=== PATIENT | male | born 1940 | race American Indian/Alaskan Native ===

== ENCOUNTER 2018-12-13 14:29 | Inpatient (IN) | payer MEDICARE ==
[2018-12-13] MEDS ORDERED: ONDANSETRON 4 MG/2 ML INJ ONE (15:24)
[2018-12-13 15:26] LABS: Hematocrit 27.7 % (35.5-45.6); Hemoglobin 8.6 gm/dl (11.8-15.2); Mean Corpuscular HGB Conc 31 % (32-34); Mean Corpuscular Volume 85 fl (84-94); Platelet Count 106 K/mm3 (140-440); Red Blood Count 3.26 M/mm3 (3.65-5.03)
[2018-12-13] MEDS ORDERED: ONDANSETRON 4 MG/2 ML INJ IV ONE (15:28)
[2018-12-13 15:41] LABS: Red Cell Distribution Width 22.9 % (13.2-15.2)
[2018-12-13 16:11] LABS: Alanine Aminotransferase TNR units/L (7-56); BUN/Creatinine Ratio TNR; Blood Urea Nitrogen TNR mg/dL (9-20); Calcium TNR mg/dL (8.4-10.2)
[2018-12-13 16:12] LABS: Albumin TNR g/dL (3.9-5); Hemolysis Index TNR
[2018-12-13 16:43] LABS: Basophils % (Manual) 0 % (0.0-1.8); Eosinophils % (Manual) 0 % (0.0-4.3); Total Cells Counted 100
[2018-12-13 16:45] LABS: Anisocytosis 1+
[2018-12-13] MEDS ORDERED: MORPHINE 4 MG/1 ML INJ IV ONE (17:07)
[2018-12-13] MEDS ORDERED: SODIUM CHLORIDE 0.9% 250ML 250 ML IV ONE (17:07)
[2018-12-13 17:11] LABS: Alanine Aminotransferase 111 units/L (7-56); Albumin 3.7 g/dL (3.9-5); BUN/Creatinine Ratio 19; Blood Urea Nitrogen 17 mg/dL (9-20); Calcium 8.7 mg/dL (8.4-10.2); Hemolysis Index 6
--- NOTE | 2018-12-13 17:12 | Emergency Department Report ---
ED General Adult HPI - General Chief complaint: Laceration/Recheck/Suture Stated complaint: LOW HEMOGLOBIN Time Seen by Provider: 12/13/18 16:33 Source: patient, family, EMS ( EMS documentation not available at time of chart dictation ), RN notes reviewed, old records reviewed Mode of arrival: Stretcher Limitations: Physical Limitation - History of Present Illness Initial comments: during the entire history and physical, I am ct tech and escorted by nurse Jordi Agudelo This is a 77-year-old gentleman. This patient is not known to this provider pre viously. 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 The hospitalization was interrupted with the patient leaving AGAINST MEDICAL ADVICE October 14 through October 19, also recently hospitalized at [facility] 11/15/2018 2 11/24/2018 for recurrent left wrist pain, treated with colchicine and allopurinol. Patient has reportedly followed up with an outpatient physician, Dr. Whitmore for potential cancer treatment, however, therapy has been withheld secondary to concerns regarding side effects profile. A bone marrow biopsy from August 2018 showed worsening platelet counts, anemia, conversion to amL. The patient is sent to us by a local personal half-way/retirement for evaluation of low blood counts and possible sodium imbalance. In the emergency room, the patient is awake to name, location. He complains of nontraumatic right wrist pain and right elbow pain. He states this pain is new over the past couple days. He denies additional complaints. He denies headache, neck pain, chest pain, abdominal pain, shortness of breath, hematemesis, bright red blood per rectum. Apparently, had outpatient laboratory studies performed, which sh owed a white blood cell count of 29.4, hemoglobin of 7.7, hematocrit of 25, and a sodium of 131. The patient is adamant that the wrist pain on the right side is new. As per review of his medical records, it appears that he is on Cedinir 300 mg every 12 hours for 3 days for acute leukemia. His enclose paperwork does not appear to indicate other outpatient antibiotics. -: Gradual, days(s) Location: right, upper extremity Consistency: constant Improves with: medication, rest Worsens with: movement - Related Data Home Medications Medication Instructions Recorded Confirmed Last Taken Advair Diskus 250-50 mcg 50 mcg INHALATION BID 12/13/18 12/13/18 Unknown Amlodipine Besylate 10 mg PO DAILY 12/13/18 12/13/[address] 81 mg PO DAILY 12/13/18 12/13/18 Unknown Cefdinir 300 mg PO BID 12/13/18 12/13/18 Unknown Allergies Allergy/AdvReac Type Severity Reaction Status Date / Time No Known Allergies Allergy Verified 12/13/18 15:00 ED Review of Systems ROS: Stated complaint: LOW HEMOGLOBIN Other details as noted in HPI Constitutional: malaise Eyes: denies: eye discharge ENT: denies: congestion Respiratory: denies: wheezing Cardiovascular: denies: syncope Gastrointestinal: denies: abdominal pain Genitourinary: denies: dysuria Musculoskeletal: joint swelling, arthralgia, myalgia Skin: denies: lesions Neurological: weakness Hematological/Lymphatic: denies: easy bleeding ED Past Medical Hx - Past Medical History Previous Medical History?: Yes Hx Hypertension: Yes Hx Asthma: Yes - Surgical History Past Surgical History?: No - Social History Smoking Status: Never Smoker Substance Use Type: None - Medications Home Medications: Home Medications Medication Instructions Recorded Confirmed Last Taken Type Advair Diskus 250-50 mcg 50 mcg INHALATION BID 12/13/18 12/13/18 Unknown History Amlodipine Besylate 10 mg PO DAILY 12/13/18 12/13/18 Unknown History Aspirin EC DR 81 mg PO DAILY 12/13/18 12/13/18 Unknown History Cefdinir 300 mg PO BID 12/13/18 12/13/18 Unknown History ED Physical Exam - General Limitations: No Limitations, Other (chaperoned by ARNAUD Agudelo) General appearance: alert, in no apparent distress - Head Head exam: Present: atraumatic, normocephalic - Eye Eye exam: Present: normal appearance - ENT ENT exam: Present: normal exam, normal orophraynx, mucous membranes moist, normal external ear exam - Neck Neck exam: Present: normal inspection, full ROM. Absent: tenderness, meningismus - Respiratory Respiratory exam: Present: normal lung sounds bilaterally. Absent: respiratory distress - Cardiovascular Cardiovascular Exam: Present: regular rate, normal rhythm, normal heart sounds. Absent: bradycardia, tachycardia, irregular rhythm, systolic murmur, diastolic murmur, rubs, gallop - GI/Abdominal GI/Abdominal exam: Present: soft. Absent: distended, tenderness, guarding, rebound, rigid, pulsatile mass - Rectal Rectal exam: Present: normal inspection, heme (-) stool, other (chaperoned by Wilman Agudelo). Absent: black stool, bloody stool - exam: Present: normal inspection - Extremities Exam Extremities exam: Present: normal inspection, tenderness (patient has pain with passive and active range of motion right elbow, right wrist. Patient cannot completely range these joints secondary to pain.), other (there is right elbow tenderness, and right wrist tenderness. There is right elbow warmth, and right wrist warmth. There is no shoulder tenderness, and no lower extremity tenderness. Left upper extremity is nontender. 2+ pulses noted in the bilateral upper, lower extremities. Muscular compartments are soft.) - Back Exam Back exam: Present: normal inspection. Absent: tenderness, CVA tenderness (R), CVA tenderness (L), paraspinal tenderness, vertebral tenderness - Neurological Exam Neurological exam: Present: alert, other (is no facial droop. The tongue is midline. The extraocular movements are intact bilaterally. 5 out of 5 strength bilateral upper, lower extremities. Sensation is intact to light touch bilateral upper, lower extremities.) - Psychiatric Psychiatric exam: Present: normal affect, normal mood - Skin Skin exam: Present: warm, dry, intact, normal color. Absent: rash ED Course Vital Signs 12/13/18 12/13/18 15:01 17:43 Temperature 98.6 F 100.2 F H Pulse Rate 96 H 81 Respiratory 16 16 Rate Blood Pressure 121/63 Blood Pressure 151/77 [Left] O2 Sat by Pulse 100 95 Oximetry ED Medical Decision Making - Lab Data Result diagrams: 12/13/18 15:05 12/13/18 16:36 Vital Signs 12/13/18 12/13/18 15:01 17:43 Temperature 98.6 F 100.2 F H Pulse Rate 96 H 81 Respiratory 16 16 Rate Blood Pressure 121/63 Blood Pressure 151/77 [Left] O2 Sat by Pulse 100 95 Oximetry Labs 12/13/18 12/13/18 12/13/18 15:00 15:05 15:05 WBC 24.6 H RBC 3.26 L Hgb 8.6 L Hct 27.7 L MCV 85 MCH 26 L MCHC 31 L RDW 22.9 H Plt Count 106 L [place] % (Auto) Software Engineer Sales Add Manual Diff Complete Total Counted 100 Seg Neutrophils % Software Engineer Sales Seg Neuts % (Manual) 34.0 L Band Neutrophils % 0 Lymphocytes % (Manual) 15.0 Reactive Lymphs % (Man) 0 Monocytes % (Manual) 49.0 H Eosinophils % (Manual) 0 Basophils % (Manual) 0 Metamyelocytes % 0 Myelocytes % 0 Promyelocytes % 0 Blast Cells % 2.0 Nucleated RBC % Not Reportable Seg Neutrophils # Man 8.4 H Band Neutrophils # 0.0 Lymphocytes # (Manual) 3.7 Abs React Lymphs (Man) 0.0 Monocytes # (Manual) 12.1 H Eosinophils # (Manual) 0.0 Basophils # (Manual) 0.0 Metamyelocytes # 0.0 Myelocytes # 0.0 Promyelocytes # 0.0 Blast Cells # 0.2 Hypersegmented Neuts Not Reportable Hyposegmented Neuts Not Reportable Hypogranular Neuts Not Reportable Smudge Cells Not Reportable Toxic Granulation Not Reportable Toxic Vacuolation Not Reportable Dohle Bodies Not Reportable Pelger-Huet Anomaly Not Reportable Willow Rods Not Reportable Platelet Estimate Not Reportable Clumped Platelets Not Reportable Plt Clumps, EDTA Not Reportable Large Platelets Not Reportable Giant Platelets Not Reportable Platelet Satelliting Not Reportable Plt Morphology Comment Not Reportable RBC Morphology Not Reportable Dimorphic RBCs Not Reportable Polychromasia Not Reportable Hypochromasia Not Reportable Poikilocytosis Not Reportable Anisocytosis 1+ Microcytosis Not Reportable Macrocytosis Not Reportable Spherocytes Not Reportable Pappenheimer Bodies Not Reportable Sickle Cells Not Reportable Target Cells Not Reportable Tear Drop Cells Not Reportable Ovalocytes Not Reportable Helmet Cells Not Reportable [place] Bodies Not Reportable [place] Rings Not Reportable [place] Cells Not Reportable Bite Cells Not Reportable Crenated Cell Not Reportable Elliptocytes Not Reportable Acanthocytes (Spur) Not Reportable Rouleaux Not Reportable Hemoglobin C Crystals Not Reportable Schistocytes Not Reportable Malaria parasites Not Reportable Terry Bodies Not Reportable Hem Pathologist Commnt Sent to pathology Sodium Potassium Chloride Carbon Dioxide Anion Gap BUN Creatinine Estimated GFR BUN/Creatinine Ratio Glucose POC Glucose 141 H Calcium Total Bilirubin AST ALT Alkaline Phosphatase Total Protein Albumin Albumin/Globulin Ratio Urine Color Urine Turbidity Urine pH Ur Specific [place] Urine Protein Urine Glucose (UA) Urine Ketones Urine Blood Urine Nitrite Urine Bilirubin Urine Urobilinogen Ur Leukocyte Esterase Urine WBC (Auto) Urine RBC (Auto) U Epithel Cells (Auto) Urine Bacteria (Auto) Urine Mucus Urine Yeast (Budding) Blood Type B POSITIVE Antibody Screen Negative 12/13/18 12/13/18 12/13/18 15:05 16:36 Unknown WBC RBC Hgb Hct MCV MCH MCHC RDW Plt Count [place] % (Auto) Add Manual Diff Total Counted Seg Neutrophils % Seg Neuts % (Manual) Band Neutrophils % Lymphocytes % (Manual) Reactive Lymphs % (Man) Monocytes % (Manual) Eosinophils % (Manual) Basophils % (Manual) Metamyelocytes % Myelocytes % Promyelocytes % Blast Cells % Nucleated RBC % Seg Neutrophils # Man Band Neutrophils # Lymphocytes # (Manual) Abs React Lymphs (Man) Monocytes # (Manual) Eosinophils # (Manual) Basophils # (Manual) Metamyelocytes # Myelocytes # Promyelocytes # Blast Cells # Hypersegmented Neuts Hyposegmented Neuts Hypogranular Neuts Smudge Cells Toxic Granulation Toxic Vacuolation Dohle Bodies Pelger-Huet Anomaly [place] Rods Platelet Estimate Clumped Platelets Plt Clumps, EDTA Large Platelets Giant Platelets Platelet Satelliting Plt Morphology Comment RBC Morphology Dimorphic RBCs Polychromasia Hypochromasia Poikilocytosis Anisocytosis Microcytosis Macrocytosis Spherocytes Pappenheimer Bodies Sickle Cells Target Cells Tear Drop Cells Ovalocytes Helmet Cells [place] Bodies [place] Rings [place] Cells Bite Cells Crenated Cell Elliptocytes Acanthocytes (Spur) Rouleaux Hemoglobin C Crystals Schistocytes Malaria parasites Terry Bodies Hem Pathologist Commnt Sodium TNR 131 L Potassium TNR 4.7 Chloride TNR 95.1 L Carbon Dioxide TNR 19 L Anion Gap TNR 22 BUN TNR 17 Creatinine TNR 0.9 Estimated GFR TNR > 60 BUN/Creatinine Ratio TNR 19 Glucose TNR 130 H POC Glucose Calcium TNR 8.7 Total Bilirubin TNR 0.60 AST TNR 99 H ALT TNR 111 H Alkaline Phosphatase TNR 156 H Total Protein TNR 8.2 Albumin TNR 3.7 L Albumin/Globulin Ratio TNR 0.8 Urine Color Yellow Urine Turbidity Slightly-cloudy Urine pH 5.0 Ur Specific [place] 1.014 Urine Protein <15 mg/dl Urine Glucose (UA) Neg Urine Ketones Tr Urine Blood Mod Urine Nitrite Neg Urine Bilirubin Neg Urine Urobilinogen < 2.0 Ur Leukocyte Esterase Lg Urine WBC (Auto) 52.0 H Urine RBC (Auto) 20.0 U Epithel Cells (Auto) < 1.0 Urine Bacteria (Auto) 2+ Urine Mucus Few Urine Yeast (Budding) 1+ Blood Type Antibody Screen - EKG Data -: EKG Interpreted by [facility] EKG shows normal: sinus rhythm Rate: normal - EKG Data 12/13/18 18:30 EKG today shows a sinus rhythm, 91 bpm, borderline leftward axis deviation, left ventricular hypertrophy, QTC within normal limits, there is no endorsement of chest pain, the EKG is abnormal, the EKG is not consistent with ST elevation myocardial infarction. - Radiology Data Radiology results: report reviewed, image reviewed Print Report Referring Physician: ANGELA PARKS Patient Name: DIAMANTE CHAN Date of : 1940 Sex: Male Report Date: 2018-12-13 Report Status: Finalized Findings [facility] [address] [place] [address] XRay Report Signed Patient: DIAMANTE CHAN MR#: [id number] 0 : 1940 Acct:[id number] Age/Sex: 77 / M ADM Date: 12/13/18 Loc: ED Attending Dr: Ordering Physician: ANGELA PARKS MD Date of Service: 12/13/18 Procedure(s): XR wrist 3+V RT Accession Number(s): [id number] cc: ANGELA PARKS MD Fluoro Time In Minutes: RIGHT WRIST 4 VIEWS INDICATION / CLINICAL INFORMATION: rigth wrist pain. COMPARISON: None available. FINDINGS: A small metallic shrapnel fragment is seen along the volar and radial aspect of index finger metacarpal. No fracture, dislocation or soft tissue swelling is seen within the right wrist. 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 Mild to moderate degenerative arthrosis is seen within the DIP PIP joints right hand with moderate degenerative arthrosis of thumb CMC and MCP joints as well as the index and long finger MCP joints. Signer Name: Tito Luong MD Signed: 12/13/2018 5:54 PM Workstation Name: [id number] Transcribed By: Dictated By: Tito Luong MD Electronically Authenticated By: Tito Luong MD Signed Date/Time: 12/13/181753 Print Report Referring Physician: ANGELA PARKS Patient Name: DIAMANTE CHAN Date of : 1940 Sex: Male Report Date: 2018-12-13 Report Status: Finalized Findings [facility] [address] [place] [address] XRay Report Signed Patient: DIAMANTE CHAN MR#: [id number] 0 : 1940 Acct:[id number] Age/Sex: 77 / M ADM Date: 12/13/18 Loc: ED Attending Dr: Ordering Physician: ANGELA PARKS MD Date of Service: 12/13/18 Procedure(s): XR elbow 3+V RT Accession Number(s): [id number] cc: ANGELA PARKS MD Fluoro Time In Minutes: RIGHT ELBOW, 3 VIEWS 12/13/2018 INDICATION / CLINICAL INFORMATI ON: right elbow pain. COMPARISON: None available. FINDINGS: No acute fracture or dislocation. Hypertrophic degenerative changes are seen in the posterior olecranon. Soft tissue calcification is seen at the level the ulnar collateral ligament. Soft tissue ossification is noted in the posterior distal forearm. Signer Name: Juan Ríos MD Signed: 12/13/2018 5:58 PM Workstation Name: [id number] Transcribed By: [place] Dictated By: Juan Ríos MD Electronically Authenticated By: Juan Ríos MD Signed Date/Time: 12/13/181757 - Medical Decision Making Differential diagnosis, including not limited to: Laboratory error, hemoconcentration, hemodilution, septic joint, gout, pseudogout Assessment and plan: 77-year-old gentleman sent to the ER for evaluation of abnormal laboratory studies, patient awake and alert, follows commands, now complaining of right elbow pain and right wrist pain. Heart rate greater than 90 bpm, found to have low-grade temperature 100.2 degrees, also has leukocytosis of 26,000. Suspect multiple things going on, including anemia, pain, however, were uncertain if the joint pain is secondary to gout, pseudogout, or septic arthritis. Given his complex past history, abnormal vital signs, physical exam, we will admit the patient for pain control, empiric antibiotics, orthopedic consultation, and medical team optimization. Contacted orthopedic surgeon on-call, Dr. Kellogg, who agreed to follow in consultation. Contacted Hospital physician, Dr. White, who will admit the patient to the medical service. Of note, patient does not require packed red blood cell transfusion at this time. We have requested his old medical records from [place], they have not arrived as of yet. Critical care attestation.: If time is entered above; I have spent that time in minutes in the direct care of this critically ill patient, excluding procedure time. ED Disposition Clinical Impression: Polyarthritis, SIRS (systemic inflammatory response syndrome) Disposition: OP ADMIT IP TO THIS HOSP Is pt being admited?: Yes Condition: Fair
[2018-12-13 17:17] LABS: Bacteria,Urine 2+ /HPF (Negative); Bilirubin,Urine NEG (Negative); Blood,Urine MOD (Negative); Color,Urine Yellow (Yellow); Mucus,Urine FEW /HPF; Protein,Urine <15 mg/dL mg/dL (Negative); Urobilinogen,Urine < 2.0 mg/dL (<2.0)
--- NOTE | 2018-12-13 17:59 | XRay Report ---
RIGHT WRIST 4 VIEWS INDICATION / CLINICAL INFORMATION: rigth wrist pain. COMPARISON: None available. FINDINGS: A small metallic shrapnel fragment is seen along the volar and radial aspect of index finger metacarp al. No fracture, dislocation or soft tissue swelling is seen within the right wrist. Advanced degener ative arthrosis is seen within the thumb IP joint. Mild to moderate degenerative arthrosis is seen wi thin the DIP PIP joints right hand with moderate degenerative arthrosis of thumb CMC and MCP joints a s well as the index and long finger MCP joints. Signer Name: Tito Luong MD Signed: 12/13/2018 5:54 PM Workstation Name: [id number]
--- NOTE | 2018-12-13 18:02 | XRay Report ---
RIGHT ELBOW, 3 VIEWS 12/13/2018 INDICATION / CLINICAL INFORMATION: right elbow pain. COMPARISON: None available. FINDINGS: No acute fracture or dislocation. Hypertrophic degenerative changes are seen in the posterior olecranon. Soft tissue calcification is seen at the level the ulnar collateral ligament. Soft tissue ossification is noted in the posterior distal forearm. Signer Name: Juan Ríos MD Signed: 12/13/2018 5:58 PM Workstation Name: [id number]
[2018-12-13] MEDS ORDERED: ONDANSETRON 4 MG/2 ML INJ IV PRN (18:19)
[2018-12-13] MEDS ORDERED: ALBUTEROL 2.5 MG/3 ML NEBU IH PRN (18:19)
[2018-12-13] MEDS ORDERED: SODIUM CHLORIDE 0.9% 1000 ML IV SOLN IV ONE (18:19)
[2018-12-13] MEDS ORDERED: VANCOMYCIN 1,250 MG in SODIUM CHLORIDE 0.9% 500 ML 500 ML IV ONE (18:19)
--- NOTE | 2018-12-13 18:22 | History and Physical Report ---
History of Present Illness Chief complaint: My arm hurts, and im just weak History of present illness: 77 [facility]O Male Assisted Living Facility Resident with Debility, CML, COPD, Cardiomyopathy, CAD S/P Stent Placement present to ED for evaluation. Pt states that he has experienced generalized weakness over the past 1 week with worsening symptoms over the same time frame. Pt also reports Left wrist and elbow pain with worsening symptoms over the past 2 days. Pt states that pain is 8/10, and limits his ability to use his left arm. Pain is constant, worsened with movement, relieved with rest. Pt transported to [facility] via private vehicle. Pt seen and evaluated in ED and found to have SIRS, Left Elbow pain, UTI, Acidosis, and Hyponatremia. Pt admitted to TINY unit. Ortho surgery consulted in ED. Pt denies fever, chills, CP, Palpitations, NVD, Skin rash, productive cough, or recent ill contacts. Pt treated for Septic Arthritis at [facility]. Pt treated with 5 week course of IV antibiotic therapy. No prior admission for review. All listed mediation reconciled at time of admission. Past History Past Medical History: other (see hpi) Past Surgical History: No surgical history, Other (reviewed) Social history: single. denies: smoking, alcohol abuse, prescription drug abuse Family history: no significant family history (reviewed) Medications and Allergies Allergies Allergy/AdvReac Type Severity Reaction Status Date / Time No Known Allergies Allergy Verified 12/13/18 15:00 Home Medications Medication Instructions Recorded Confirmed Last Taken Type Advair Diskus 250-50 mcg 50 mcg INHALATION BID 12/13/18 12/13/18 Unknown History Amlodipine Besylate 10 mg PO DAILY 12/13/18 12/13/18 Unknown History Aspirin EC DR 81 mg PO DAILY 12/13/18 12/13/18 Unknown History Cefdinir 300 mg PO BID 12/13/18 12/13/18 Unknown History Active Meds: Active Medications Acetaminophen (Tylenol) 650 mg PO Q4H PRN PRN Reason: Pain MILD(1-3)/Fever >100.5/[place] Albuterol (Proventil) 2.5 mg IH Q4HRT PRN PRN Reason: Shortness Of Breath Vancomycin HCl 1,250 mg/ (Sodium Chloride) 525 mls @ 333 mls/hr IV ONCE ONE; Protocol Stop: 12/13/18 19:53 Ceftriaxone Sodium (Rocephin/Ns 2 Gm/100 Ml) 2 gm in 100 mls @ 200 mls/hr IV NOW STEVE; Protocol Miscellaneous Medication (Advair Diskus 250-50 Mcg) 50 mcg INHALATION BID STEVE Miscellaneous Medication (Amlodipine Besylate) 10 mg PO DAILY STEVE Miscellaneous Medication (Aspirin Ec Dr) 81 mg PO DAILY STEVE Ondansetron HCl (Zofran) 4 mg IV Q8H PRN PRN Reason: Nausea And Vomiting Sodium Chloride (Sodium Chloride Flush Syringe 10 Ml) 10 ml IV BID STEVE Sodium Chloride (Sodium Chloride Flush Syringe 10 Ml) 10 ml IV PRN PRN PRN Reason: LINE FLUSH Review of Systems Constitutional: no weight loss, no weight gain, no fever, no chills Ears, nose, mouth and throat: no ear pain, no ear discharge, no nose pain, no nasal congestion, no nasal discharge Cardiovascular: no chest pain, no orthopnea, no rapid/irregular heart beat, no edema, no lightheadedness Respiratory: no cough, no cough with sputum, no excessive sputum, no hemoptysis, no shortness of breath Gastrointestinal: no abdominal pain, no vomiting, no diarrhea, no constipation, no change in bowel habits Genitourinary Male: no discharge, no urinary frequency, no urinary hesitancy Rectal: no pain, no incontinence, no bleeding Musculoskeletal: other (left arm pain), no neck stiffness, no neck pain, no arm numbness/tingling, no shooting leg pain, no leg numbness/tingling Integumentary: no rash, no pruritis, no sores Neurological: no head injury, no parathesias, no seizures, no ataxia, no lack of coordination Psychiatric: no anxiety, no change in sleep habits, no sleep disturbances, no insomnia, no change in appetite, no change in libido Endocrine: no cold intolerance, no heat intolerance, no polyphagia, no polydipsia, no nocturia, no excessive sweating Hematologic/Lymphatic: no easy bruising, no easy bleeding, no lymphadenopathy Allergic/Immunologic: no urticaria, no allergic rhinitis, no persistent infections Exam - Constitutional Vitals: Temp Pulse Resp BP Pulse Ox 100.2 F H 81 16 151/77 95 12/13/18 17:43 12/13/18 17:43 12/13/18 17:43 12/13/18 17:43 12/13/18 17:43 General appearance: Present: mild distress - EENT Eyes: Present: PERRL ENT: hearing intact, clear oral mucosa - Neck Neck: Present: supple, normal ROM - Respiratory Respiratory effort: normal Respiratory: bilateral: CTA - Cardiovascular Heart Sounds: Present: S1 & S2. Absent: rub, click - Extremities Extremities: pulses symmetrical, No edema Peripheral Pulses: within normal limits - Abdominal General gastrointestinal: Present: soft, non-tender, non-distended, normal bowel sounds Male genitourinary: Present: normal - Integumentary Integumentary: Present: clear, warm, dry - Musculoskeletal Musculoskeletal: gait normal, strength equal bilaterally - Psychiatric Psychiatric: appropriate mood/affect, intact judgment & insight - Neurologic Neurologic: CNII-XII intact, moves all extremities Results - Labs CBC & Chem 7: 12/13/18 15:05 12/13/18 16:36 Labs: Abnormal lab results 12/13/18 12/13/18 12/13/18 Range/Units 15:00 15:05 16:36 WBC 24.6 H (4.5-11.0) K/mm3 RBC 3.26 L (3.65-5.03) M/mm3 Hgb 8.6 L (11.8-15.2) gm/dl Hct 27.7 L (35.5-45.6) % MCH 26 L (28-32) pg MCHC 31 L (32-34) % RDW 22.9 H (13.2-15.2) % Plt Count 106 L (140-440) K/mm3 Seg Neuts % (Manual) 34.0 L (40.0-70.0) % Monocytes % (Manual) 49.0 H (0.0-7.3) % Seg Neutrophils # Man 8.4 H (1.8-7.7) K/mm3 Monocytes # (Manual) 12.1 H (0.0-0.8) K/mm3 Sodium 131 L (137-145) mmol/L Chloride 95.1 L (98-107) mmol/L Carbon Dioxide 19 L (22-30) mmol/L Glucose 130 H (75-100) mg/dL POC Glucose 141 H (70-105) AST 99 H (5-40) units/L ALT 111 H (7-56) units/L Alkaline Phosphatase 156 H (35-129) units/L Albumin 3.7 L (3.9-5) g/dL Urine WBC (Auto) (0.0-6.0) /HPF 12/13/18 Range/Units Unknown WBC (4.5-11.0) K/mm3 RBC (3.65-5.03) M/mm3 Hgb (11.8-15.2) gm/dl Hct (35.5-45.6) % MCH (28-32) pg MCHC (32-34) % RDW (13.2-15.2) % Plt Count (140-440) K/mm3 Seg Neuts % (Manual) (40.0-70.0) % Monocytes % (Manual) (0.0-7.3) % Seg Neutrophils # Man (1.8-7.7) K/mm3 Monocytes # (Manual) (0.0-0.8) K/mm3 Sodium (137-145) mmol/L Chloride (98-107) mmol/L Carbon Dioxide (22-30) mmol/L Glucose (75-100) mg/dL POC Glucose (70-105) AST (5-40) units/L ALT (7-56) units/L Alkaline Phosphatase (35-129) units/L Albumin (3.9-5) g/dL Urine WBC (Auto) 52.0 H (0.0-6.0) /HPF Assessment and Plan - Patient Problems (1) SIRS (systemic inflammatory response syndrome) Current Visit: Yes Status: Acute Plan to address problem: IV antibiotic therapy, CBC, CMP, Urinalysis, chest x ray, LUE x ray. (2) Acidosis Current Visit: Yes Status: Acute Plan to address problem: IVF resuscitation therapy, monitor uop q shift, supportive care (3) UTI (urinary tract infection) Current Visit: Yes Status: Acute Qualifiers: Encounter type: initial encounter Plan to address problem: IV antibiotic therapy, CBC, CMP, urinalysis, (4) Hyponatremia syndrome Current Visit: Yes Status: Acute Plan to address problem: IVF resuscitation therapy,repeat bmp (5) Polyarthritis Current Visit: Yes Status: Acute Plan to address problem: Ortho consulted in ED, (6) CML (chronic myelocytic leukemia) Current Visit: Yes Status: Acute Plan to address problem: Outpatient Hematology f/u care. (7) Debility Current Visit: Yes Status: Acute Plan to address problem: PT consulted, supportive care. (8) DVT prophylaxis Current Visit: Yes Status: Acute Plan to address problem: SCD to BLE while in bed,
[2018-12-13] MEDS ORDERED: KETOROLAC 30 MG/1 ML INJ IV ONE (18:31)
[2018-12-13] MEDS ORDERED: COLCHICINE 0.6 MG CAP PO ONE ×2 (18:31→22:00)
[2018-12-13 18:35] LABS: Albumin 3.6 g/dL (3.9-5); Bilirubin,Direct 0.3 mg/dL (0-0.2)
[2018-12-13] MEDS ORDERED: KETOROLAC 30 MG/1 ML INJ ONE (18:42)
[2018-12-13] MEDS ORDERED: cefTRIAXone/NS 2 GM/100 ML 2 GM/100 ML BAG IV ONE (18:45)
[2018-12-13 18:59] LABS: C-Reactive Protein 25.3 mg/dL (0.00-1.30)
[2018-12-13] MEDS ORDERED: VANCOMYCIN PHARMACY TO DOSE IV SCH (19:00)
[2018-12-13] MEDS ORDERED: cefTRIAXone/NS 2 GM/100 ML 2 GM/100 ML BAG IV SCH (19:00)
[2018-12-13] MEDS: BUDESONIDE 0.5 MG/2 ML NEBU IH SCH (20:09)
[2018-12-13] MEDS: ARFORMOTEROL 15 MCG/2 ML NEBU IH SCH (20:09)
[2018-12-13] MEDS: oxyCODONE /ACETAMINOPHEN 5-325MG TAB PO PRN (20:42)
[2018-12-13] MEDS ORDERED: ADVAIR INHALATION SCH (22:00)
[2018-12-14 05:00] LABS: Hematocrit 26.4 % (35.5-45.6); Hemoglobin 8.2 gm/dl (11.8-15.2); Mean Corpuscular HGB Conc 31 % (32-34); Mean Corpuscular Volume 85 fl (84-94); Red Blood Count 3.12 M/mm3 (3.65-5.03)
[2018-12-14 05:08] LABS: Platelet Count 85 K/mm3 (140-440); Red Cell Distribution Width 22.2 % (13.2-15.2)
[2018-12-14 05:27] LABS: Alanine Aminotransferase 102 units/L (7-56); Albumin 3.3 g/dL (3.9-5); BUN/Creatinine Ratio 17; Blood Urea Nitrogen 12 mg/dL (9-20); Hemolysis Index 2
[2018-12-14 06:21] LABS: Basophils % (Manual) 0 % (0.0-1.8); Eosinophils % (Manual) 0 % (0.0-4.3); Total Cells Counted 100
[2018-12-14 06:23] LABS: Platelet Estimate Consistent w Auto; Schistocytes Few; Target Cells 1+
[2018-12-14] MEDS ORDERED: VANCOMYCIN/NS 1 GM/250 ML 1 GM/250 ML BAG IV SCH (07:00)
--- NOTE | 2018-12-14 07:58 | Progress Note ---
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 Pt states that he has experienced generalized weakness over the past 1 week with worsening symptoms over the same time frame. Pt also reports Left wrist and elbow pain with worsening symptoms over the past 2 days. Pt states that pain is 8/10, and limits his ability to use his left arm. Pain is constant, worsened with movement, relieved with rest. Pt transported to [facility] via private vehicle. Pt seen and evaluated in ED and found to have SIRS, Left Elbow pain, UTI, Acidosis, and Hyponatremia. Pt admitted to [facility]IN[facility] unit. Ortho surgery consulted in ED. Pt denies fever, chills, CP, Palpitations, NVD, Skin rash, productive cough, or recent ill contacts. * Pt treated for Septic Arthritis at [facility]. Pt treated with 5 week course of IV antibiotic therapy October 02 through October 30 for septic arthritis of left wrist, status post I and D; reportedly status post 5 weeks of ceftriaxone and vancomycin completed on October 30. No prior ad mission for review. All listed mediation reconciled at time of admission. * also recently hospitalized at [facility] 11/15/2018 2 11/24/2018 for recurrent left wrist pain, treated with colchicine and allopurinol. * Patient has reportedly followed up with an outpatient physician, Dr. Whitmore for potential cancer treatment, however, therapy has been withheld secondary to concerns regarding side effects profile. * A bone marrow biopsy from August 2018 showed worsening platelet counts, anemia, conversion to amL. 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 His enclose paperwork does not appear to indicate other outpatient antibiotics. - Patient Problems (1) SEPSIS -POA Current Visit: Yes Status: Acute Plan to address problem: IV antibiotic therapy, CBC, CMP, Urinalysis, chest x ray, LUE x ray. (2) Acidosis Current Visit: Yes Status: Acute Plan to address problem: IVF resuscitation therapy, monitor uop q shift, supportive care (3) UTI (urinary tract infection) Current Visit: Yes Status: Acute Qualifiers: Encounter type: initial encounter Plan to address problem: IV antibiotic therapy, CBC, CMP, urinalysis, (4) Hyponatremia syndrome Current Visit: Yes Status: Acute Plan to address problem: IVF resuscitation therapy,repeat bmp (5) Polyarthritis Current Visit: Yes Status: Acute Plan to address problem: Ortho consulted in ED, ID consult ?recurrent septic arthritis Recently treated for gout with colchicine and allopurinol (6) 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 (7) Debility Current Visit: Yes Status: Acute Plan to address problem: PT consulted, supportive care. (8) Elevated LFTS Will monitor. No abdominal pain (9) Leukocytosis Likely secondary to sepsis vs AMS (10)Thrombocytopenia SCD for dvt prophy Monitor closely (11) DVT prophylaxis Current Visit: Yes Status: Acute Plan to address problem: SCD to BLE while in bed, History Interval history: Patient seen and examined reports some symptom improvement although hx not quit reliable. He denies any nausea, vomiting or diarrhea. Unable to move right arm but this is chronic Hospitalist Physical - Physical exam Narrative exam: VITAL SIGNS: Reviewed. GENERAL: The patient appears normally developed, chronically ill appearing, Vital signs as documented. HEAD: No signs of head trauma. EYES: Pupils are equal. Extraocular motions intact. EARS: Hearing grossly intact. MOUTH: Oropharynx is normal. NECK: No adenopathy, no JVD. CHEST: Chest with clear breath sounds bilaterally. No wheezes, rales, or rhonchi. CARDIAC: Regular rate and rhythm. S1 and S2, without murmurs, gallops, or rubs. VASCULAR: No Edema. Peripheral pulses normal and equal in all extremities. ABDOMEN: Soft, non tender and non distended. No rebound or guarding, and no masses palpated. Bowel Sounds normal. MUSCULOSKELETAL: Left lower ext with Decreased ROM, warm to touch, red, otherwise other joints with Good range of motion of all major joints. Extremities without clubbing, cyanosis or edema. NEUROLOGIC EXAM: Alert and oriented x 3 No focal sensory or strength deficits. Speech normal. Follows commands. PSYCHIATRIC: Mood normal. SKIN: denial exam as documented in skin assessment - Constitutional Vitals: Temp Pulse Resp BP Pulse Ox 98.0 F 71 20 123/69 99 12/14/18 07:07 12/14/18 01:50 12/14/18 07:07 12/14/18 07:07 12/14/18 01:50 General appearance: Present: mild distress Results - Labs CBC & Chem 7: 12/14/18 04:05 12/14/18 04:05 Labs: Laboratory Last Values WBC 17.6 K/mm3 (4.5-11.0) H 12/14/18 04:05 RBC 3.12 M/mm3 (3.65-5.03) L 12/14/18 04:05 Hgb 8.2 gm/dl (11.8-15.2) L 12/14/18 04:05 Hct 26.4 % (35.5-45.6) L 12/14/18 04:05 MCV 85 fl (84-94) 12/14/18 04:05 MCH 26 pg (28-32) L 12/14/18 04:05 MCHC 31 % (32-34) L 12/14/18 04:05 RDW 22.2 % (13.2-15.2) H 12/14/18 04:05 Plt Count 85 K/mm3 (140-440) L 12/14/18 04:05 [place] % (Auto) Lead Programmer 12/14/18 04:05 Add Manual Diff Complete 12/14/18 04:05 Total Counted 100 12/14/18 04:05 Seg Neutrophils % Lead Programmer 12/13/18 15:05 Seg Neuts % (Manual) 47.0 % (40.0-70.0) 12/14/18 04:05 Band Neutrophils % 0 % 12/14/18 04:05 Lymphocytes % (Manual) 9.0 % (13.4-35.0) L 12/14/18 04:05 Reactive Lymphs % (Man) 0 % 12/14/18 04:05 Monocytes % (Manual) 44.0 % (0.0-7.3) H 12/14/18 04:05 Eosinophils % (Manual) 0 % (0.0-4.3) 12/14/18 04:05 Basophils % (Manual) 0 % (0.0-1.8) 12/14/18 04:05 Metamyelocytes % 0 % 12/14/18 04:05 Myelocytes % 0 % 12/14/18 04:05 Promyelocytes % 0 % 12/14/18 04:05 Blast Cells % 0 % 12/14/18 04:05 Nucleated RBC % Not Reportable 12/14/18 04:05 Seg Neutrophils # Man 8.3 K/mm3 (1.8-7.7) H 12/14/18 04:05 Band Neutrophils # 0.0 K/mm3 12/14/18 04:05 Lymphocytes # (Manual) 1.6 K/mm3 (1.2-5.4) 12/14/18 04:05 Abs React Lymphs (Man) 0.0 K/mm3 12/14/18 04:05 Monocytes # (Manual) 7.7 K/mm3 (0.0-0.8) H 12/14/18 04:05 Eosinophils # (Manual) 0.0 K/mm3 (0.0-0.4) 12/14/18 04:05 Basophils # (Manual) 0.0 K/mm3 (0.0-0.1) 12/14/18 04:05 Metamyelocytes # 0.0 K/mm3 12/14/18 04:05 Myelocytes # 0.0 K/mm3 12/14/18 04:05 Promyelocytes # 0.0 K/mm3 12/14/18 04:05 Blast Cells # 0.0 K/mm3 12/14/18 04:05 WBC Morphology Not Reportable 12/14/18 04:05 Hypersegmented Neuts Not Reportable 12/14/18 04:05 Hyposegmented Neuts Not Reportable 12/14/18 04:05 Hypogranular Neuts Not Reportable 12/14/18 04:05 Smudge Cells Not Reportable 12/14/18 04:05 Toxic Granulation Not Reportable 12/14/18 04:05 Toxic Vacuolation Not Reportable 12/14/18 04:05 Dohle Bodies Not Reportable 12/14/18 04:05 Pelger-Huet Anomaly Not Reportable 12/14/18 04:05 Willow Rods Not Reportable 12/14/18 04:05 Platelet Estimate Consistent w auto 12/14/18 04:05 Clumped Platelets Not Reportable 12/14/18 04:05 Plt Clumps, EDTA Not Reportable 12/14/18 04:05 Large Platelets Not Reportable 12/14/18 04:05 Giant Platelets Not Reportable 12/14/18 04:05 Platelet Satelliting Not Reportable 12/14/18 04:05 Plt Morphology Comment Not Reportable 12/14/18 04:05 RBC Morphology Not Reportable 12/14/18 04:05 Dimorphic RBCs Not Reportable 12/14/18 04:05 Polychromasia Not Reportable 12/14/18 04:05 Hypochromasia Not Reportable 12/14/18 04:05 Poikilocytosis Not Reportable 12/14/18 04:05 Anisocytosis Not Reportable 12/14/18 04:05 Microcytosis Not Reportable 12/14/18 04:05 Macrocytosis Not Reportable 12/14/18 04:05 Spherocytes Not Reportable 12/14/18 04:05 Pappenheimer Bodies Not Reportable 12/14/18 04:05 Sickle Cells Not Reportable 12/14/18 04:05 Target Cells 1+ 12/14/18 04:05 Tear Drop Cells Not Reportable 12/14/18 04:05 Ovalocytes Not Reportable 12/14/18 04:05 Helmet Cells Not Reportable 12/14/18 04:05 [place] Bodies Not Reportable 12/14/18 04:05 [place] Rings Not Reportable 12/14/18 04:05 Rene Cells Not Reportable 12/14/18 04:05 Bite Cells Not Reportable 12/14/18 04:05 Crenated Cell Not Reportable 12/14/18 04:05 Elliptocytes Not Reportable 12/14/18 04:05 Acanthocytes (Spur) Not Reportable 12/14/18 04:05 Rouleaux Not Reportable 12/14/18 04:05 Hemoglobin C Crystals Not Reportable 12/14/18 04:05 Schistocytes Few 12/14/18 04:05 Malaria parasites Not Reportable 12/14/18 04:05 ESR > 140.0 mm/Hr (0-20) 12/13/18 17:46 Terry Bodies Not Reportable 12/14/18 04:05 Hem Pathologist Commnt Sent to pathology 12/14/18 04:05 Sodium 133 mmol/L (137-145) L 12/14/18 04:05 Potassium 4.5 mmol/L (3.6-5.0) 12/14/18 04:05 Chloride 98.4 mmol/L (98-107) 12/14/18 04:05 Carbon Dioxide 21 mmol/L (22-30) L 12/14/18 04:05 Anion Gap 18 mmol/L 12/14/18 04:05 BUN 12 mg/dL (9-20) 12/14/18 04:05 Creatinine 0.7 mg/dL (0.8-1.5) L 12/14/18 04:05 Estimated GFR > 60 ml/min 12/14/18 04:05 BUN/Creatinine Ratio 17 % 12/14/18 04:05 Glucose 98 mg/dL (75-100) 12/14/18 04:05 POC Glucose 141 (70-105) H 12/13/18 15:00 Lactic Acid 0.60 mmol/L (0.7-2.0) L 12/13/18 21:28 Calcium 9.0 mg/dL (8.4-10.2) 12/14/18 04:05 Magnesium 2.10 mg/dL (1.7-2.3) 12/13/18 17:46 Total Bilirubin 0.50 mg/dL (0.1-1.2) 12/14/18 04:05 Direct Bilirubin 0.3 mg/dL (0-0.2) H 12/13/18 16:36 Indirect Bilirubin 0.3 mg/dL 12/13/18 16:36 AST 68 units/L (5-40) H 12/14/18 04:05 ALT 102 units/L (7-56) H 12/14/18 04:05 Alkaline Phosphatase 131 units/L (35-129) H 12/14/18 04:05 Total Creatine Kinase 142 units/L (55-170) 12/13/18 17:46 C-Reactive Protein 25.30 mg/dL (0.00-1.30) H 12/13/18 17:46 Total Protein 8.2 g/dL (6.3-8.2) 12/14/18 04:05 Albumin 3.3 g/dL (3.9-5) L 12/14/18 04:05 Albumin/Globulin Ratio 0.7 % 12/14/18 04:05 Urine Color Yellow (Yellow) 12/13/18 Unknown Urine Turbidity Slightly-cloudy (Clear) 12/13/18 Unknown Urine pH 5.0 (5.0-7.0) 12/13/18 Unknown Ur Specific [place] 1.014 (1.003-1.030) 12/13/18 Unknown Urine Protein <15 mg/dl mg/dL (Negative) 12/13/18 Unknown Urine Glucose (UA) Neg mg/dL (Negative) 12/13/18 Unknown Urine Ketones Tr mg/dL (Negative) 12/13/18 Unknown Urine Blood Mod (Negative) 12/13/18 Unknown Urine Nitrite Neg (Negative) 12/13/18 Unknown Urine Bilirubin Neg (Negative) 12/13/18 Unknown Urine Urobilinogen < 2.0 mg/dL (<2.0) 12/13/18 Unknown Ur Leukocyte Esterase Lg (Negative) 12/13/18 Unknown Urine WBC (Auto) 52.0 /HPF (0.0-6.0) H 12/13/18 Unknown Urine RBC (Auto) 20.0 /HPF (0.0-6.0) 12/13/18 Unknown U Epithel Cells (Auto) < 1.0 /HPF (0-13.0) 12/13/18 Unknown Urine Bacteria (Auto) 2+ /HPF (Negative) 12/13/18 Unknown Urine Mucus Few /HPF 12/13/18 Unknown Urine Yeast (Budding) 1+ /HPF 12/13/18 Unknown Blood Type B POSITIVE 12/13/18 15:05 Antibody Screen Negative 12/13/18 15:05 Active Medications - Current Medications Current Medications: Generic Name Dose Route Start Last Admin Trade Name Freq PRN Reason Stop Dose Admin Acetaminophen 650 mg 12/13/18 18:19 Tylenol PO Q4H PRN Pain MILD(1-3)/Fever >100.5/[place] Albuterol 2.5 mg 12/13/18 18:19 Proventil IH Q4HRT PRN Shortness Of Breath Amlodipine Besylate 10 mg 12/14/18 10:00 Amlodipine PO DAILY STEVE Arformoterol Tartrate 15 mcg 12/13/18 20:00 12/13/18 20:09 Brovana Nebu IH 15 mcg Q12HRT STEVE Administration Aspirin 81 mg 12/14/18 10:00 Halfprin Ec PO QDAY STEVE Budesonide 0.5 mg 12/13/18 20:00 12/13/18 20:09 Pulmicort IH 0.5 mg Q12HRT STEVE Administration Vancomycin HCl 1 gm in 250 mls @ 166.667 mls/hr 12/14/18 07:00 Vancomycin/Ns 1 Gm/250 Ml IV Q12H [facility] Ceftriaxone Sodium 2 gm in 100 mls @ 200 mls/hr 12/14/18 10:00 Rocephin/Ns 2 Gm/100 Ml IV DAILY [facility] Protocol Morphine Sulfate 2 mg 12/13/18 19:27 Morphine IV Q4H PRN Pain, Moderate (4-6) Ondansetron HCl 4 mg 12/13/18 18:19 Zofran IV Q8H PRN Nausea And Vomiting Oxycodone/Acetaminophen 1 tab 12/13/18 19:27 12/13/18 20:42 Percocet 5/325 PO 1 tab Q6H PRN Administration Pain, Moderate (4-6) Sodium Chloride 10 ml 12/13/18 22:00 12/14/18 05:01 Sodium Chloride Flush Syringe 10 Ml IV 10 ml BID STEVE Administration Sodium Chloride 10 ml 12/13/18 18:19 Sodium Chloride Flush Syringe 10 Ml IV PRN PRN LINE FLUSH
[2018-12-14] MEDS: BUDESONIDE 0.5 MG/2 ML NEBU IH SCH ×2 (08:23→19:34)
[2018-12-14] MEDS: ARFORMOTEROL 15 MCG/2 ML NEBU IH SCH ×2 (08:24→19:34)
[2018-12-14] MEDS: COLCHICINE 0.6 MG CAP PO SCH (09:47)
[2018-12-14] MEDS: ACETAMINOPHEN 325 MG TAB PO PRN ×2 (09:47→14:29)
[2018-12-14] MEDS: ASPIRIN EC 81 MG TAB PO SCH (09:47)
[2018-12-14] MEDS: VANCOMYCIN/NS 1 GM/250 ML 1 GM/250 ML BAG IV SCH ×2 (09:50→21:45)
[2018-12-14] MEDS: amLODIPine 10 MG TAB PO SCH (09:51)
[2018-12-14] MEDS ORDERED: ASPIRIN 81 MG PO SCH (10:00)
[2018-12-14] MEDS ORDERED: NON-FORMULARY EACH (Amlodipine Besylate 10 MG) PO SCH (10:00)
[2018-12-14] MEDS: allopurinoL 100 MG TAB PO SCH (10:07)
--- NOTE | 2018-12-14 12:00 | Consultation ---
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 he also complains of L wrist and elbow pain which began 2 days [employer]. The pain limits his ROM and he notes it is quite severe. he otherwise denies fevers, sweats, chills. He was recently treated at [facility] for septic arthritis of the same elbow with 5 weeks of IV antibiotics, with vancomycin and ceftriaxone. He was also recently treated for Gout while at [facility]. he reports the elbow pain is new onset and not persistent from his previous admission. Afebrile since admission with a white count now of 17. Currently receiving vancomycin and ceftriaxone. Blood and urine cultures are no growth to date. Imaging personally reviewed: Wrist XR: retained metallic shrapnel piece elbow XR: no acute infective focus Review of Systems: Bold if positive, otherwise negative General: fevers, chills, rigors HEENT: visual disturbance, diplopia, eye pain Respiratory: cough, sputum, hemoptysis, shortness of breath Cardiovascular: chest pain, syncope Gastrointestinal: nausea, vomiting, diarrhea, abdominal pain Genitourinary: dysuria, hematuria, flank pain Musculoskeletal: neck pain, back pain, joint pain, edema Neurologic: headaches, seizures Hematologic: easy bruising or bleeding Endocrine: night sweats, acute weight loss Skin: rash, jaundice, redness Psychiatric: suicidal, homicidal ideation Past History Past Medical History: other (see hpi) Past Surgical History: No surgical history, Other (reviewed) Social history: single. denies: smoking, alcohol abuse, prescription drug abuse Family history: no significant family history (reviewed) Medications and Allergies Allergies Allergy/AdvReac Type Severity Reaction Status Date / Time No Known Allergies Allergy Verified 12/13/18 15:00 Home Medications Medication Instructions Recorded Confirmed Last Taken Type Advair Diskus 250-50 mcg 50 mcg INHALATION BID 12/13/18 12/13/18 Unknown History Amlodipine Besylate 10 mg PO DAILY 12/13/18 12/13/18 Unknown History Aspirin EC DR 81 mg PO DAILY 12/13/18 12/13/18 Unknown History Cefdinir 300 mg PO BID 12/13/18 12/13/18 Unknown History Active Meds: Active Medications Acetaminophen (Tylenol) 650 mg PO Q4H PRN PRN Reason: Pain MILD(1-3)/Fever >100.5/[place] Last Admin: 12/14/18 09:47 Dose: 650 mg Documented by: Albuterol (Proventil) 2.5 mg IH Q4HRT PRN PRN Reason: Shortness Of Breath Allopurinol (Zyloprim) 100 mg PO QDAY [facility] Last Admin: 12/14/18 10:07 Dose: 100 mg Documented by: Amlodipine Besylate (Amlodipine) 10 mg PO DAILY [facility] Last Admin: 12/14/18 09:51 Dose: 10 mg Documented by: Arformoterol Tartrate (Brovana Nebu) 15 mcg IH Q12HRT [facility] Last Admin: 12/14/18 08:24 Dose: 15 mcg Documented by: Aspirin (Halfprin Ec) 81 mg PO QDAY [facility] Last Admin: 12/14/18 09:47 Dose: 81 mg Documented by: Budesonide (Pulmicort) 0.5 mg IH Q12HRT [facility] Last Admin: 12/14/18 08:23 Dose: 0.5 mg Documented by: Colchicine (Colchicine) 0.6 mg PO QDAY [facility] Last Admin: 12/14/18 09:47 Dose: 0.6 mg Documented by: Ceftriaxone Sodium (Rocephin/Ns 2 Gm/100 Ml) 2 gm in 100 mls @ 200 mls/hr IV DAILY [facility]; Protocol Vancomycin HCl (Vancomycin/Ns 1 Gm/250 Ml) 1 gm in 250 mls @ 166.667 mls/hr IV Q12HR [facility] Last Admin: 12/14/18 09:50 Dose: 166.667 mls/hr Documented by: Morphine Sulfate (Morphine) 2 mg IV Q4H PRN PRN Reason: Pain, Moderate (4-6) Ondansetron HCl (Zofran) 4 mg IV Q8H PRN PRN Reason: Nausea And Vomiting Oxycodone/Acetaminophen (Percocet 5/325) 1 tab PO Q6H PRN PRN Reason: Pain, Moderate (4-6) Last Admin: 12/13/18 20:42 Dose: 1 tab Documented by: Sodium Chloride (Sodium Chloride Flush Syringe 10 Ml) 10 ml IV BID [facility] Last Admin: 12/14/18 09:52 Dose: 10 ml Documented by: Sodium Chloride (Sodium Chloride Flush Syringe 10 Ml) 10 ml IV PRN PRN PRN Reason: LINE FLUSH Physical Examination - Physical Exam Narrative exam: Constitutional: Alert, cooperative. No acute distress Head, Ears, Nose: Normocephalic, atraumatic. External ears, nose normal Eyes: Conjunctivae/corneas clear. No icterus. No ptosis. Neck: Supple, no meningeal signs Oral: dentition fair, no thrush Cardiovascular: S1, S2 normal. Respiratory: Good air entry, clear to auscultation bilaterally GI: Soft, non-tender; bowel sounds normal. No peritoneal signs. Musculoskeletal: No pedal edema, no cyanosis. R wrist and elbow tender, decreased ROM, red Skin: No rash or abscess Hem/Lymphatic: No palpable cervical or supraclavicular nodes. No lymphangitis Psych: Mood ok. Affect normal Neurological: Awake, alert, oriented. No gross abnormality - Constitutional Vitals: Vital Signs Temp Pulse Resp BP Pulse Ox 98.0 F 84 18 143/71 100 12/14/18 07:07 12/14/18 09:51 12/14/18 08:24 12/14/18 09:51 12/14/18 08:23 Temperature -Last 24 Hours Temperature 98.0 F Temperature 97.3 F Temperature 100.2 F Temperature 98.6 F Results - Labs CBC & Chem 7: 12/14/18 04:05 12/14/18 04:05 Labs: Abnormal lab results 12/13/18 12/13/18 12/13/18 Range/Units 15:00 15:05 16:36 WBC 24.6 H (4.5-11.0) K/mm3 RBC 3.26 L (3.65-5.03) M/mm3 Hgb 8.6 L (11.8-15.2) gm/dl Hct 27.7 L (35.5-45.6) % MCH 26 L (28-32) pg MCHC 31 L (32-34) % RDW 22.9 H (13.2-15.2) % Plt Count 106 L (140-440) K/mm3 Seg Neuts % (Manual) 34.0 L (40.0-70.0) % Lymphocytes % (Manual) (13.4-35.0) % Monocytes % (Manual) 49.0 H (0.0-7.3) % Seg Neutrophils # Man 8.4 H (1.8-7.7) K/mm3 Monocytes # (Manual) 12.1 H (0.0-0.8) K/mm3 Sodium (137-145) mmol/L Chloride (98-107) mmol/L Carbon Dioxide (22-30) mmol/L Creatinine (0.8-1.5) mg/dL Glucose (75-100) mg/dL POC Glucose 141 H (70-105) Lactic Acid (0.7-2.0) mmol/L Direct Bilirubin 0.3 H (0-0.2) mg/dL AST 99 H (5-40) units/L ALT 112 H (7-56) units/L Alkaline Phosphatase 158 H (35-129) units/L C-Reactive Protein (0.00-1.30) mg/dL Albumin 3.6 L (3.9-5) g/dL Urine WBC (Auto) (0.0-6.0) /HPF 12/13/18 12/13/18 12/13/18 Range/Units 16:36 17:46 21:28 WBC (4.5-11.0) K/mm3 RBC (3.65-5.03) M/mm3 Hgb (11.8-15.2) gm/dl Hct (35.5-45.6) % MCH (28-32) pg MCHC (32-34) % RDW (13.2-15.2) % Plt Count (140-440) K/mm3 Seg Neuts % (Manual) (40.0-70.0) % Lymphocytes % (Manual) (13.4-35.0) % Monocytes % (Manual) (0.0-7.3) % Seg Neutrophils # Man (1.8-7.7) K/mm3 Monocytes # (Manual) (0.0-0.8) K/mm3 Sodium 131 L (137-145) mmol/L Chloride 95.1 L (98-107) mmol/L Carbon Dioxide 19 L (22-30) mmol/L Creatinine (0.8-1.5) mg/dL Glucose 130 H (75-100) mg/dL POC Glucose (70-105) Lactic Acid 0.60 L (0.7-2.0) mmol/L Direct Bilirubin (0-0.2) mg/dL AST 99 H (5-40) units/L ALT 111 H (7-56) units/L Alkaline Phosphatase 156 H (35-129) units/L C-Reactive Protein 25.30 H (0.00-1.30) mg/dL Albumin 3.7 L (3.9-5) g/dL Urine WBC (Auto) (0.0-6.0) /HPF 12/13/18 12/14/18 12/14/18 Range/Units Unknown 04:05 04:05 WBC 17.6 H (4.5-11.0) K/mm3 RBC 3.12 L (3.65-5.03) M/mm3 Hgb 8.2 L (11.8-15.2) gm/dl Hct 26.4 L (35.5-45.6) % MCH 26 L (28-32) pg MCHC 31 L (32-34) % RDW 22.2 H (13.2-15.2) % Plt Count 85 L (140-440) K/mm3 Seg Neuts % (Manual) (40.0-70.0) % Lymphocytes % (Manual) 9.0 L (13.4-35.0) % Monocytes % (Manual) 44.0 H (0.0-7.3) % Seg Neutrophils # Man 8.3 H (1.8-7.7) K/mm3 Monocytes # (Manual) 7.7 H (0.0-0.8) K/mm3 Sodium 133 L (137-145) mmol/L Chloride (98-107) mmol/L Carbon Dioxide 21 L (22-30) mmol/L Creatinine 0.7 L (0.8-1.5) mg/dL Glucose (75-100) mg/dL POC Glucose (70-105) Lactic Acid (0.7-2.0) mmol/L Direct Bilirubin (0-0.2) mg/dL AST 68 H (5-40) units/L ALT 102 H (7-56) units/L Alkaline Phosphatase 131 H (35-129) units/L C-Reactive Protein (0.00-1.30) mg/dL Albumin 3.3 L (3.9-5) g/dL Urine WBC (Auto) 52.0 H (0.0-6.0) /HPF Assessment and Plan Cultures: 12/13 blood culture - NGTD 12/13 urine culture - NGTD A/P: 77 yo M PMHx debility, 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 1. Sepsis - present on admission with leukocytosis and tachycardia. Had low gra de temps but no fevers documented. Likely secondary to septic arthritis. 2. Septic arthritis - pending ortho eval and possible joint tap. MRI not possible due to metallic shrapnel fragment. Would continue vancomycin and ceftriaxone for now. If tap performed please send for culture. Leukocytosis may not be reliable indicator given cancer. Possibly due to gout, arthrocentesis would be beneficial. 3. 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 COPD Recs: - continue vancomycin dosed per pharmacy, goal trough 15-20 - continue ceftriaxone 2g q24h - follow up ortho consult. If arthrocentesis performed please send for analysis, culture. Thank you for the consult, we will continue to follow. MD [facility] ([facility] M: [phone] O: [phone] F: [phone]
[2018-12-14] MEDS: cefTRIAXone/NS 2 GM/100 ML 2 GM/100 ML BAG IV SCH (12:34)
[2018-12-14] MEDS: MORPHINE 2 MG/1 ML INJ IV PRN (19:43)
[2018-12-15] MEDS: oxyCODONE /ACETAMINOPHEN 5-325MG TAB PO PRN ×2 (01:03→11:02)
[2018-12-15 05:24] LABS: Hemoglobin 7.5 gm/dl (11.8-15.2); Mean Corpuscular HGB Conc 32 % (32-34); Mean Corpuscular Volume 84 fl (84-94); Red Blood Count 2.87 M/mm3 (3.65-5.03)
[2018-12-15 05:27] LABS: Platelet Count 80 K/mm3 (140-440); Red Cell Distribution Width 22.1 % (13.2-15.2)
[2018-12-15 05:44] LABS: Alanine Aminotransferase 100 units/L (7-56); Albumin 2.9 g/dL (3.9-5); BUN/Creatinine Ratio 15; Blood Urea Nitrogen 9 mg/dL (9-20); Calcium 8.8 mg/dL (8.4-10.2); Hemolysis Index 15
[2018-12-15] MEDS: ARFORMOTEROL 15 MCG/2 ML NEBU IH SCH ×2 (07:29→20:41)
[2018-12-15] MEDS: BUDESONIDE 0.5 MG/2 ML NEBU IH SCH ×2 (07:29→20:41)
[2018-12-15] MEDS: amLODIPine 10 MG TAB PO SCH (09:00)
[2018-12-15] MEDS: cefTRIAXone/NS 2 GM/100 ML 2 GM/100 ML BAG IV SCH (11:00)
[2018-12-15] MEDS: COLCHICINE 0.6 MG CAP PO SCH (11:00)
[2018-12-15] MEDS: ASPIRIN EC 81 MG TAB PO SCH (11:00)
[2018-12-15] MEDS: allopurinoL 100 MG TAB PO SCH (11:00)
--- NOTE | 2018-12-15 11:44 | Progress Note ---
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 Pt states that he has experienced generalized weakness over the past 1 week with worsening symptoms over the same time frame. Pt also reports Left wrist and elbow pain with worsening symptoms over the past 2 days. Pt states that pain is 8/10, and limits his ability to use his left arm. Pain is constant, worsened with movement, relieved with rest. Pt transported to [facility] via private vehicle. Pt seen and evaluated in ED and found to have SIRS, Left Elbow pain, UTI, Acidosis, and Hyponatremia. Pt admitted to TINY unit. Ortho surgery consulted in ED. Pt denies fever, chills, CP, Palpitations, NVD, Skin rash, productive cough, or recent ill contacts. * Pt treated for Septic Arthritis at [facility]. Pt treated with 5 week course of IV antibiotic therapy October 02 through October 30 for septic arthritis of left wrist, status post I and D; reportedly status post 5 weeks of ceftriaxone and vancomycin completed on October 30. No prior ad mission for review. All listed mediation reconciled at time of admission. * also recently hospitalized at [facility] 11/15/2018 2 11/24/2018 for recurrent left wrist pain, treated with colchicine and allopurinol. * Patient has reportedly followed up with an outpatient physician, Dr. Whitmore for potential cancer treatment, however, therapy has been withheld secondary to concerns regarding side effects profile. * A bone marrow biopsy from August 2018 showed worsening platelet counts, anemia, conversion to amL. 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 His enclose paperwork does not appear to indicate other outpatient antibiotics. - Patient Problems (1) SEPSIS -POA Current Visit: Yes Status: Acute Plan to address problem: IV antibiotic therapy, CBC, CMP, Urinalysis, chest x ray, Wbc improving Id consulted (2) Acidosis Current Visit: Yes Status: Acute Plan to address problem: IVF resuscitation therapy, monitor uop q shift, supportive care (3) UTI (urinary tract infection) Current Visit: Yes Status: Acute Qualifiers: Encounter type: initial encounter Plan to address problem: IV antibiotic therapy, CBC, CMP, Culture pending (4) Hyponatremia syndrome Current Visit: Yes Status: Acute Plan to address problem: IVF resuscitation therapy,repeat bmp (5) Polyarthritis Current Visit: Yes Status: Acute Plan to address problem: Ortho consulted in ED, ID consult ?recurrent septic arthritis Recently treated for gout with colchicine and allopurinol (6) 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 (7) Debility Current Visit: Yes Status: Acute Plan to address problem: PT consulted, supportive care. (8) Elevated LFTS Will monitor. No abdominal pain (9) Leukocytosis Likely secondary to sepsis vs AMS (10)Thrombocytopenia SCD for dvt prophy Monitor closely (11) DVT prophylaxis Current Visit: Yes Status: Acute Plan to address problem: SCD to BLE while in bed, History Interval history: Patient seen and examined, still complains of right upper ext pain 7/10 in intensity. Requiring assistance with Nutrition. Hospitalist Physical - Physical exam Narrative exam: VITAL SIGNS: Reviewed. GENERAL: The patient appears normally developed, chronically ill appearing, Vital signs as documented. HEAD: No signs of head trauma. EYES: Pupils are equal. Extraocular motions intact. EARS: Hearing grossly intact. MOUTH: Oropharynx is normal. NECK: No adenopathy, no JVD. CHEST: Chest with clear breath sounds bilaterally. No wheezes, rales, or rhonchi. CARDIAC: Regular rate and rhythm. S1 and S2, without murmurs, gallops, or rubs. VASCULAR: No Edema. Peripheral pulses normal and equal in all extremities. ABDOMEN: Soft, non tender and non distended. No rebound or guarding, and no masses palpated. Bowel Sounds normal. MUSCULOSKELETAL: Left lower ext with Decreased ROM, warm to touch, red, otherwise other joints with Good range of motion of all major joints. Extremities without clubbing, cyanosis or edema. NEUROLOGIC EXAM: Alert and oriented x 3 No focal sensory or strength deficits. Speech normal. Follows commands. PSYCHIATRIC: Mood normal. SKIN: denial exam as documented in skin assessment - Constitutional Vitals: Temp Pulse Resp BP Pulse Ox 97.9 F 94 H 20 113/65 98 12/15/18 08:19 12/15/18 08:19 12/15/18 08:19 12/15/18 08:19 12/15/18 08:19 General appearance: Present: mild distress Results - Labs CBC & Chem 7: 12/15/18 05:01 12/15/18 05:01 Labs: Laboratory Last Values WBC 15.5 K/mm3 (4.5-11.0) H 12/15/18 05:01 RBC 2.87 M/mm3 (3.65-5.03) L 12/15/18 05:01 Hgb 7.5 gm/dl (11.8-15.2) L 12/15/18 05:01 Hct 24.0 % (35.5-45.6) L 12/15/18 05:01 MCV 84 fl (84-94) 12/15/18 05:01 MCH 26 pg (28-32) L 12/15/18 05:01 MCHC 32 % (32-34) 12/15/18 05:01 RDW 22.1 % (13.2-15.2) H 12/15/18 05:01 Plt Count 80 K/mm3 (140-440) L 12/15/18 05:01 [place] % (Auto) Certified Endoscopy Technician 12/14/18 04:05 Add Manual Diff Complete 12/14/18 04:05 Total Counted 100 12/14/18 04:05 Seg Neutrophils % Certified Endoscopy Technician 12/13/18 15:05 Seg Neuts % (Manual) 47.0 % (40.0-70.0) 12/14/18 04:05 Band Neutrophils % 0 % 12/14/18 04:05 Lymphocytes % (Manual) 9.0 % (13.4-35.0) L 12/14/18 04:05 Reactive Lymphs % (Man) 0 % 12/14/18 04:05 Monocytes % (Manual) 44.0 % (0.0-7.3) H 12/14/18 04:05 Eosinophils % (Manual) 0 % (0.0-4.3) 12/14/18 04:05 Basophils % (Manual) 0 % (0.0-1.8) 12/14/18 04:05 Metamyelocytes % 0 % 12/14/18 04:05 Myelocytes % 0 % 12/14/18 04:05 Promyelocytes % 0 % 12/14/18 04:05 Blast Cells % 0 % 12/14/18 04:05 Nucleated RBC % Not Reportable 12/14/18 04:05 Seg Neutrophils # Man 8.3 K/mm3 (1.8-7.7) H 12/14/18 04:05 Band Neutrophils # 0.0 K/mm3 12/14/18 04:05 Lymphocytes # (Manual) 1.6 K/mm3 (1.2-5.4) 12/14/18 04:05 Abs React Lymphs (Man) 0.0 K/mm3 12/14/18 04:05 Monocytes # (Manual) 7.7 K/mm3 (0.0-0.8) H 12/14/18 04:05 Eosinophils # (Manual) 0.0 K/mm3 (0.0-0.4) 12/14/18 04:05 Basophils # (Manual) 0.0 K/mm3 (0.0-0.1) 12/14/18 04:05 Metamyelocytes # 0.0 K/mm3 12/14/18 04:05 Myelocytes # 0.0 K/mm3 12/14/18 04:05 Promyelocytes # 0.0 K/mm3 12/14/18 04:05 Blast Cells # 0.0 K/mm3 12/14/18 04:05 Pathologist Review 12/13/18 15:05 WBC Morphology Not Reportable 12/14/18 04:05 Hypersegmented Neuts Not Reportable 12/14/18 04:05 Hyposegmented Neuts Not Reportable 12/14/18 04:05 Hypogranular Neuts Not Reportable 12/14/18 04:05 Smudge Cells Not Reportable 12/14/18 04:05 Toxic Granulation Not Reportable 12/14/18 04:05 Toxic Vacuolation Not Reportable 12/14/18 04:05 Dohle Bodies Not Reportable 12/14/18 04:05 Pelger-Huet Anomaly Not Reportable 12/14/18 04:05 Willow Rods Not Reportable 12/14/18 04:05 Platelet Estimate Consistent w auto 12/14/18 04:05 Clumped Platelets Not Reportable 12/14/18 04:05 Plt Clumps, EDTA Not Reportable 12/14/18 04:05 Large Platelets Not Reportable 12/14/18 04:05 Giant Platelets Not Reportable 12/14/18 04:05 Platelet Satelliting Not Reportable 12/14/18 04:05 Plt Morphology Comment Not Reportable 12/14/18 04:05 RBC Morphology Not Reportable 12/14/18 04:05 Dimorphic RBCs Not Reportable 12/14/18 04:05 Polychromasia Not Reportable 12/14/18 04:05 Hypochromasia Not Reportable 12/14/18 04:05 Poikilocytosis Not Reportable 12/14/18 04:05 Anisocytosis Not Reportable 12/14/18 04:05 Microcytosis Not Reportable 12/14/18 04:05 Macrocytosis Not Reportable 12/14/18 04:05 Spherocytes Not Reportable 12/14/18 04:05 Pappenheimer Bodies Not Reportable 12/14/18 04:05 Sickle Cells Not Reportable 12/14/18 04:05 Target Cells 1+ 12/14/18 04:05 Tear Drop Cells Not Reportable 12/14/18 04:05 Ovalocytes Not Reportable 12/14/18 04:05 Helmet Cells Not Reportable 12/14/18 04:05 [place] Bodies Not Reportable 12/14/18 04:05 [place] Rings Not Reportable 12/14/18 04:05 Rene Cells Not Reportable 12/14/18 04:05 Bite Cells Not Reportable 12/14/18 04:05 Crenated Cell Not Reportable 12/14/18 04:05 Elliptocytes Not Reportable 12/14/18 04:05 Acanthocytes (Spur) Not Reportable 12/14/18 04:05 Rouleaux Not Reportable 12/14/18 04:05 Hemoglobin C Crystals Not Reportable 12/14/18 04:05 Schistocytes Few 12/14/18 04:05 Malaria parasites Not Reportable 12/14/18 04:05 ESR > 140.0 mm/Hr (0-20) 12/13/18 17:46 Terry Bodies Not Reportable 12/14/18 04:05 Hem Pathologist Commnt Sent to pathology 12/14/18 04:05 Sodium 132 mmol/L (137-145) L 12/15/18 05:01 Potassium 4.4 mmol/L (3.6-5.0) 12/15/18 05:01 Chloride 99.6 mmol/L (98-107) 12/15/18 05:01 Carbon Dioxide 19 mmol/L (22-30) L 12/15/18 05:01 Anion Gap 18 mmol/L 12/15/18 05:01 BUN 9 mg/dL (9-20) 12/15/18 05:01 Creatinine 0.6 mg/dL (0.8-1.5) L 12/15/18 05:01 Estimated GFR > 60 ml/min 12/15/18 05:01 BUN/Creatinine Ratio 15 % 12/15/18 05:01 Glucose 96 mg/dL (75-100) 12/15/18 05:01 POC Glucose 118 (70-105) H 12/14/18 23:15 Lactic Acid 0.60 mmol/L (0.7-2.0) L 12/13/18 21:28 Uric Acid 5.1 mg/dL (3.5-7.6) 12/14/18 08:22 Calcium 8.8 mg/dL (8.4-10.2) 12/15/18 05:01 Magnesium 2.10 mg/dL (1.7-2.3) 12/13/18 17:46 Total Bilirubin 0.50 mg/dL (0.1-1.2) 12/15/18 05:01 Direct Bilirubin 0.3 mg/dL (0-0.2) H 12/13/18 16:36 Indirect Bilirubin 0.3 mg/dL 12/13/18 16:36 AST 64 units/L (5-40) H 12/15/18 05:01 ALT 100 units/L (7-56) H 12/15/18 05:01 Alkaline Phosphatase 133 units/L (35-129) H 12/15/18 05:01 Total Creatine Kinase 142 units/L (55-170) 12/13/18 17:46 C-Reactive Protein 25.30 mg/dL (0.00-1.30) H 12/13/18 17:46 Total Protein 8.1 g/dL (6.3-8.2) 12/15/18 05:01 Albumin 2.9 g/dL (3.9-5) L 12/15/18 05:01 Albumin/Globulin Ratio 0.6 % 12/15/18 05:01 Urine Color Yellow (Yellow) 12/13/18 Unknown Urine Turbidity Slightly-cloudy (Clear) 12/13/18 Unknown Urine pH 5.0 (5.0-7.0) 12/13/18 Unknown Ur Specific [place] 1.014 (1.003-1.030) 12/13/18 Unknown Urine Protein <15 mg/dl mg/dL (Negative) 12/13/18 Unknown Urine Glucose (UA) Neg mg/dL (Negative) 12/13/18 Unknown Urine Ketones Tr mg/dL (Negative) 12/13/18 Unknown Urine Blood Mod (Negative) 12/13/18 Unknown Urine Nitrite Neg (Negative) 12/13/18 Unknown Urine Bilirubin Neg (Negative) 12/13/18 Unknown Urine Urobilinogen < 2.0 mg/dL (<2.0) 12/13/18 Unknown Ur Leukocyte Esterase Lg (Negative) 12/13/18 Unknown Urine WBC (Auto) 52.0 /HPF (0.0-6.0) H 12/13/18 Unknown Urine RBC (Auto) 20.0 /HPF (0.0-6.0) 12/13/18 Unknown U Epithel Cells (Auto) < 1.0 /HPF (0-13.0) 12/13/18 Unknown Urine Bacteria (Auto) 2+ /HPF (Negative) 12/13/18 Unknown Urine Mucus Few /HPF 12/13/18 Unknown Urine Yeast (Budding) 1+ /HPF 12/13/18 Unknown Vancomycin Trough 12.4 ug/mL (5.0-20.0) 12/15/18 09:16 Blood Type B POSITIVE 12/13/18 15:05 Antibody Screen Negative 12/13/18 15:05 Active Medications - Current Medications Current Medications: Generic Name Dose Route Start Last Admin Trade Name Freq PRN Reason Stop Dose Admin Acetaminophen 650 mg 12/13/18 18:19 12/14/18 14:29 Tylenol PO 650 mg Q4H PRN Administration Pain MILD(1-3)/Fever >100.5/[place] Albuterol 2.5 mg 12/13/18 18:19 Proventil IH Q4HRT PRN Shortness Of Breath Allopurinol 100 mg 12/14/18 10:00 12/15/18 11:00 Zyloprim PO 100 mg QDAY STEVE Administration Amlodipine Besylate 10 mg 12/14/18 10:00 12/14/18 09:51 Amlodipine PO 10 mg DAILY STEVE Administration Arformoterol Tartrate 15 mcg 12/13/18 20:00 12/15/18 07:29 Brovana Nebu IH 15 mcg Q12HRT STEVE Administration Aspirin 81 mg 12/14/18 10:00 12/15/18 11:00 Halfprin Ec PO 81 mg QDAY STEVE Administration Budesonide 0.5 mg 12/13/18 20:00 12/15/18 07:29 Pulmicort IH 0.5 mg Q12HRT STEVE Administration Colchicine 0.6 mg 12/14/18 10:00 12/15/18 11:00 Colchicine PO 0.6 mg QDAY STEVE Administration Ceftriaxone Sodium 2 gm in 100 mls @ 200 mls/hr 12/14/18 10:00 12/15/18 11:00 Rocephin/Ns 2 Gm/100 Ml IV 200 mls/hr DAILY STEVE Administration Protocol Vancomycin HCl 1,250 mg/ 275 mls @ 166.667 mls/hr 12/15/18 11:30 Sodium Chloride IV Q12H STEVE Morphine Sulfate 2 mg 12/13/18 19:27 12/14/18 19:43 Morphine IV 2 mg Q4H PRN Administration Pain, Moderate (4-6) Ondansetron HCl 4 mg 12/13/18 18:19 Zofran IV Q8H PRN Nausea And Vomiting Oxycodone/Acetaminophen 1 tab 12/13/18 19:27 12/15/18 11:02 Percocet 5/325 PO 1 tab Q6H PRN Administration Pain, Moderate (4-6) Sodium Chloride 10 ml 12/13/18 22:00 12/15/18 11:08 Sodium Chloride Flush Syringe 10 Ml IV 10 ml BID STEVE Administration Sodium Chloride 10 ml 12/13/18 18:19 12/14/18 19:46 Sodium Chloride Flush Syringe 10 Ml IV 10 ml PRN PRN Administration LINE FLUSH
[2018-12-15] MEDS: VANCOMYCIN 1,250 MG in SODIUM CHLORIDE 0.9% 250ML 250 ML IV SCH ×2 (12:30→22:42)
[2018-12-16] MEDS: ACETAMINOPHEN 325 MG TAB PO PRN (00:23)
[2018-12-16] MEDS: oxyCODONE /ACETAMINOPHEN 5-325MG TAB PO PRN ×2 (03:19→17:11)
[2018-12-16 07:02] LABS: Hematocrit 23.9 % (35.5-45.6); Hemoglobin 7.4 gm/dl (11.8-15.2); Mean Corpuscular HGB Conc 31 % (32-34); Mean Corpuscular Volume 85 fl (84-94); Red Blood Count 2.82 M/mm3 (3.65-5.03)
[2018-12-16 07:04] LABS: Platelet Count 79 K/mm3 (140-440); Red Cell Distribution Width 21.9 % (13.2-15.2)
[2018-12-16 07:23] LABS: BUN/Creatinine Ratio 13; Blood Urea Nitrogen 9 mg/dL (9-20); Calcium 8.8 mg/dL (8.4-10.2); Hemolysis Index 2
--- NOTE | 2018-12-16 07:58 | Progress Note ---
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 Pt states that he has experienced generalized weakness over the past 1 week with worsening symptoms over the same time frame. Pt also reports Left wrist and elbow pain with worsening symptoms over the past 2 days. Pt states that pain is 8/10, and limits his ability to use his left arm. Pain is constant, worsened with movement, relieved with rest. Pt transported to [facility] via private vehicle. Pt seen and evaluated in ED and found to have SIRS, Left Elbow pain, UTI, Acidosis, and Hyponatremia. Pt admitted to TINY unit. Ortho surgery consulted in ED. Pt denies fever, chills, CP, Palpitations, NVD, Skin rash, productive cough, or recent ill contacts. * Pt treated for Septic Arthritis at [facility]. Pt treated with 5 week course of IV antibiotic therapy October 02 through October 30 for septic arthritis of left wrist, status post I and D; reportedly status post 5 weeks of ceftriaxone and vancomycin completed on October 30. No prior ad mission for review. All listed mediation reconciled at time of admission. * also recently hospitalized at [facility] 11/15/2018 2 11/24/2018 for recurrent left wrist pain, treated with colchicine and allopurinol. * Patient has reportedly followed up with an outpatient physician, Dr. Whitmore for potential cancer treatment, however, therapy has been withheld secondary to concerns regarding side effects profile. * A bone marrow biopsy from August 2018 showed worsening platelet counts, anemia, conversion to amL. 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 His enclose paperwork does not appear to indicate other outpatient antibiotics. Sepsis-POA Metabolic Acidosis ANEMIA of chronic illness Hyponatremia- Resolving Acute Cystitis Polyarthritis-?SEPTIC Arthritis CML-AML Debility Tranaminitis Constipation Leukocytosis Plan Continue abx Start on stool softner Uric acid is normal Complete abx Outpatient Hematology Monitor LFT ID input noted Await Ortho input Anticipate discharge in am if no further input from ortho DVT/GI prophy History Interval history: Patient seen and examined, stays some improvement in pain in the arm. Reported constipation this am Hospitalist Physical - Physical exam Narrative exam: VITAL SIGNS: Reviewed. GENERAL: The patient appears normally developed, chronically ill appearing, Vital signs as documented. HEAD: No signs of head trauma. EYES: Pupils are equal. Extraocular motions intact. EARS: Hearing grossly intact. MOUTH: Oropharynx is normal. NECK: No adenopathy, no JVD. CHEST: Chest with clear breath sounds bilaterally. No wheezes, rales, or rhonchi. CARDIAC: Regular rate and rhythm. S1 and S2, without murmurs, gallops, or rubs. VASCULAR: No Edema. Peripheral pulses normal and equal in all extremities. ABDOMEN: Soft, non tender and non distended. No rebound or guarding, and no masses palpated. Bowel Sounds normal. MUSCULOSKELETAL: Left lower ext with Decreased ROM,no further warmth, red, otherwise other joints with Good range of motion of all major joints. Extremities without clubbing, cyanosis or edema. NEUROLOGIC EXAM: Alert and oriented x 3 No focal sensory or strength deficits. Speech normal. Follows commands. PSYCHIATRIC: Mood normal. SKIN: denial exam as documented in skin assessment - Constitutional Vitals: Temp Pulse Resp BP Pulse Ox 97.5 F L 87 18 129/64 98 12/16/18 01:30 EST 12/16/18 01:30 EST 12/16/18 01:30 EST 12/16/18 01:30 EST 12/16/18 01:30 EST General appearance: Present: mild distress Results - Labs CBC & Chem 7: 12/16/18 06:01 12/16/18 06:01 Labs: Laboratory Last Values WBC 15.1 K/mm3 (4.5-11.0) H 12/16/18 06:01 RBC 2.82 M/mm3 (3.65-5.03) L 12/16/18 06:01 Hgb 7.4 gm/dl (11.8-15.2) L 12/16/18 06:01 Hct 23.9 % (35.5-45.6) L 12/16/18 06:01 MCV 85 fl (84-94) 12/16/18 06:01 MCH 26 pg (28-32) L 12/16/18 06:01 MCHC 31 % (32-34) L 12/16/18 06:01 RDW 21.9 % (13.2-15.2) H 12/16/18 06:01 Plt Count 79 K/mm3 (140-440) L 12/16/18 06:01 [place] % (Auto) Quality Management Nurse 12/14/18 04:05 Add Manual Diff Complete 12/14/18 04:05 Total Counted 100 12/14/18 04:05 Seg Neutrophils % Quality Management Nurse 12/13/18 15:05 Seg Neuts % (Manual) 47.0 % (40.0-70.0) 12/14/18 04:05 Band Neutrophils % 0 % 12/14/18 04:05 Lymphocytes % (Manual) 9.0 % (13.4-35.0) L 12/14/18 04:05 Reactive Lymphs % (Man) 0 % 12/14/18 04:05 Monocytes % (Manual) 44.0 % (0.0-7.3) H 12/14/18 04:05 Eosinophils % (Manual) 0 % (0.0-4.3) 12/14/18 04:05 Basophils % (Manual) 0 % (0.0-1.8) 12/14/18 04:05 Metamyelocytes % 0 % 12/14/18 04:05 Myelocytes % 0 % 12/14/18 04:05 Promyelocytes % 0 % 12/14/18 04:05 Blast Cells % 0 % 12/14/18 04:05 Nucleated RBC % Not Reportable 12/14/18 04:05 Seg Neutrophils # Man 8.3 K/mm3 (1.8-7.7) H 12/14/18 04:05 Band Neutrophils # 0.0 K/mm3 12/14/18 04:05 Lymphocytes # (Manual) 1.6 K/mm3 (1.2-5.4) 12/14/18 04:05 Abs React Lymphs (Man) 0.0 K/mm3 12/14/18 04:05 Monocytes # (Manual) 7.7 K/mm3 (0.0-0.8) H 12/14/18 04:05 Eosinophils # (Manual) 0.0 K/mm3 (0.0-0.4) 12/14/18 04:05 Basophils # (Manual) 0.0 K/mm3 (0.0-0.1) 12/14/18 04:05 Metamyelocytes # 0.0 K/mm3 12/14/18 04:05 Myelocytes # 0.0 K/mm3 12/14/18 04:05 Promyelocytes # 0.0 K/mm3 12/14/18 04:05 Blast Cells # 0.0 K/mm3 12/14/18 04:05 Pathologist Review 12/13/18 15:05 WBC Morphology Not Reportable 12/14/18 04:05 Hypersegmented Neuts Not Reportable 12/14/18 04:05 Hyposegmented Neuts Not Reportable 12/14/18 04:05 Hypogranular Neuts Not Reportable 12/14/18 04:05 Smudge Cells Not Reportable 12/14/18 04:05 Toxic Granulation Not Reportable 12/14/18 04:05 Toxic Vacuolation Not Reportable 12/14/18 04:05 Dohle Bodies Not Reportable 12/14/18 04:05 Pelger-Huet Anomaly Not Reportable 12/14/18 04:05 Willow Rods Not Reportable 12/14/18 04:05 Platelet Estimate Consistent w auto 12/14/18 04:05 Clumped Platelets Not Reportable 12/14/18 04:05 Plt Clumps, EDTA Not Reportable 12/14/18 04:05 Large Platelets Not Reportable 12/14/18 04:05 Giant Platelets Not Reportable 12/14/18 04:05 Platelet Satelliting Not Reportable 12/14/18 04:05 Plt Morphology Comment Not Reportable 12/14/18 04:05 RBC Morphology Not Reportable 12/14/18 04:05 Dimorphic RBCs Not Reportable 12/14/18 04:05 Polychromasia Not Reportable 12/14/18 04:05 Hypochromasia Not Reportable 12/14/18 04:05 Poikilocytosis Not Reportable 12/14/18 04:05 Anisocytosis Not Reportable 12/14/18 04:05 Microcytosis Not Reportable 12/14/18 04:05 Macrocytosis Not Reportable 12/14/18 04:05 Spherocytes Not Reportable 12/14/18 04:05 Pappenheimer Bodies Not Reportable 12/14/18 04:05 Sickle Cells Not Reportable 12/14/18 04:05 Target Cells 1+ 12/14/18 04:05 Tear Drop Cells Not Reportable 12/14/18 04:05 Ovalocytes Not Reportable 12/14/18 04:05 Helmet Cells Not Reportable 12/14/18 04:05 [place] Bodies Not Reportable 12/14/18 04:05 [place] Rings Not Reportable 12/14/18 04:05 Rene Cells Not Reportable 12/14/18 04:05 Bite Cells Not Reportable 12/14/18 04:05 Crenated Cell Not Reportable 12/14/18 04:05 Elliptocytes Not Reportable 12/14/18 04:05 Acanthocytes (Spur) Not Reportable 12/14/18 04:05 Rouleaux Not Reportable 12/14/18 04:05 Hemoglobin C Crystals Not Reportable 12/14/18 04:05 Schistocytes Few 12/14/18 04:05 Malaria parasites Not Reportable 12/14/18 04:05 ESR > 140.0 mm/Hr (0-20) 12/13/18 17:46 Terry Bodies Not Reportable 12/14/18 04:05 Hem Pathologist Commnt Sent to pathology 12/14/18 04:05 Sodium 134 mmol/L (137-145) L 12/16/18 06:01 Potassium 4.1 mmol/L (3.6-5.0) 12/16/18 06:01 Chloride 99.0 mmol/L (98-107) 12/16/18 06:01 Carbon Dioxide 20 mmol/L (22-30) L 12/16/18 06:01 Anion Gap 19 mmol/L 12/16/18 06:01 BUN 9 mg/dL (9-20) 12/16/18 06:01 Creatinine 0.7 mg/dL (0.8-1.5) L 12/16/18 06:01 Estimated GFR > 60 ml/min 12/16/18 06:01 BUN/Creatinine Ratio 13 % 12/16/18 06:01 Glucose 98 mg/dL (75-100) 12/16/18 06:01 POC Glucose 118 (70-105) H 12/14/18 23:15 Lactic Acid 0.60 mmol/L (0.7-2.0) L 12/13/18 21:28 Uric Acid 5.1 mg/dL (3.5-7.6) 12/14/18 08:22 Calcium 8.8 mg/dL (8.4-10.2) 12/16/18 06:01 Magnesium 2.10 mg/dL (1.7-2.3) 12/13/18 17:46 Total Bilirubin 0.50 mg/dL (0.1-1.2) 12/15/18 05:01 Direct Bilirubin 0.3 mg/dL (0-0.2) H 12/13/18 16:36 Indirect Bilirubin 0.3 mg/dL 12/13/18 16:36 AST 64 units/L (5-40) H 12/15/18 05:01 ALT 100 units/L (7-56) H 12/15/18 05:01 Alkaline Phosphatase 133 units/L (35-129) H 12/15/18 05:01 Total Creatine Kinase 142 units/L (55-170) 12/13/18 17:46 C-Reactive Protein 25.30 mg/dL (0.00-1.30) H 12/13/18 17:46 Total Protein 8.1 g/dL (6.3-8.2) 12/15/18 05:01 Albumin 2.9 g/dL (3.9-5) L 12/15/18 05:01 Albumin/Globulin Ratio 0.6 % 12/15/18 05:01 Urine Color Yellow (Yellow) 12/13/18 Unknown Urine Turbidity Slightly-cloudy (Clear) 12/13/18 Unknown Urine pH 5.0 (5.0-7.0) 12/13/18 Unknown Ur Specific [place] 1.014 (1.003-1.030) 12/13/18 Unknown Urine Protein <15 mg/dl mg/dL (Negative) 12/13/18 Unknown Urine Glucose (UA) Neg mg/dL (Negative) 12/13/18 Unknown Urine Ketones Tr mg/dL (Negative) 12/13/18 Unknown Urine Blood Mod (Negative) 12/13/18 Unknown Urine Nitrite Neg (Negative) 12/13/18 Unknown Urine Bilirubin Neg (Negative) 12/13/18 Unknown Urine Urobilinogen < 2.0 mg/dL (<2.0) 12/13/18 Unknown Ur Leukocyte Esterase Lg (Negative) 12/13/18 Unknown Urine WBC (Auto) 52.0 /HPF (0.0-6.0) H 12/13/18 Unknown Urine RBC (Auto) 20.0 /HPF (0.0-6.0) 12/13/18 Unknown U Epithel Cells (Auto) < 1.0 /HPF (0-13.0) 12/13/18 Unknown Urine Bacteria (Auto) 2+ /HPF (Negative) 12/13/18 Unknown Urine Mucus Few /HPF 12/13/18 Unknown Urine Yeast (Budding) 1+ /HPF 12/13/18 Unknown Vancomycin Trough 12.4 ug/mL (5.0-20.0) 12/15/18 09:16 Blood Type B POSITIVE 12/13/18 15:05 Antibody Screen Negative 12/13/18 15:05 Active Medications - Current Medications Current Medications: Generic Name Dose Route Start Last Admin Trade Name Freq PRN Reason Stop Dose Admin Acetaminophen 650 mg 12/13/18 18:19 12/16/18 00:23 Tylenol PO 650 mg Q4H PRN Administration Pain MILD(1-3)/Fever >100.5/[place] Albuterol 2.5 mg 12/13/18 18:19 Proventil IH Q4HRT PRN Shortness Of Breath Allopurinol 100 mg 12/14/18 10:00 12/15/18 11:00 Zyloprim PO 100 mg QDAY STEVE Administration Amlodipine Besylate 10 mg 12/14/18 10:00 12/15/18 09:00 Amlodipine PO Not Given DAILY STEVE Arformoterol Tartrate 15 mcg 12/13/18 20:00 12/15/18 20:41 Brovana Nebu IH 15 mcg Q12HRT STEVE Administration Aspirin 81 mg 12/14/18 10:00 12/15/18 11:00 Halfprin Ec PO 81 mg QDAY STEVE Administration Budesonide 0.5 mg 12/13/18 20:00 12/15/18 20:41 Pulmicort IH 0.5 mg Q12HRT STEVE Administration Colchicine 0.6 mg 12/14/18 10:00 12/15/18 11:00 Colchicine PO 0.6 mg QDAY STEVE Administration Docusate Sodium 100 mg 12/16/18 10:00 Colace PO BID STEVE Ceftriaxone Sodium 2 gm in 100 mls @ 200 mls/hr 12/14/18 10:00 12/15/18 11:00 Rocephin/Ns 2 Gm/100 Ml IV 200 mls/hr DAILY STEVE Administration Protocol Vancomycin HCl 1,250 mg/ 275 mls @ 166.667 mls/hr 12/15/18 11:30 12/15/18 22:42 Sodium Chloride IV 166.667 mls/hr Q12H STEVE Administration Magnesium Hydroxide 30 ml 12/16/18 07:54 Milk Of Magnesia PO Q4H PRN Constipation Morphine Sulfate 2 mg 12/13/18 19:27 12/14/18 19:43 Morphine IV 2 mg Q4H PRN Administration Pain, Moderate (4-6) Ondansetron HCl 4 mg 12/13/18 18:19 Zofran IV Q8H PRN Nausea And Vomiting Oxycodone/Acetaminophen 1 tab 12/13/18 19:27 12/16/18 03:19 Percocet 5/325 PO 1 tab Q6H PRN Administration Pain, Moderate (4-6) Sodium Chloride 10 ml 12/13/18 22:00 12/15/18 22:42 Sodium Chloride Flush Syringe 10 Ml IV 10 ml BID STEVE Administration Sodium Chloride 10 ml 12/13/18 18:19 12/14/18 19:46 Sodium Chloride Flush Syringe 10 Ml IV 10 ml PRN PRN Administration LINE FLUSH
[2018-12-16] MEDS: ARFORMOTEROL 15 MCG/2 ML NEBU IH SCH ×2 (08:12→20:16)
[2018-12-16] MEDS: BUDESONIDE 0.5 MG/2 ML NEBU IH SCH ×2 (08:12→20:16)
[2018-12-16] MEDS: cefTRIAXone/NS 2 GM/100 ML 2 GM/100 ML BAG IV SCH (10:09)
[2018-12-16] MEDS: VANCOMYCIN/NS 1 GM/250 ML 1 GM/250 ML BAG IV SCH (10:10)
[2018-12-16] MEDS: DOCUSATE SODIUM 100 MG CAP PO SCH ×2 (10:10→23:29)
[2018-12-16] MEDS: amLODIPine 10 MG TAB PO SCH (10:10)
[2018-12-16] MEDS: ASPIRIN EC 81 MG TAB PO SCH (10:10)
[2018-12-16] MEDS: COLCHICINE 0.6 MG CAP PO SCH (10:10)
[2018-12-16] MEDS: allopurinoL 100 MG TAB PO SCH (10:11)
[2018-12-16] MEDS: VANCOMYCIN 1,250 MG in SODIUM CHLORIDE 0.9% 250ML 250 ML IV SCH ×2 (12:53→23:29)
[2018-12-16] MEDS: MORPHINE 2 MG/1 ML INJ IV PRN (12:54)
[2018-12-16] MEDS ORDERED: MOXIFLOXACIN 0.5% OPHTH SOLN 3ML OU SCH (14:00)
[2018-12-17 05:03] LABS: Hematocrit 24.1 % (35.5-45.6); Hemoglobin 7.5 gm/dl (11.8-15.2); Mean Corpuscular HGB Conc 31 % (32-34); Mean Corpuscular Volume 84 fl (84-94); Red Blood Count 2.87 M/mm3 (3.65-5.03)
[2018-12-17 05:09] LABS: Platelet Count 87 K/mm3 (140-440); Red Cell Distribution Width 22.2 % (13.2-15.2)
[2018-12-17 05:28] LABS: Alanine Aminotransferase 81 units/L (7-56); Albumin 3.1 g/dL (3.9-5); BUN/Creatinine Ratio 14; Blood Urea Nitrogen 10 mg/dL (9-20); Calcium 9.1 mg/dL (8.4-10.2); Hemolysis Index 0
[2018-12-17] MEDS: oxyCODONE /ACETAMINOPHEN 5-325MG TAB PO PRN ×2 (05:37→19:25)
[2018-12-17] MEDS: MAGNESIUM HYDROXIDE (MOM) ORAL LIQD UDC PO PRN (05:40)
[2018-12-17] MEDS: BUDESONIDE 0.5 MG/2 ML NEBU IH SCH ×2 (08:28→21:12)
[2018-12-17] MEDS: ARFORMOTEROL 15 MCG/2 ML NEBU IH SCH ×2 (08:28→21:12)
[2018-12-17] MEDS: allopurinoL 100 MG TAB PO SCH (09:23)
[2018-12-17] MEDS: DOCUSATE SODIUM 100 MG CAP PO SCH ×2 (09:23→23:04)
[2018-12-17] MEDS: COLCHICINE 0.6 MG CAP PO SCH (09:23)
[2018-12-17] MEDS: ASPIRIN EC 81 MG TAB PO SCH (09:23)
[2018-12-17] MEDS: amLODIPine 10 MG TAB PO SCH (09:28)
[2018-12-17] MEDS: cefTRIAXone/NS 2 GM/100 ML 2 GM/100 ML BAG IV SCH (09:29)
[2018-12-17] MEDS: VANCOMYCIN 1,250 MG in SODIUM CHLORIDE 0.9% 250ML 250 ML IV SCH ×2 (12:09→23:04)
--- NOTE | 2018-12-17 13:39 | Progress Note ---
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 1. Sepsis - present on admission with leukocytosis and tachycardia. Had low grade temps but no fevers documented. Likely secondary to septic arthritis. 2. Septic arthritis - pending ortho eval and possible joint tap. MRI not possible due to metallic shrapnel fragment. Would continue vancomycin and ceftriaxone for now. If tap performed please send for culture. Leukocytosis may not be reliable indicator given cancer. Possibly due to gout, arthrocentesis would be beneficial. 3. 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 COPD Recs: - continue vancomycin dosed per pharmacy, goal trough 15-20 - continue ceftriaxone 2g q24h - no arthrocentesis performed. in the absence of convincing data to suggest a crystal arthropathy would recommend treatment for septic arthritis for 4 weeks with vancomycin and ceftriaxone. Thank you for the consult, we will continue to follow. Sharif Caballero MD [facility], [facility] ([facility]) M: [phone] O: [phone] F: [phone] Subjective Date of service: 12/17/18 Interval history: Ongoing pain in the elbow and wrist. No fevers. Leukocytosis stable. Objective - Exam Narrative Exam: Constitutional: Alert, cooperative. No acute distress Head, Ears, Nose: Normocephalic, atraumatic. External ears, nose normal Eyes: Conjunctivae/corneas clear. No icterus. No ptosis. Neck: Supple, no meningeal signs Oral: dentition fair, no thrush Cardiovascular: S1, S2 normal. Respiratory: Good air entry, clear to auscultation bilaterally GI: Soft, non-tender; bowel sounds normal. No peritoneal signs. Musculoskeletal: No pedal edema, no cyanosis. R wrist and elbow tender, decreased ROM, red Skin: No rash or abscess Hem/Lymphatic: No palpable cervical or supraclavicular nodes. No lymphangitis Psych: Mood ok. Affect normal Neurological: Awake, alert, oriented. No gross abnormality - Constitutional Vitals: Vital Signs Temp Pulse Resp BP Pulse Ox 98.2 F 83 20 109/69 98 12/17/18 07:20 12/17/18 10:00 12/17/18 10:00 12/17/18 09:28 12/17/18 10:00 Temperature -Last 24 Hours Temperature 98.2 F Temperature 98.0 F Temperature 99.3 F - Labs CBC & Chem 7: 12/17/18 04:34 12/17/18 04:34 Labs: Abnormal lab results 12/17/18 12/17/18 Range/Units 04:34 04:34 WBC 15.4 H (4.5-11.0) K/mm3 RBC 2.87 L (3.65-5.03) M/mm3 Hgb 7.5 L (11.8-15.2) gm/dl Hct 24.1 L (35.5-45.6) % MCH 26 L (28-32) pg MCHC 31 L (32-34) % RDW 22.2 H (13.2-15.2) % Plt Count 87 L (140-440) K/mm3 Sodium 133 L (137-145) mmol/L Carbon Dioxide 20 L (22-30) mmol/L Creatinine 0.7 L (0.8-1.5) mg/dL AST 45 H (5-40) units/L ALT 81 H (7-56) units/L Albumin 3.1 L (3.9-5) g/dL
--- NOTE | 2018-12-17 14:56 | Progress Note ---
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 Pt states that he has experienced generalized weakness over the past 1 week with worsening symptoms over the same time frame. Pt also reports Left wrist and elbow pain with worsening symptoms over the past 2 days. Pt states that pain is 8/10, and limits his ability to use his left arm. Pain is constant, worsened with movement, relieved with rest. Pt transported to [facility] via private vehicle. Pt seen and evaluated in ED and found to have SIRS, Left Elbow pain, UTI, Acidosis, and Hyponatremia. Pt admitted to TINY unit. Ortho surgery consulted in ED. Pt denies fever, chills, CP, Palpitations, NVD, Skin rash, productive cough, or recent ill contacts. * Pt treated for Septic Arthritis at [facility]. Pt treated with 5 week course of IV antibiotic therapy October 02 through October 30 for septic arthritis of left wrist, status post I and D; reportedly status post 5 weeks of ceftriaxone and vancomycin completed on October 30. No prior ad mission for review. All listed mediation reconciled at time of admission. * also recently hospitalized at [facility] 11/15/2018 2 11/24/2018 for recurrent left wrist pain, treated with colchicine and allopurinol. * Patient has reportedly followed up with an outpatient physician, Dr. Whitmore for potential cancer treatment, however, therapy has been withheld secondary to concerns regarding side effects profile. * A bone marrow biopsy from August 2018 showed worsening platelet counts, anemia, conversion to amL. 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 His enclose paperwork does not appear to indicate other outpatient antibiotics. Sepsis-POA Metabolic Acidosis ANEMIA of chronic illness Hyponatremia- Resolving Acute Cystitis Polyarthritis-?SEPTIC Arthritis CML-AML Debility Tranaminitis Constipation Leukocytosis Plan Continue abx Awaiting ORTHO EVAL to decide antibiotics and full antibiotic recommendation Ortho consult called again Continue stoo softener Uric acid is normal Complete abx Outpatient Hematology Monitor LFT ID input noted Await Ortho input Anticipate discharge in am if no further input from ortho DVT/GI prophy History Interval history: Patient seen and examined, stays some improvement in pain in the arm. moved bowel Hospitalist Physical - Physical exam Narrative exam: VITAL SIGNS: Reviewed. GENERAL: The patient appears normally developed, chronically ill appearing, Vital signs as documented. HEAD: No signs of head trauma. EYES: Pupils are equal. Extraocular motions intact. EARS: Hearing grossly intact. MOUTH: Oropharynx is normal. NECK: No adenopathy, no JVD. CHEST: Chest with clear breath sounds bilaterally. No wheezes, rales, or rhonchi. CARDIAC: Regular rate and rhythm. S1 and S2, without murmurs, gallops, or rubs. VASCULAR: No Edema. Peripheral pulses normal and equal in all extremities. ABDOMEN: Soft, non tender and non distended. No rebound or guarding, and no masses palpated. Bowel Sounds normal. MUSCULOSKELETAL: Left lower ext with Decreased ROM,no further warmth, red, otherwise other joints with Good range of motion of all major joints. Extremities without clubbing, cyanosis or edema. NEUROLOGIC EXAM: Alert and oriented x 3 No focal sensory or strength deficits. Speech normal. Follows commands. PSYCHIATRIC: Mood normal. SKIN: denial exam as documented in skin assessment - Constitutional Vitals: Temp Pulse Resp BP Pulse Ox 98.0 F 85 20 124/59 100 12/17/18 13:37 12/17/18 13:37 12/17/18 13:37 12/17/18 13:37 12/17/18 13:37 General appearance: Present: mild distress Results - Labs CBC & Chem 7: 12/17/18 04:34 12/17/18 04:34 Labs: Laboratory Last Values WBC 15.4 K/mm3 (4.5-11.0) H 12/17/18 04:34 RBC 2.87 M/mm3 (3.65-5.03) L 12/17/18 04:34 Hgb 7.5 gm/dl (11.8-15.2) L 12/17/18 04:34 Hct 24.1 % (35.5-45.6) L 12/17/18 04:34 MCV 84 fl (84-94) 12/17/18 04:34 MCH 26 pg (28-32) L 12/17/18 04:34 MCHC 31 % (32-34) L 12/17/18 04:34 RDW 22.2 % (13.2-15.2) H 12/17/18 04:34 Plt Count 87 K/mm3 (140-440) L 12/17/18 04:34 [place] % (Auto) Fleet Manager/Dispatch 12/14/18 04:05 Add Manual Diff Complete 12/14/18 04:05 Total Counted 100 12/14/18 04:05 Seg Neutrophils % Fleet Manager/Dispatch 12/13/18 15:05 Seg Neuts % (Manual) 47.0 % (40.0-70.0) 12/14/18 04:05 Band Neutrophils % 0 % 12/14/18 04:05 Lymphocytes % (Manual) 9.0 % (13.4-35.0) L 12/14/18 04:05 Reactive Lymphs % (Man) 0 % 12/14/18 04:05 Monocytes % (Manual) 44.0 % (0.0-7.3) H 12/14/18 04:05 Eosinophils % (Manual) 0 % (0.0-4.3) 12/14/18 04:05 Basophils % (Manual) 0 % (0.0-1.8) 12/14/18 04:05 Metamyelocytes % 0 % 12/14/18 04:05 Myelocytes % 0 % 12/14/18 04:05 Promyelocytes % 0 % 12/14/18 04:05 Blast Cells % 0 % 12/14/18 04:05 Nucleated RBC % Not Reportable 12/14/18 04:05 Seg Neutrophils # Man 8.3 K/mm3 (1.8-7.7) H 12/14/18 04:05 Band Neutrophils # 0.0 K/mm3 12/14/18 04:05 Lymphocytes # (Manual) 1.6 K/mm3 (1.2-5.4) 12/14/18 04:05 Abs React Lymphs (Man) 0.0 K/mm3 12/14/18 04:05 Monocytes # (Manual) 7.7 K/mm3 (0.0-0.8) H 12/14/18 04:05 Eosinophils # (Manual) 0.0 K/mm3 (0.0-0.4) 12/14/18 04:05 Basophils # (Manual) 0.0 K/mm3 (0.0-0.1) 12/14/18 04:05 Metamyelocytes # 0.0 K/mm3 12/14/18 04:05 Myelocytes # 0.0 K/mm3 12/14/18 04:05 Promyelocytes # 0.0 K/mm3 12/14/18 04:05 Blast Cells # 0.0 K/mm3 12/14/18 04:05 Pathologist Review 12/13/18 15:05 WBC Morphology Not Reportable 12/14/18 04:05 Hypersegmented Neuts Not Reportable 12/14/18 04:05 Hyposegmented Neuts Not Reportable 12/14/18 04:05 Hypogranular Neuts Not Reportable 12/14/18 04:05 Smudge Cells Not Reportable 12/14/18 04:05 Toxic Granulation Not Reportable 12/14/18 04:05 Toxic Vacuolation Not Reportable 12/14/18 04:05 Dohle Bodies Not Reportable 12/14/18 04:05 Pelger-Huet Anomaly Not Reportable 12/14/18 04:05 Willow Rods Not Reportable 12/14/18 04:05 Platelet Estimate Consistent w auto 12/14/18 04:05 Clumped Platelets Not Reportable 12/14/18 04:05 Plt Clumps, EDTA Not Reportable 12/14/18 04:05 Large Platelets Not Reportable 12/14/18 04:05 Giant Platelets Not Reportable 12/14/18 04:05 Platelet Satelliting Not Reportable 12/14/18 04:05 Plt Morphology Comment Not Reportable 12/14/18 04:05 RBC Morphology Not Reportable 12/14/18 04:05 Dimorphic RBCs Not Reportable 12/14/18 04:05 Polychromasia Not Reportable 12/14/18 04:05 Hypochromasia Not Reportable 12/14/18 04:05 Poikilocytosis Not Reportable 12/14/18 04:05 Anisocytosis Not Reportable 12/14/18 04:05 Microcytosis Not Reportable 12/14/18 04:05 Macrocytosis Not Reportable 12/14/18 04:05 Spherocytes Not Reportable 12/14/18 04:05 Pappenheimer Bodies Not Reportable 12/14/18 04:05 Sickle Cells Not Reportable 12/14/18 04:05 Target Cells 1+ 12/14/18 04:05 Tear Drop Cells Not Reportable 12/14/18 04:05 Ovalocytes Not Reportable 12/14/18 04:05 Helmet Cells Not Reportable 12/14/18 04:05 Chambers-[place] Bodies Not Reportable 12/14/18 04:05 [place] Rings Not Reportable 12/14/18 04:05 Rene Cells Not Reportable 12/14/18 04:05 Bite Cells Not Reportable 12/14/18 04:05 Crenated Cell Not Reportable 12/14/18 04:05 Elliptocytes Not Reportable 12/14/18 04:05 Acanthocytes (Spur) Not Reportable 12/14/18 04:05 Rouleaux Not Reportable 12/14/18 04:05 Hemoglobin C Crystals Not Reportable 12/14/18 04:05 Schistocytes Few 12/14/18 04:05 Malaria parasites Not Reportable 12/14/18 04:05 ESR > 140.0 mm/Hr (0-20) 12/13/18 17:46 Terry Bodies Not Reportable 12/14/18 04:05 Hem Pathologist Commnt Sent to pathology 12/14/18 04:05 Sodium 133 mmol/L (137-145) L 12/17/18 04:34 Potassium 4.1 mmol/L (3.6-5.0) 12/17/18 04:34 Chloride 98.3 mmol/L (98-107) 12/17/18 04:34 Carbon Dioxide 20 mmol/L (22-30) L 12/17/18 04:34 Anion Gap 19 mmol/L 12/17/18 04:34 BUN 10 mg/dL (9-20) 12/17/18 04:34 Creatinine 0.7 mg/dL (0.8-1.5) L 12/17/18 04:34 Estimated GFR > 60 ml/min 12/17/18 04:34 BUN/Creatinine Ratio 14 % 12/17/18 04:34 Glucose 91 mg/dL (75-100) 12/17/18 04:34 POC Glucose 118 (70-105) H 12/14/18 23:15 Lactic Acid 0.60 mmol/L (0.7-2.0) L 12/13/18 21:28 Uric Acid 5.1 mg/dL (3.5-7.6) 12/14/18 08:22 Calcium 9.1 mg/dL (8.4-10.2) 12/17/18 04:34 Magnesium 2.10 mg/dL (1.7-2.3) 12/13/18 17:46 Total Bilirubin 0.60 mg/dL (0.1-1.2) 12/17/18 04:34 Direct Bilirubin 0.3 mg/dL (0-0.2) H 12/13/18 16:36 Indirect Bilirubin 0.3 mg/dL 12/13/18 16:36 AST 45 units/L (5-40) H 12/17/18 04:34 ALT 81 units/L (7-56) H 12/17/18 04:34 Alkaline Phosphatase 126 units/L (35-129) 12/17/18 04:34 Total Creatine Kinase 142 units/L (55-170) 12/13/18 17:46 C-Reactive Protein 25.30 mg/dL (0.00-1.30) H 12/13/18 17:46 Total Protein 8.0 g/dL (6.3-8.2) 12/17/18 04:34 Albumin 3.1 g/dL (3.9-5) L 12/17/18 04:34 Albumin/Globulin Ratio 0.6 % 12/17/18 04:34 Urine Color Yellow (Yellow) 12/13/18 Unknown Urine Turbidity Slightly-cloudy (Clear) 12/13/18 Unknown Urine pH 5.0 (5.0-7.0) 12/13/18 Unknown Ur Specific [place] 1.014 (1.003-1.030) 12/13/18 Unknown Urine Protein <15 mg/dl mg/dL (Negative) 12/13/18 Unknown Urine Glucose (UA) Neg mg/dL (Negative) 12/13/18 Unknown Urine Ketones Tr mg/dL (Negative) 12/13/18 Unknown Urine Blood Mod (Negative) 12/13/18 Unknown Urine Nitrite Neg (Negative) 12/13/18 Unknown Urine Bilirubin Neg (Negative) 12/13/18 Unknown Urine Urobilinogen < 2.0 mg/dL (<2.0) 12/13/18 Unknown Ur Leukocyte Esterase Lg (Negative) 12/13/18 Unknown Urine WBC (Auto) 52.0 /HPF (0.0-6.0) H 12/13/18 Unknown Urine RBC (Auto) 20.0 /HPF (0.0-6.0) 12/13/18 Unknown U Epithel Cells (Auto) < 1.0 /HPF (0-13.0) 12/13/18 Unknown Urine Bacteria (Auto) 2+ /HPF (Negative) 12/13/18 Unknown Urine Mucus Few /HPF 12/13/18 Unknown Urine Yeast (Budding) 1+ /HPF 12/13/18 Unknown Vancomycin Trough 12.4 ug/mL (5.0-20.0) 12/15/18 09:16 Blood Type B POSITIVE 12/13/18 15:05 Antibody Screen Negative 12/13/18 15:05 Active Medications - Current Medications Current Medications: Generic Name Dose Route Start Last Admin Trade Name Freq PRN Reason Stop Dose Admin Acetaminophen 650 mg 12/13/18 18:19 12/16/18 00:23 Tylenol PO 650 mg Q4H PRN Administration Pain MILD(1-3)/Fever >100.5/[place] Albuterol 2.5 mg 12/13/18 18:19 Proventil IH Q4HRT PRN Shortness Of Breath Allopurinol 100 mg 12/14/18 10:00 12/17/18 09:23 Zyloprim PO 100 mg QDAY STEVE Administration Amlodipine Besylate 10 mg 12/14/18 10:00 12/17/18 09:28 Amlodipine PO 10 mg DAILY STEVE Administration Arformoterol Tartrate 15 mcg 12/13/18 20:00 12/17/18 08:28 Brovana Nebu IH 15 mcg Q12HRT STEVE Administration Aspirin 81 mg 12/14/18 10:00 12/17/18 09:23 Halfprin Ec PO 81 mg QDAY STEVE Administration Budesonide 0.5 mg 12/13/18 20:00 12/17/18 08:28 Pulmicort IH 0.5 mg Q12HRT STEVE Administration Colchicine 0.6 mg 12/14/18 10:00 12/17/18 09:23 Colchicine PO 0.6 mg QDAY STEVE Administration Docusate Sodium 100 mg 12/16/18 10:00 12/17/18 09:23 Colace PO 100 mg BID STEVE Administration Ceftriaxone Sodium 2 gm in 100 mls @ 200 mls/hr 12/14/18 10:00 12/17/18 09:29 Rocephin/Ns 2 Gm/100 Ml IV 200 mls/hr DAILY STEVE Administration Protocol Vancomycin HCl 1,250 mg/ 275 mls @ 166.667 mls/hr 12/15/18 11:30 12/17/18 12:09 Sodium Chloride IV 166.667 mls/hr Q12H STEVE Administration Magnesium Hydroxide 30 ml 12/16/18 07:54 12/17/18 05:40 Milk Of Magnesia PO 30 ml Q4H PRN Administration Constipation Morphine Sulfate 2 mg 12/13/18 19:27 12/16/18 12:54 Morphine IV 2 mg Q4H PRN Administration Pain, Moderate (4-6) Ondansetron HCl 4 mg 12/13/18 18:19 Zofran IV Q8H PRN Nausea And Vomiting Oxycodone/Acetaminophen 1 tab 12/13/18 19:27 12/17/18 05:37 Percocet 5/325 PO 1 tab Q6H PRN Administration Pain, Moderate (4-6) Sodium Chloride 10 ml 12/13/18 22:00 12/17/18 09:31 Sodium Chloride Flush Syringe 10 Ml IV 10 ml BID STEVE Administration Sodium Chloride 10 ml 12/13/18 18:19 12/14/18 19:46 Sodium Chloride Flush Syringe 10 Ml IV 10 ml PRN PRN Administration LINE FLUSH
[2018-12-18] MEDS: VANCOMYCIN 1,250 MG in SODIUM CHLORIDE 0.9% 250ML 250 ML IV SCH ×2 (00:16→11:01)
[2018-12-18] MEDS: oxyCODONE /ACETAMINOPHEN 5-325MG TAB PO PRN ×3 (01:45→20:21)
[2018-12-18] MEDS: ARFORMOTEROL 15 MCG/2 ML NEBU IH SCH ×2 (09:12→21:01)
[2018-12-18] MEDS: BUDESONIDE 0.5 MG/2 ML NEBU IH SCH ×2 (09:12→21:01)
[2018-12-18] MEDS: cefTRIAXone/NS 2 GM/100 ML 2 GM/100 ML BAG IV SCH (09:52)
[2018-12-18] MEDS: amLODIPine 10 MG TAB PO SCH (09:54)
[2018-12-18] MEDS: COLCHICINE 0.6 MG CAP PO SCH (09:54)
[2018-12-18] MEDS: ASPIRIN EC 81 MG TAB PO SCH (09:55)
[2018-12-18] MEDS: allopurinoL 100 MG TAB PO SCH (09:55)
[2018-12-18] MEDS: DOCUSATE SODIUM 100 MG CAP PO SCH (09:55)
[2018-12-18] MEDS: MAGNESIUM HYDROXIDE (MOM) ORAL LIQD UDC PO PRN (10:07)
--- NOTE | 2018-12-18 11:17 | Progress Note ---
Assessment and Plan Assessment and plan: --Sepsis-POA, leukocytosis tachycardia documented low-grade fevers Secondary to septic arthritis, on IV antibiotics, ID following --SEPTIC Arthritis; IV antibiotics, Ortho evaluated the patient Unable to get a moderate due to shrapnel fragments in the body ID recommended 4 weeks of IV antibiotics Orthopedic evaluated, did not recommend arthrocentesis --CML-AML; outpatient follow-up with hematology oncology --Metabolic Acidosis; significantly improved --ANEMIA of chronic illness; closely monitor H&H Transfuse as needed --Hyponatremia-sodium levels trending up --Acute Cystitis; empiric antibiotics follow cultures --Debility; physical therapy occupational therapy supportive care --Tranaminitis; trending down closely monitor --Severe malnutrition/hypoalbuminemia; present on admission --Constipation; stool softener milk of magnesia If no improvement in edema DC planning per case management; setting up IV antibiotics Awaiting insurance pre-CERT/approval History Interval history: Patient seen and examined this morning. Medical chart reviewed Patient complaints of constipation 6-7 days Patient is comfortable no other symptoms Vital signs reviewed Hospitalist Physical - Constitutional Vitals: Temp Pulse Resp BP Pulse Ox 98.7 F 83 18 116/63 100 12/18/18 07:08 12/18/18 09:54 12/18/18 09:15 12/18/18 09:54 12/18/18 07:08 General appearance: Present: mild distress, well-nourished - EENT Eyes: Present: PERRL, EOM intact - Neck Neck: Present: supple, normal ROM - Respiratory Respiratory effort: normal Respiratory: bilateral: diminished, negative: rales, rhonchi, wheezing - Cardiovascular Rhythm: regular Heart Sounds: Present: S1 & S2 - Extremities Extremities: abnormal (elbow swelling) Extremity abnormal: edema - Abdominal General gastrointestinal: soft, non-tender, non-distended, normal bowel sounds - Integumentary Integumentary: Present: clear, warm - Psychiatric Psychiatric: appropriate mood/affect, cooperative - Neurologic Neurologic: CNII-XII intact, moves all extremities Results - Labs CBC & Chem 7: 12/17/18 04:34 12/17/18 04:34 Labs: Laboratory Last Values WBC 15.4 K/mm3 (4.5-11.0) H 12/17/18 04:34 RBC 2.87 M/mm3 (3.65-5.03) L 12/17/18 04:34 Hgb 7.5 gm/dl (11.8-15.2) L 12/17/18 04:34 Hct 24.1 % (35.5-45.6) L 12/17/18 04:34 MCV 84 fl (84-94) 12/17/18 04:34 MCH 26 pg (28-32) L 12/17/18 04:34 MCHC 31 % (32-34) L 12/17/18 04:34 RDW 22.2 % (13.2-15.2) H 12/17/18 04:34 Plt Count 87 K/mm3 (140-440) L 12/17/18 04:34 [place] % (Auto) Machine Maintenance Supervisor 12/14/18 04:05 Add Manual Diff Complete 12/14/18 04:05 Total Counted 100 12/14/18 04:05 Seg Neutrophils % Machine Maintenance Supervisor 12/13/18 15:05 Seg Neuts % (Manual) 47.0 % (40.0-70.0) 12/14/18 04:05 Band Neutrophils % 0 % 12/14/18 04:05 Lymphocytes % (Manual) 9.0 % (13.4-35.0) L 12/14/18 04:05 Reactive Lymphs % (Man) 0 % 12/14/18 04:05 Monocytes % (Manual) 44.0 % (0.0-7.3) H 12/14/18 04:05 Eosinophils % (Manual) 0 % (0.0-4.3) 12/14/18 04:05 Basophils % (Manual) 0 % (0.0-1.8) 12/14/18 04:05 Metamyelocytes % 0 % 12/14/18 04:05 Myelocytes % 0 % 12/14/18 04:05 Promyelocytes % 0 % 12/14/18 04:05 Blast Cells % 0 % 12/14/18 04:05 Nucleated RBC % Not Reportable 12/14/18 04:05 Seg Neutrophils # Man 8.3 K/mm3 (1.8-7.7) H 12/14/18 04:05 Band Neutrophils # 0.0 K/mm3 12/14/18 04:05 Lymphocytes # (Manual) 1.6 K/mm3 (1.2-5.4) 12/14/18 04:05 Abs React Lymphs (Man) 0.0 K/mm3 12/14/18 04:05 Monocytes # (Manual) 7.7 K/mm3 (0.0-0.8) H 12/14/18 04:05 Eosinophils # (Manual) 0.0 K/mm3 (0.0-0.4) 12/14/18 04:05 Basophils # (Manual) 0.0 K/mm3 (0.0-0.1) 12/14/18 04:05 Metamyelocytes # 0.0 K/mm3 12/14/18 04:05 Myelocytes # 0.0 K/mm3 12/14/18 04:05 Promyelocytes # 0.0 K/mm3 12/14/18 04:05 Blast Cells # 0.0 K/mm3 12/14/18 04:05 Pathologist Review 12/13/18 15:05 WBC Morphology Not Reportable 12/14/18 04:05 Hypersegmented Neuts Not Reportable 12/14/18 04:05 Hyposegmented Neuts Not Reportable 12/14/18 04:05 Hypogranular Neuts Not Reportable 12/14/18 04:05 Smudge Cells Not Reportable 12/14/18 04:05 Toxic Granulation Not Reportable 12/14/18 04:05 Toxic Vacuolation Not Reportable 12/14/18 04:05 Dohle Bodies Not Reportable 12/14/18 04:05 Pelger-Huet Anomaly Not Reportable 12/14/18 04:05 Willow Rods Not Reportable 12/14/18 04:05 Platelet Estimate Consistent w auto 12/14/18 04:05 Clumped Platelets Not Reportable 12/14/18 04:05 Plt Clumps, EDTA Not Reportable 12/14/18 04:05 Large Platelets Not Reportable 12/14/18 04:05 Giant Platelets Not Reportable 12/14/18 04:05 Platelet Satelliting Not Reportable 12/14/18 04:05 Plt Morphology Comment Not Reportable 12/14/18 04:05 RBC Morphology Not Reportable 12/14/18 04:05 Dimorphic RBCs Not Reportable 12/14/18 04:05 Polychromasia Not Reportable 12/14/18 04:05 Hypochromasia Not Reportable 12/14/18 04:05 Poikilocytosis Not Reportable 12/14/18 04:05 Anisocytosis Not Reportable 12/14/18 04:05 Microcytosis Not Reportable 12/14/18 04:05 Macrocytosis Not Reportable 12/14/18 04:05 Spherocytes Not Reportable 12/14/18 04:05 Pappenheimer Bodies Not Reportable 12/14/18 04:05 Sickle Cells Not Reportable 12/14/18 04:05 Target Cells 1+ 12/14/18 04:05 Tear Drop Cells Not Reportable 12/14/18 04:05 Ovalocytes Not Reportable 12/14/18 04:05 Helmet Cells Not Reportable 12/14/18 04:05 [place] Bodies Not Reportable 12/14/18 04:05 [place] Rings Not Reportable 12/14/18 04:05 Rene Cells Not Reportable 12/14/18 04:05 Bite Cells Not Reportable 12/14/18 04:05 Crenated Cell Not Reportable 12/14/18 04:05 Elliptocytes Not Reportable 12/14/18 04:05 Acanthocytes (Spur) Not Reportable 12/14/18 04:05 Rouleaux Not Reportable 12/14/18 04:05 Hemoglobin C Crystals Not Reportable 12/14/18 04:05 Schistocytes Few 12/14/18 04:05 Malaria parasites Not Reportable 12/14/18 04:05 ESR > 140.0 mm/Hr (0-20) 12/13/18 17:46 Terry Bodies Not Reportable 12/14/18 04:05 Hem Pathologist Commnt Sent to pathology 12/14/18 04:05 Sodium 133 mmol/L (137-145) L 12/17/18 04:34 Potassium 4.1 mmol/L (3.6-5.0) 12/17/18 04:34 Chloride 98.3 mmol/L (98-107) 12/17/18 04:34 Carbon Dioxide 20 mmol/L (22-30) L 12/17/18 04:34 Anion Gap 19 mmol/L 12/17/18 04:34 BUN 10 mg/dL (9-20) 12/17/18 04:34 Creatinine 0.7 mg/dL (0.8-1.5) L 12/17/18 04:34 Estimated GFR > 60 ml/min 12/17/18 04:34 BUN/Creatinine Ratio 14 % 12/17/18 04:34 Glucose 91 mg/dL (75-100) 12/17/18 04:34 POC Glucose 118 (70-105) H 12/14/18 23:15 Lactic Acid 0.60 mmol/L (0.7-2.0) L 12/13/18 21:28 Uric Acid 5.1 mg/dL (3.5-7.6) 12/14/18 08:22 Calcium 9.1 mg/dL (8.4-10.2) 12/17/18 04:34 Magnesium 2.10 mg/dL (1.7-2.3) 12/13/18 17:46 Total Bilirubin 0.60 mg/dL (0.1-1.2) 12/17/18 04:34 Direct Bilirubin 0.3 mg/dL (0-0.2) H 12/13/18 16:36 Indirect Bilirubin 0.3 mg/dL 12/13/18 16:36 AST 45 units/L (5-40) H 12/17/18 04:34 ALT 81 units/L (7-56) H 12/17/18 04:34 Alkaline Phosphatase 126 units/L (35-129) 12/17/18 04:34 Total Creatine Kinase 142 units/L (55-170) 12/13/18 17:46 C-Reactive Protein 25.30 mg/dL (0.00-1.30) H 12/13/18 17:46 Total Protein 8.0 g/dL (6.3-8.2) 12/17/18 04:34 Albumin 3.1 g/dL (3.9-5) L 12/17/18 04:34 Albumin/Globulin Ratio 0.6 % 12/17/18 04:34 Urine Color Yellow (Yellow) 12/13/18 Unknown Urine Turbidity Slightly-cloudy (Clear) 12/13/18 Unknown Urine pH 5.0 (5.0-7.0) 12/13/18 Unknown Ur Specific [place] 1.014 (1.003-1.030) 12/13/18 Unknown Urine Protein <15 mg/dl mg/dL (Negative) 12/13/18 Unknown Urine Glucose (UA) Neg mg/dL (Negative) 12/13/18 Unknown Urine Ketones Tr mg/dL (Negative) 12/13/18 Unknown Urine Blood Mod (Negative) 12/13/18 Unknown Urine Nitrite Neg (Negative) 12/13/18 Unknown Urine Bilirubin Neg (Negative) 12/13/18 Unknown Urine Urobilinogen < 2.0 mg/dL (<2.0) 12/13/18 Unknown Ur Leukocyte Esterase Lg (Negative) 12/13/18 Unknown Urine WBC (Auto) 52.0 /HPF (0.0-6.0) H 12/13/18 Unknown Urine RBC (Auto) 20.0 /HPF (0.0-6.0) 12/13/18 Unknown U Epithel Cells (Auto) < 1.0 /HPF (0-13.0) 12/13/18 Unknown Urine Bacteria (Auto) 2+ /HPF (Negative) 12/13/18 Unknown Urine Mucus Few /HPF 12/13/18 Unknown Urine Yeast (Budding) 1+ /HPF 12/13/18 Unknown Vancomycin Trough 15.9 ug/mL (5.0-20.0) 12/17/18 23:11 Blood Type B POSITIVE 12/13/18 15:05 Antibody Screen Negative 12/13/18 15:05 Active Medications - Current Medications Current Medications: Generic Name Dose Route Start Last Admin Trade Name Freq PRN Reason Stop Dose Admin Acetaminophen 650 mg 12/13/18 18:19 12/16/18 00:23 Tylenol PO 650 mg Q4H PRN Administration Pain MILD(1-3)/Fever >100.5/[place] Albuterol 2.5 mg 12/13/18 18:19 Proventil IH Q4HRT PRN Shortness Of Breath Allopurinol 100 mg 12/14/18 10:00 12/18/18 09:55 Zyloprim PO 100 mg QDAY STEVE Administration Amlodipine Besylate 10 mg 12/14/18 10:00 12/18/18 09:54 Amlodipine PO 10 mg DAILY STEVE Administration Arformoterol Tartrate 15 mcg 12/13/18 20:00 12/18/18 09:12 Broveronica Hernandezu IH 15 mcg Q12HRT STEVE Administration Aspirin 81 mg 12/14/18 10:00 12/18/18 09:55 Halfprin Ec PO 81 mg QDAY STEVE Administration Budesonide 0.5 mg 12/13/18 20:00 12/18/18 09:12 Pulmicort IH 0.5 mg Q12HRT STEVE Administration Colchicine 0.6 mg 12/14/18 10:00 12/18/18 09:54 Colchicine PO 0.6 mg QDAY STEVE Administration Docusate Sodium 100 mg 12/16/18 10:00 12/18/18 09:55 Colace PO 100 mg BID STEVE Administration Ceftriaxone Sodium 2 gm in 100 mls @ 200 mls/hr 12/14/18 10:00 12/18/18 09:52 Rocephin/Ns 2 Gm/100 Ml IV 200 mls/hr DAILY STEVE Administration Protocol Vancomycin HCl 1,250 mg/ 275 mls @ 166.667 mls/hr 12/15/18 11:30 12/18/18 11:01 Sodium Chloride IV 166.667 mls/hr Q12H STEVE Administration Magnesium Hydroxide 30 ml 12/16/18 07:54 12/18/18 10:07 Milk Of Magnesia PO 30 ml Q4H PRN Administration Constipation Morphine Sulfate 2 mg 12/13/18 19:27 12/16/18 12:54 Morphine IV 2 mg Q4H PRN Administration Pain, Moderate (4-6) Ondansetron HCl 4 mg 12/13/18 18:19 Zofran IV Q8H PRN Nausea And Vomiting Oxycodone/Acetaminophen 1 tab 12/13/18 19:27 12/18/18 10:06 Percocet 5/325 PO 1 tab Q6H PRN Administration Pain, Moderate (4-6) Sodium Chloride 10 ml 12/13/18 22:00 12/18/18 09:56 Sodium Chloride Flush Syringe 10 Ml IV 10 ml BID STEVE Administration Sodium Chloride 10 ml 12/13/18 18:19 12/14/18 19:46 Sodium Chloride Flush Syringe 10 Ml IV 10 ml PRN PRN Administration LINE FLUSH
[2018-12-18] MEDS ORDERED: FLEET ENEMA PR ONE (12:00)
--- NOTE | 2018-12-18 12:54 | Progress Note ---
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 1. Sepsis - present on admission with leukocytosis and tachycardia. Had low grade temps but no fevers documented. Likely secondary to septic arthritis. 2. Septic arthritis - pending ortho eval and possible joint tap. MRI not possible due to metallic shrapnel fragment. Would continue vancomycin and ceftriaxone for now. If tap performed please send for culture. Leukocytosis may not be reliable indicator given cancer. Possibly due to gout, arthrocentesis would be beneficial. 3. 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 COPD Recs: - continue vancomycin dosed per pharmacy, goal trough 15-20 - continue ceftriaxone 2g q24h - no arthrocentesis performed. in the absence of convincing data to suggest a crystal arthropathy would recommend treatment for septic arthritis for 2 weeks of IV therapy followed by 2 weeks of PO therapy. - Should follow up in 2 weeks in my office - sent to [facility]. Thank you for the consult, we will continue to follow. Sharif Caballero MD [facility] ([facility]) M: [phone] O: [phone] F: [phone] Subjective Date of service: 12/18/18 Interval history: Ongoing pain in the elbow and wrist. No fevers. Leukocytosis stable. Objective - Exam Narrative Exam: Constitutional: Alert, cooperative. No acute distress Head, Ears, Nose: Normocephalic, atraumatic. External ears, nose normal Eyes: Conjunctivae/corneas clear. No icterus. No ptosis. Neck: Supple, no meningeal signs Oral: dentition fair, no thrush Cardiovascular: S1, S2 normal. Respiratory: Good air entry, clear to auscultation bilaterally GI: Soft, non-tender; bowel sounds normal. No peritoneal signs. Musculoskeletal: No pedal edema, no cyanosis. R wrist and elbow tender, decreased ROM, red Skin: No rash or abscess Hem/Lymphatic: No palpable cervical or supraclavicular nodes. No lymphangitis Psych: Mood ok. Affect normal Neurological: Awake, alert, oriented. No gross abnormality - Constitutional Vitals: Vital Signs Temp Pulse Resp BP Pulse Ox 98.7 F 83 18 116/63 100 12/18/18 07:08 12/18/18 09:54 12/18/18 09:15 12/18/18 09:54 12/18/18 07:08 Temperature -Last 24 Hours Temperature 98.7 F Temperature 98.3 F Temperature 98.8 F Temperature 98.0 F - Labs CBC & Chem 7: 12/17/18 04:34 12/17/18 04:34
--- NOTE | 2018-12-18 19:12 | Consultation ---
History of Present Illness - HPI Consult date: 12/18/18 Consult reason: joint pain History of present illness: 77 y/o male with c/o right elbow pain and swelling for past 1 week, denies hx of injury...Currently states elbow pain better now Past History Past Medical History: other (see hpi) Past Surgical History: No surgical history, Other (reviewed) Social history: single. denies: smoking, alcohol abuse, prescription drug abuse Family history: no significant family history (reviewed) Medications and Allergies Allergies Allergy/AdvReac Type Severity Reaction Status Date / Time No Known Allergies Allergy Verified 12/13/18 15:00 Home Medications Medication Instructions Recorded Confirmed Last Taken Type ALBUTEROL Inhaler (OR & NICU) 1 puff IH QID PRN #8.5 gram 12/29/18 Unknown Rx [ProAir HFA Inhaler] ALBUTEROL NEB's [Proventil 0.083% 2.5 mg IH Q4HRT PRN #120 nebu 12/29/18 Unknown Rx NEBS] Advair Diskus 250-50 mcg 1 each INHALATION BID #1 12/29/18 Unknown Rx Allopurinol 100 mg PO DAILY #90 12/29/18 Unknown Rx Amlodipine Besylate 10 mg PO DAILY #90 12/29/18 Unknown Rx Aspirin EC [Halfprin EC] 81 mg PO QDAY #90 tablet 12/29/18 Unknown Rx Cefdinir 300 mg PO BID #20 12/29/18 Unknown Rx Colchicine [Gloperba] 0.6 mg PO DAILY #90 12/29/18 Unknown Rx Combivent Inhaler 1 each IH Q6HR PRN #1 12/29/18 Unknown Rx Docusate Sodium [Colace CAP] 100 mg PO BID #60 capsule 12/29/18 Unknown Rx Multivitamin Tab W-MINERAL 1 each PO QDAY #90 tablet 12/29/18 Unknown Rx [Multiple Vitamin/Mineral (Theragran M)] Active Meds: Active Medications Acetaminophen (Tylenol) 650 mg PO Q4H PRN PRN Reason: Pain MILD(1-3)/Fever >100.5/[place] Last Admin: 12/16/18 00:23 Dose: 650 mg Documented by: Albuterol (Proventil) 2.5 mg IH Q4HRT PRN PRN Reason: Shortness Of Breath Allopurinol (Zyloprim) 100 mg PO QDAY [facility] Last Admin: 12/18/18 09:55 Dose: 100 mg Documented by: Amlodipine Besylate (Amlodipine) 10 mg PO DAILY [facility] Last Admin: 12/18/18 09:54 Dose: 10 mg Documented by: Arformoterol Tartrate (Brovana Nebu) 15 mcg IH Q12HRT [facility] Last Admin: 12/18/18 09:12 Dose: 15 mcg Documented by: Aspirin (Halfprin Ec) 81 mg PO QDAY [facility] Last Admin: 12/18/18 09:55 Dose: 81 mg Documented by: Budesonide (Pulmicort) 0.5 mg IH Q12HRT [facility] Last Admin: 12/18/18 09:12 Dose: 0.5 mg Documented by: Colchicine (Colchicine) 0.6 mg PO QDAY [facility] Last Admin: 12/18/18 09:54 Dose: 0.6 mg Documented by: Docusate Sodium (Colace) 100 mg PO BID [facility] Last Admin: 12/18/18 09:55 Dose: 100 mg Documented by: Ceftriaxone Sodium (Rocephin/Ns 2 Gm/100 Ml) 2 gm in 100 mls @ 200 mls/hr IV DAILY [facility]; Protocol Last Admin: 12/18/18 09:52 Dose: 200 mls/hr Documented by: Vancomycin HCl 1,250 mg/ (Sodium Chloride) 275 mls @ 166.667 mls/hr IV Q12H [facility] Last Admin: 12/18/18 11:01 Dose: 166.667 mls/hr Documented by: Magnesium Hydroxide (Milk Of Magnesia) 30 ml PO Q4H PRN PRN Reason: Constipation Last Admin: 12/18/18 10:07 Dose: 30 ml Documented by: Morphine Sulfate (Morphine) 2 mg IV Q4H PRN PRN Reason: Pain, Moderate (4-6) Last Admin: 12/16/18 12:54 Dose: 2 mg Documented by: Ondansetron HCl (Zofran) 4 mg IV Q8H PRN PRN Reason: Nausea And Vomiting Oxycodone/Acetaminophen (Percocet 5/325) 1 tab PO Q6H PRN PRN Reason: Pain, Moderate (4-6) Last Admin: 12/18/18 10:06 Dose: 1 tab Documented by: Sodium Chloride (Sodium Chloride Flush Syringe 10 Ml) 10 ml IV BID [facility] Last Admin: 12/18/18 09:56 Dose: 10 ml Documented by: Sodium Chloride (Sodium Chloride Flush Syringe 10 Ml) 10 ml IV PRN PRN PRN Reason: LINE FLUSH Last Admin: 12/14/18 19:46 Dose: 10 ml Documented by: Physical Examination - Physical exam Narrative exam: kkkkkkkkkkkkkkkkkkkkkkkkkkkkkkkkkkkkkkkkkkkkkkkkkkkkkkkkkkkk kkkkkkkkkkkkkkkkkkkkkkkkkkkkkkkkkkkkkkkkkkkkkkkkkkkkkkkkkkkkkkkkkkkkkkkkkkkkkkkk kkkkkkkkkkkkkkkkkkkkkkkkkkkkkkkkkkkkkkkkkkkkkkkkkkkkkkkkkkkkkkkkkkkkkkkkkkkkkkkk kkkkkkkkkkkkkkkkkkkkkkkkkkkkkkkkkkkkkkkk kkkkkkkkkkkkkkkkkkkkkkkkkkkkkkkkkkkkkkkkkkkkkkkkkkkkkkkkkkkkkkkkkkkkkkkkkkkkkkkk kkkkkkkkkkkkkkkkkkkkkkkkkkkkkkkkkkkkkkkkkkkkkkkkkkkkkkkkkkkkkkkkkkkkkkkkkkkkkkkk kkkkkkkkkkkkkkkkkkkkkkkkkkkkkkkkkkkkkkkk kkkkkkkkkkkkkkkkkkkkkkkkkkkkkkkkkkkkkkkkkkkkkkkkkkkkkkkkkkkkkkkkkkkkkkkkkkkkkkkk kkkkkkkkkkkkkkkkkkkkkkkkkkkkkkkkkkkkkkkkkkkkkkkkkkkkkkkkkkkkkkkkkkkkkkkkkkkkkkkk kkkkkk;;;;;;;;;;;;;;;;;;;;;;;;;;;;;;;;;; ;;;;;;;;;;;;;;;;;;;;;;;;;;;;;;;;;;;;;;;;;;;;;;;;;;;;;;;;;;;;;;;;;;;;;;;;;;;;;;;; ;;;;;;;;;;;;;;;;;;;;;;;;;;;;;;;;;;;;;;;;;;;;;;;;;;;;;;;;;;;;;;;;;;;;;;;;;;;;;;;; ;;;;;;;;;;;;;;;;;;;;;;;;;;;;;;;;;;;;;;;; ;;;;;;;;;;;;;;;;;;;;;;;;;;;;;;;;;;;;;;;;;;;;;;;;;;;;;;;;;;;;;;;;;;;;;;;;;;;;;;;; ;;;;;;;;;;;;;;;;;;;;;;;;;;;;;;;;;;;;;;;;;;;;;;;;;;;;;;;;;;;;;;;;;;;;;;;;;;;;;;;; ;;;;;;;;;;;;;;;;;;;;;;;;;;;;;;;;;;;;;;;; ;;;;;;;;;;;;;;;;;;;;;;;;;;;;;;;;;;;;;;;;;;;;;;;;;;;;;;;;;;;;;;;;;;;;;;;;;;;;;;;; ;;;;;;;;;;;;;;;;;;;;;;;;;;;;;;;;;;;;;;;;;;;;;;;;;;;;;;;;;;;;;;;;;;;;;;;;;;;;;;;; ;;;;;;;;;;;;;;;;;;;;;;;;;;;;;;;;;;;;;;;; ;;;;;;;;;;;;;;;;;;;;;;;;;;;;;;;;;;;;;;;;;;;;;;;;;;;;;;;;;;;;;;;;;;;;;;;;;;;;;;;; ;;;;;;;;;;;;;;;;;;;;;;;;;;;;;;;;;;;;;;;;;;;;;;;;;;;;;;;;;;;;;;;;;;;;;;;;;;;;;;;; ;;;;;;;;;;;;;;;;;;;;;;;;;;;;;;;;;;;;;;;; ;;;;;;;;;;;;;;;;;;;;;;;;;;;;;;;;;;;;;;;;;;;;;;;;;;;;;;;;;;;;;;;;;;;;;;;;;;;;;;;; ;;;;;;;;;;;;;;;;;;;;;;;;;;;;;;;;;;;;;;;;;;;;;;;;;;;;;;;;;;;;;;;;;;;;;;;;;;;;;;;; ;;;;;;;;;;;;;;;;;;;;;;;;;;;;;;;;;;;;;;;; ;;;;;;;;;;;;;;;;;;;;;;;;;;;;;;;;;;;;;;;;;;;;;;;;;;;;;;;;;;;;;;;;;;;;;;;;;;;;;;;; ;;;;;;;;;;;;;;;;;;;;;;;;;;;;;;;;;;;;;;;;;;;;;;;;;;;;;;;;;;;;;;;;;;;;;;;;;;;;;;;; ;;;;;;;;;;;;;;;;;;;;;;;;;;;;;;;;;;;;;;;; ;;;;;;;;;;;;;;;;;;;;;;;;;;;;;;;;;;;;;;;;;;;;;;;;;;;;;;;;;;;;;;;;;;;;;;;;;;;;;;;; ;;;;;;;;;;;;;;;;;;;;;;;;;;;;;;;;;;;;;;;;;;;;;;;;;;;;;;;;;;;;;;;;;;;;;;;;;;;;;;;; ;;;;;;;;;;;;;;;;;;;;;;;;;;;;;;;;;;;;;;;; ;;;;;;;;;;;;;;;;;;;;;;;;;;;;;;;;;;;;;;;;;;;;;;;;;;;;;;;;;;;;;;;;;;;;;;;;;;;;;;;; ;;;;;;;;;;;;;;;;;;;;;;;;;;;;;;;;;;;;;;;;;;;;;;;;;;;;;;;;;;;;;;;;;;;;;;;;;;;;;;;; ;;;;;;;;;;;;;;;;;;;;;;;;;;;;;;;;;;;;;;;; ;;;;;;;;;;;;;;;;;;;;;;;;;;;;;;;;;;;;;;;;;;;;;;;;;;;;;;;;;;;;;;;;;;;;;;;;;;;;;;;; ;;;;;;;;;;;;;;;;;;;;;;;;;;;;;;;;;;;;;;;;;;;;;;;;;;;;;;;;;;;;;;;;;;;;;;;;;;;;;;;; ;;;;;;;;;;;;;;;;;;;;;;;;;;;;;;;;;;;;;;;; ;;;;;;;;;;;;;;;;;;;;;;;;;;;;;;;;;;;;;;;;;;;;;;;;;;;;;;;;;;;;;;;;;;;;;;;;;;;;;;;; ;;;;;;;;;;;;;;;;;;;;;;;;;;;;;;;;;;;;;;;;jjjjjfffffffv ;Riiir;;;;;;;;;;;;;;;;;;;;;;;;;;;;;;;;;;;;;;;;;;;;;;;;;;;;;;;;;;;;;;;;;;;;;;;;;; ;;;;;;;;;;;;;;;;;;;;;;;;;;;;;;;; ;;;;;;;;;;;;;;;;;;;;;;;;;;;;;;;;;;;;;;;;;;;;;;;;;;;;;;;;;;;;;;;;;;;;;;;;;;;;;;;; ;;;;;;;;;;;;;;;;;;;;;;;;;;;;;;;;;;;;;;;;;;;;;;;;;;;;;;;;;;;;;;;;;;;;;;;;;;;;;;;; ;;;;;;;;;;;;;;;;;;;;;;;;;;;;;;;;;;;;;;;; ;;;;;;;;;;;;;;;;;;;;;;;;;;;;;;;;;;;;;;;;;;;;;;;;;;;;;;;;;;;;;;;;;;;;;;;;;;;;;;;; ;;;;;;;;;;;;;;;;;;;;;;;;;;;;;;;;;;;;;;;;;;;;;;;;;;;;;;;;;;;;;;;;;;;;;;;;;;;;;;;; ;;;;;;;;;;;;;;;;;;;;;;;;;;;;;;;;;;;;;;;; ;;;;;;;;;;;;;;;;;;;;;;;;;;;;;;;;;;;;;;;;;;;;;;;;;;;;;;;;;;;;;;;;;;;;;;;;;;;;;;;; ;;;;;;;;;;;;;;;;;;;;;;;;;;;;;;;;;;;;;;;;;;;;;;;;;;;;;;;;;;;;;;;;;;;;;;;;;;;;;;;; ;;;;;;;;;;;;;;;;;;;;;;;;;;;;;;;;;;;;;;;; ;;;;;;;;;;;;;;;;;;;;;;;;;;;;;;;;;;;;;;;;;;;;;;;;;;;;;;;;;;;;;;;;;;;;;;;;;;;;;;ss ssssssssssssssssssssssssssssssssssssssssssssssssssssssssssssssssssssssssssssssss ssssssssssssssssssssssssssssssssssssssss ssssssssssssssssssssssssssssssssssssssssssssssssssssssssssssssssssssssssssssssss ssssssssssssssssssssssssssssssssssssssssssssssssssssssssssssssssssssssssssssssss ssssssssssssssssssssssssssssssssssssssss ssssssssssssssssssssssssssssssssssssssssssssssssssssssssssssssssssssssssssssssss ssssssssssssssssssssssssssssssssssssssssssssssssssssssssssssssssssssssssssssssss ssssssssssssssssssssssssssssssssssssssss ssssssssssssssssssssssssssssssssssssssssssssssssssssssssssssssssssssssssssssssss ssssssssssssssssssssssssssssssssssssssssssssssssssssssssssssssssssssssssssssssss ssssssssssssssssssssssssssssssssssssssss ssssssssssssssssssssssssssssssssssssssssssssssssssssssssssssssssssssssssssssssss ssssssssssssssssssssssssssssssssssssssssssssssssssssssssssssssssssssssssssssssss ssssssssssssssssssssssssssssssssssssssss ssssssssssssssssssssssssssssssssssssssssssssssssssssssssssssssssssssssssssssssss ssssssssssssssssssssssssssssssssssssssssssssssssssssssssssssssssssssssssssssssss ssssssssssssssssssssssssssssssssssssssss ssssssssssssssssssssssssssssssssssssssssssssssssssssssssssssssssssssssssssssssss ssssssssssssssssssssssssssssssssssssssssssssssssssssssssssssssssssssssssssssssss ssssssssssssssssssssssssssssssssssssssss ssssssssssssssssssssssssssssssssssssssssssssssssssssssssssssssssssssssssssssssss ssssssssssssssssssssssssssssssssssssssssssssssssssssssssssssssssssssssssssss;;;; ;;;;;;;;;;;;;;;;;;;;;;;;;;;;;;;;;;;;;;;; ;;;;;;;;;;;;;;;;;;;;;;;;;;;;;;;;;;;;;;;;;;;;;;;;;;;;;;;;;;;;;;;;;;;;;;;;;;;;;;;; ;;;;;;;;;;;;;;;;;;;;;;;;;;;;;;;;;;;;;;;;;;;;;;;;;;;;;;;;;;;;;;;;;;;;;;;;;;;;;;;; ;;;;;;;;;;;;;;;;;;;;;;;;;;;;;;;;;;;;;;;; ;;;;;;;;;;;;;;;;;;;;;;;;;;;;;;;;;;;;;;;;;;;;;;;;;;;;;;;;;;;;;;;;;;;;;;;;;;;;;;;; ;;;;;;;;;;;;;;;;;;;;;;;;;;;;;;;;;;;;;;;;;;;;;;;;;;;;;;;;;;;;;;;;;;;;;;;;;;;;;;;; ;;;;;;;;;;;;;;;;;;;;;;;;;;;;;;;;;;;;;;;; ;;;;;;;;;;;;;;;;;;;;;;;;;;;;;;;;;;;;;;;;;;;;;;;;;;;;;;;;;;;;;;;;;;;;;;;;;;;;;;;; ;;;;;;;;;;;;;;;;;;;;;;;;;;;;;;;;;;;;;;;;;;;;;;;;;;;;;;;;;;;;;;;;;;;;;;;;;;;;;;;; ;;;;;;;;;;;;;;;;;;;;;;;;;;;;;;;;;;;;;;;; ;;;;;;;;;;;;;;;;;;;;;;;;;;;;;;;;;;;;;;;;;;;;;;;;;;;;;;;;;;;;;;;;;;;;;;;;;;;;;;;; ;;;;;;;;;;;;;;;;;;;;;;;;;;;;;;;;;;;;;;;;;;;;;;;;;;;;;;;;;;;;;;;;;;;;;;;;;;;;;;;; ;;;;;;;;;;;;;;;;;;;;;;;;;;;;;;;;;;;;;;;; ;;;;;;;;;;;;;;;;;;;;;;;;;;;;;;;;;;;;;;;;;;;;;;;;;;;;;;;;;;;;;;;;;;;;;;;;;;;;;;;; ;;;;;;;;;;;;;;;;;;;;;;;;;;;;;;;;;;;;;;;;;;;;;;;;;;;;;;;;;;;;;;;;;;;;;;;;;;;;;;;; ;;;;;;;;;;;;;;;;;;;;;;;;;;;;;;;;;;;;;;;; ;;;;;;;;;;;;;;;;;;;;;;;;;;;;;;;;;;;;;;;;;;;;;;;;;;;;;;;;;;;;;;;;;;;;;;;;;;;;;;;; ;;;;;;;;;;;;;;;;;;;;;;;;;;;;;;;;;;;;;;;;;;;;;;;;;;;;;;;;;;;;;;;;;;;;;;;;;;;;;;;; ;;;;;;;;;;;;;;;;;;;;;;;;;;;;;;;;;;;;;;;; ;;;;;;;;;;;;;;;;;;;;;;;;;;;;;;;;;;;;;;;;;;;;;;;;;;;;;;;;;;;;;;;;;;;;;;;;;;;;;;;; ;;;;;;;;;;;;;;;;;;;;;;;;;;;;;;;;;;;;;;;;;;;;;;;;;;;;;;;;;;;;;;;;;;;;;;;;;;;;;;;; ;;;;;;;;;;;;;;;;;;;;;;;;;;;;;;;;;;;;;;;; ;;;;;;;;;;;;;;;;;;;;;;;;;;;;;;;;;;;;;;;;;;;;;;;;;;;;;;;;;;;;;;;;;;;;;;;;;;;;;;;; ;;;;;;;;;;;;;;;;;;;;;;;;;;;;;;;;;;;;;;;;;;;;;;;;;;;;;;;;;;;;;;;;;;;;;;;;;;;;;;;; ;;;;;;;;;;;;;;;;;;;;;;;;;;;;;;;;;;;;;;;; ;;;;;;;;;;;;;;;;;;;;;;;;;;;;;;;;;;;;;;;;;;;;;;;;;;;;;;;;;;;;;;;;;;;;;;;;;;;;;;;; ;;;;;;;;;;;;;;;;;;;;;;;;;;;;;;;;;;;;;;;;;;;;;;;;;;;;;;;;;;;;;;;;;;;;;;;;;;;;;;;; ;;;;;;;;;;;;;;;;;;;;;;;;;;;;;;;;;;;;;;;; ;;;;;;;;;;;;;;;;;;;;;;;;;;;;;;;;;;;;;;;;;;;;;;;;;;;;;;;;;;;;;;;;;;;;;;;;;;;;;;;; ;;;;;;;;;;;;;;;;;;;;;;;;;;;;;;;;;;;;;;;;;;;;;;;;;;;;;;;;;;;;;;;;;;;;;;;;;;;;;;;; ;;;;;;;;;;;;;;;;;;;;;;;;;;;;;;;;;;;;;;;; ;;;;;;;;;;;;;;;;;;;;;;;;;;;;;;;;;;;;;;;;;;;;;;;;;;;;;;;;;;;;;;;;;;;;;;;;;;;;;;;; ;;;;;;;;;;;;;;;;;;;;;;;;;;;;;;;;;;;;;;;;;;;;;;;;;;;;;;;;;;;;;;;;;;;;;;;;;;;;;;;; ;;;;;;;;;;;;;;;;;;;;;;;;;;;;;;;;;;;;;;;; ;;;;;;;;;;;;;;;;;;;;;;;;;;;;;;;;;;;;;;;;;;;;;;;;;;;;;;;;;;;;;;;;;;;;;;;;;;;;;;;; ;;;;;;;;;;;;;;;;;;;;;;;;;;;;;;;;;;;;;;;;;;;;;;;;;;;;;;;;;;;;;;;;;;;;;;;;;;;;;;;; ;;;;;;;;;;;;;;;;;;;;;;;;;;;;;;;;;;;;;;;; ;;;;;;;;;;;;;;;;;;;;;;;;;;;;;;;;;;;;;;;;;;;;;;;;;;;;;;;;;;;;;;;;;;;;;;;;;;;;;;;; ;;;;;;;;;;;;;;;;;;;;;;;;;;;;;;;;;;;;;;;;;;;;;;;;;;;;;;;;;;;;;;;;;;;;;;;;;;;;;;;; ;;;;;;;;;;;;;;;;;;;;;;;;;;;;;;;;;;;;;;;; ;;;;;;;;;;;;;;;;;;;;;;;;;;;;;;;;;;;;;;;;;;;;;;;;;;;;;;;;;;;;;;;;;;;;;;;;;;;;;;;; ;;;;;;;;;;;;;;;;;;;;;;;;;;;;;;;;;;;;;;;;;;;;;;;;;;;;;;;;;;;;;;;;;;;;;;;;;;;;;;;; ;;;;;;;;;;;;;;;;;;;;;;;;;;;;;;;;;;;;;;;; ;;;;;;;;;;;;;;;;;;;;;;;;;;;;;;;;;;;;;;;;;;;;;;;;;;;;;;;;;;;;;;;;;;;;;;;;;;;;;;;; ;;;;;;;;;;;;;;;;;;;;;;;;;;;;;;;;;;;;;;;;;;;;;;;;;;;;;;;;;;;;;;;;;;;;;;;;;;;;;;;; ;;;;;;;;;;;;;;;;;;;;;;;;;;;;;;;;;;;;;;;; ;;;;;;;;;;;;;;;;;;;;;;;;;;;;;;;;;;;;;;;;;;;;;;;;;;;;;;;;;;;;;;;;;;;;;;;;;;;;;;;; ;;;;;;;;;;;;;;;;;;;;;;;;;;;;;;;;;;;;;;;;;;;;;;;;;;;;;;;;;;;;;;;;;;;;;;;;;;;;;;;; ;;;;;;;;;;;;;;;;;;;;;;;;;;;;;;;;;;;;;;;; ;;;;;;;;;;;;;;;;;;;;;;;;;;;;;;;;;;;;;;;;;;;;;;;;;;;;;;;;;;;;;;;;;;;;;;;;;;;;;;;; ;;;;;;;;;;;;;;;;;;;;;;;;;;;;;;;;;;;;;;;;;;;;;;;;;;;;;;;;;;;;;;;;;;;;;;;;;;;;;;;; ;;;;;;;;;;;;;;;;;;;;;;;;;;;;;;;;;;;;;;;; ;;;;;;;;;;;;;;;;;;;;;;;;;;;;;;;;;;;;;;;;;;;;;;;;;;;;;;;;;;;;;;;;;;;;;;;;;;;;;;;; ;;;;;;;;;;;;;;;;;;;;;;;;;;;;;;;;;;;;;;;;;;;;;;;;;;;;;;;;;;;;;;;;;;;;;;;;;;;;;;;; ;;;;;;;;;;;;;;;;;;;;;;;;;;;;;;;;;;;;;;;; ;;;;;;;;;;;;;;;;;;;;;;;;;;;;;;;;;;;;;;;;;;;;;;;;;;;;;;;;;;;;;;;;;;;;;;;;;;;;;;;; ;;;;;;;;;;;;;;;;;;;;;;;;;;;;;;;;;;;;;;;;;;;;;;;;;;;;;;;;;;;;;;;;;;;;;;;;;;;;;;;; ;;;;;;;;;;;;;;;;;;;;;;;;;;;;;;;;;;;;;;;; ;;;;;;;;;;;;;;;;;;;;;;;;;;;;;;;;;;;;;;;;;;;;;;;;;;;;;;;;;;;;;;;;;;;;;;;;;;;;;;;; ;;;;;;;;;;;;;;;;;;;;;;;;;;;;;;;;;;;;;;;;;;;;;;;;;;;;;;;;;;;;;;;;;;;;;;;;;;;;;;;; ;;;;;;;;;;;;;;;;;;;;;;;;;;;;;;;;;;;;;;;; ;;;;;;;;;;;;;;;;;;;;;;;;;;;;;;;;;;;;;;;;;;;;;;;;;;;;;;;;;;;;;;;;;;;;;;;;;;;;;;;; ;;;;;;;;;;;;;;;;;;;;;;;;;;;;;;;;;;;;;;;;;;;;;;;;;;;;;;;;;;;;;;;;;;;;;;;;;;;;;;;; ;;;;;;;;;;;;;;;;;;;;;;;;;;;;;;;;;;;;;;;; ;;;;;;;;;;;;;;;;;;;;;;;;;;;;;;;;;;;;;;;;;;;;;;;;;;;;;;;;;;;;;;;;;;;;;;;;;;;;;;;; ;;;;;;;;;;;;;;;;;;;;;;;;;;;;;;;;;;;;;;;;;;;;;;;;;;;;;;;;;;;;;;;;;;;;;;;;;;;;;;;; ;;;;;;;;;;;;;;;;;;;;;;;;;;;;;;;;;;;;;;;; ;;;;;;;;;;;;;;;;;;;;;;;;;;;;;;;;;;;;;;;;;;;;;;;;;;;;;;;;;;;;;;;;;;;;;;;;;;;;;;;; ;;;;;;;;;;;;;;;;;;;;;;;;;;;;;;;;;;;;;;;;;;;;;;;;;;;;;;;;;;;;;;;;;;;;;;;;;;;;;;;; ;;;;;;;;;;;;;;;;;;;;;;;;;;;;;;;;;;;;;;;; ;;;;;;;;;;;;;;;;;;;;;;;;;;;;;;;;;;;;;;;;;;;;;;;;;;;;;;;;;;;;;;;;;;;;;;;;;;;;;;;; ;;;;;;;;;;;;;;;;;;;;;;;;;;;;;;;;;;;;;;;;;;;;;;;;;;;;;;;;;;;;;;;;;;;;;;;;;;;;;;;; ;;;;;;;;;;;;;;;;;;;;;;;;;;;;;;;;;;;;;;;; ;;;;;;;;;;;;;;;;;;;;;;;;;;;;;;;;;;;;;;;;;;;;;;;;;;;;;;;;;;;;;;;;;;;;;;;;;;;;;;;; ;;;;;;;;;;;;;;;;;;;;;;;;;;;;;;;;;;;;;;;;;;;;;;;;;;;;;;;;;;;;;;;;;;;;;;;;;;;;;;;; ;;;;;;;;;;;;;;;;;;;;;;;;;;;;;;;;;;;;;;;; ;;;;;;;;;;;;;;;;;;;;;;;;;;;;;;;;;;;;;;;;;;;;;;;;;;;;;;;;;;;;;;;;;;;;;;;;;;;;;;;; ;;;;;;;;;;;;;;;;;;;;;;;;;;;;;;;;;;;;;;;;;;;;;;;;;;;;;;;;;;;;;;;;;;;;;;;;;;;;;;;; ;;;;;;;;;;;;;;;;;;;;;;;;;;;;;;;;;;;;;;;; ;;;;;;;;;;;;;;;;;;;;;;;;;;;;;;;;;;;;;;;;;;;;;;;;;;;;;;;;;;;;;;;;;;;;;fffffffffff ffffffffffffffffffffffffffffffffffffffffffffffffffffffffffffffffffffffffffffffff ffffffffffffffffffffffffffffffffffffffff ffffffffffffffffffffffffffffffffffffffffffffffffffffffffffffffffffffffffffffffff ffffffffffffffffffffffffffffffffffffffffffffffffffffffffffffffffffffffffffffffff ffffffffffffffffffffffffffffffffffffffff ffffffffffffffffffffffffffffffffffffffffffffffffffffffffffffffffffffffffffffffff ffffffffffffffffffffffffffffffffffffffffffffffffffffffffffffffffffffffffffffffff ffffffffffffffffffffffffffffffffffffffff ffffffffffffffffffffffffffffffffffffffffffffffffffffffffffffffffffffffffffffffff ffffffffffffffffffffffffffffffffffffffffffffffffffffffffffffffffffffffffffffffff ffffffffffffffffffffffffffffffffffffffff ffffffffffffffffffffffffffffffffffffffffffffffffffffffffffffffffffffffffffffffff ffffffffffffffffffffffffffffffffffffffffffffffffffffffffffffffffffffffffffffffff ffffffffffffffffffffffffffffffffffffffff ffffffffffffffffffffffffffffffffffffffffffffffffffffffffffffffffffffffffffffffff ffffffffffffffffffffffffffffffffffffffffffffffffffffffffffffffffffffffffffffffff ffffffffffffffffffffffffffffffffffffffff ffffffffffffffffffffffffffffffffffffffffffffffffffffffffffffffffffffffffffffffff ffffffffffffffffffffffffffffffffffffffffffffffffffffffffffffffffffffffffffffffff ffffffffffffffffffffffffffffffffffffffff ffffffffffffffffffffffffffffffffffffffffffffffffffffffffffffffffffffffffffffffff ffffffffffffffffffffffffffffffffffffffffffffffffffffffffffffffffffffffffffffffff ffffffffffffffffffffffffffffffffffffffff ffffffffffffffffffffffffffffffffffffffffffffffffffffffffffffffffffffffffffffffff ffffffffffffffffffffffffffffffffffffffffffffffffffffffffffffffffffffffffffffffff fffffffffffffffffffffffffffff;;;;;;;;;;; ;;;;;;;;;;;;;;;;;;;;;;;;;;;;;;;;;;;;;;;;;;;;;;;;;;;;;;;;;;;;;;;;;;;;;;;;;;;;;;;; ;;;;;;;;;;;;;;;;;;;;;;;;;;;;;;;;;;;;;;;;;;;;;;;;;;;;;;;;;;;;;;;;;;;;;;;;;;;;;;;; ;;;;;;;;;;;;;;;;;;;;;;;;;;;;;;;;;;;;;;;; ;;;;;;;;;;;;;;;;;;;;;;;;;;;;;;;;;;;;;;;;;;;;;;;;;;;;;;;;;;;;;;;;;;;;;;;;;;;;;;;; ;;;;;;;;;;;;;;;;;;;;;;;;;;;;;;;;;;;;;;;;;;;;;;;;;;;;;;;;;;;;;;;;;;;;;;;;;;;;;;;; ;;;;;;;;;;;;;;;;;;;;;;;;;;;;;;;;;;;;;;;; ;;;;;;;;;;;;;;;;;;;;;;;;;;;;;;;;;;;;;;;;;;;;;;;;;;;;;;;;;;;;;;;;;;;;;;;;;;;;;;;; ;;;;;;;;;;;;;;;;;;;;;;;;;;;;;;;;;;;;;;;;;;;;;;;;;;;;;;;;;;;;;;;;;;;;;;;;;;;;;;;; ;;;;;;;;;;;;;;;;;;;;;;;;;;;;;;;;;;;;;;;; ;;;;;;;;;;;;;;;;;;;;;;;;;;;;;;;;;;;;;;;;;;;;;;;;;;;;;;;;;;;;;;;;;;;;;;;;;;;;;;;; ;;;;;;;;;;;;;;;;;;;;;;;;;;;;;;;;;;;;;;;;;;;;;;;;;;;;;;;;;;;;;;;;;;;;;;;;;;;;;;;; ;;;;;;;;;;;;;;;;;;;;;;;;;;;;;;;;;;;;;;;; ;;;;;;;;;;;;;;;;;;;;;;;;;;;;;;;;;;;;;;;;;;;;;;;;;;;;;;;;;;;;;;;;;;;;;;;;;;;;;;;; ;;;;;;;;;;;;;;;;;;;;;;;;;;;;;;;;;;;;;;;;;;;;;;;;;;;;;;;;;;;;;;;;;;;;;;;;;;;;;;;; ;;;;;;;;;;;;;;;;;;;;;;;;;;;;;;;;;;;;;;;; ;;;;;;;;;;;;;;;;;;;;;;;;;;;;;;;;;;;;;;;;;;;;;;;;;;;;;;;;;;;;;;;;;;;;;;;;;;;;;;;; ;;;;;; Eyes: PERRL ENT: Positive: clear oral mucosa Respiratory effort: normal Respiratory: bilateral: CTA Rhythm: regular Heart Sounds: Positive: S1 & S2 General gastrointestinal: Positive: soft, non-tender, non-distended, normal bowel sounds Integumentary: clear, warm, dry Neurologic: Positive: CNII-XII intact, moves all extremities, gait normal. Negative: focal deficits - Cervical Spine Neck pain: none Tenderness with palpation: none Full ROM: yes ROM: flexion: normal ROM: extension: normal ROM: rotation right: normal ROM: rotation left: normal ROM: lateral flexion right: normal ROM: lateral flexion left: normal - Lumbar Spine Back pain: none Tenderness with palpation: none Appearance: normal Full ROM: yes ROM: flexion: normal ROM: extension: normal ROM: rotation right: normal ROM: rotation left: normal ROM: lateral flexion right: normal ROM: lateral flexion left: normal Assessment and Plan right elbow pain, resolved recommendation - ROM & STR exercises right upper extremity
[2018-12-19] MEDS: BUDESONIDE 0.5 MG/2 ML NEBU IH SCH ×2 (08:07→22:08)
[2018-12-19] MEDS: ARFORMOTEROL 15 MCG/2 ML NEBU IH SCH ×2 (08:07→22:08)
[2018-12-19] MEDS: DOCUSATE SODIUM 100 MG CAP PO SCH ×3 (09:38→21:48)
[2018-12-19] MEDS: cefTRIAXone/NS 2 GM/100 ML 2 GM/100 ML BAG IV SCH (09:39)
[2018-12-19] MEDS: ASPIRIN EC 81 MG TAB PO SCH (09:39)
[2018-12-19] MEDS: COLCHICINE 0.6 MG CAP PO SCH (09:39)
[2018-12-19] MEDS: allopurinoL 100 MG TAB PO SCH (09:39)
[2018-12-19] MEDS: amLODIPine 10 MG TAB PO SCH (09:40)
[2018-12-19] MEDS: VANCOMYCIN 1,250 MG in SODIUM CHLORIDE 0.9% 250ML 250 ML IV SCH ×3 (11:15→22:56)
[2018-12-19] MEDS: oxyCODONE /ACETAMINOPHEN 5-325MG TAB PO PRN ×2 (11:19→21:48)
--- NOTE | 2018-12-19 11:24 | XRay Report ---
CHEST 1 VIEW INDICATION: L arm PICC placement. COMPARISON: None FINDINGS: Support devices: The left arm PICC terminates in the lower SVC near the cavoatrial junction. Heart: Within normal limits. Lungs/Pleura: No acute air space or interstitial disease. Additional findings: None. IMPRESSION: No acute findings. Adequate PICC placement. Signer Name: Vasyl Caicedo Jr, MD Signed: 12/19/2018 11:19 AM Workstation Name: [id number]
--- NOTE | 2018-12-19 11:59 | Progress Note ---
Assessment and Plan Assessment and plan: --Sepsis-POA, leukocytosis tachycardia documented low-grade fevers Secondary to septic arthritis, on IV antibiotics, ID following --SEPTIC Arthritis; IV antibiotics, Ortho evaluated the patient Unable to get a moderate due to shrapnel fragments in the body ID recommended 4 weeks of IV antibiotics Orthopedic evaluated, did not recommend arthrocentesis --CML-AML; outpatient follow-up with hematology oncology --Metabolic Acidosis; significantly improved --ANEMIA of chronic illness; closely monitor H&H Transfuse as needed --Hyponatremia-sodium levels trending up --Acute Cystitis; empiric antibiotics follow cultures --Debility; physical therapy occupational therapy supportive care --Tranaminitis; trending down closely monitor --Constipation; stool softener milk of magnesia If no improvement in edema DC planning per case management; setting up IV antibiotics Awaiting insurance pre-CERT/approval Patient is stable for discharge. History Interval history: Patient seen and examined medical records reviewed Patient feels slightly better No new complaints Vital signs noted Hospitalist Physical - Constitutional Vitals: Temp Pulse Resp BP Pulse Ox 97.6 F 83 18 122/70 100 12/19/18 08:00 12/19/18 09:40 12/19/18 08:09 12/19/18 09:40 12/19/18 08:00 General appearance: Present: no acute distress, well-nourished - EENT Eyes: Present: PERRL, EOM intact - Neck Neck: Present: supple, normal ROM - Respiratory Respiratory effort: normal Respiratory: bilateral: diminished, negative: rales, rhonchi, wheezing - Cardiovascular Rhythm: regular Heart Sounds: Present: S1 & S2 - Extremities Extremities: no ischemia, No edema, abnormal (Elbow swelling) - Abdominal General gastrointestinal: soft, non-tender, non-distended, normal bowel sounds - Integumentary Integumentary: Present: clear, warm - Psychiatric Psychiatric: appropriate mood/affect, cooperative - Neurologic Neurologic: CNII-XII intact, moves all extremities Results - Labs CBC & Chem 7: 12/17/18 04:34 12/17/18 04:34 Labs: Laboratory Last Values WBC 15.4 K/mm3 (4.5-11.0) H 12/17/18 04:34 RBC 2.87 M/mm3 (3.65-5.03) L 12/17/18 04:34 Hgb 7.5 gm/dl (11.8-15.2) L 12/17/18 04:34 Hct 24.1 % (35.5-45.6) L 12/17/18 04:34 MCV 84 fl (84-94) 12/17/18 04:34 MCH 26 pg (28-32) L 12/17/18 04:34 MCHC 31 % (32-34) L 12/17/18 04:34 RDW 22.2 % (13.2-15.2) H 12/17/18 04:34 Plt Count 87 K/mm3 (140-440) L 12/17/18 04:34 [place] % (Auto) Journalism Teacher 12/14/18 04:05 Add Manual Diff Complete 12/14/18 04:05 Total Counted 100 12/14/18 04:05 Seg Neutrophils % Journalism Teacher 12/13/18 15:05 Seg Neuts % (Manual) 47.0 % (40.0-70.0) 12/14/18 04:05 Band Neutrophils % 0 % 12/14/18 04:05 Lymphocytes % (Manual) 9.0 % (13.4-35.0) L 12/14/18 04:05 Reactive Lymphs % (Man) 0 % 12/14/18 04:05 Monocytes % (Manual) 44.0 % (0.0-7.3) H 12/14/18 04:05 Eosinophils % (Manual) 0 % (0.0-4.3) 12/14/18 04:05 Basophils % (Manual) 0 % (0.0-1.8) 12/14/18 04:05 Metamyelocytes % 0 % 12/14/18 04:05 Myelocytes % 0 % 12/14/18 04:05 Promyelocytes % 0 % 12/14/18 04:05 Blast Cells % 0 % 12/14/18 04:05 Nucleated RBC % Not Reportable 12/14/18 04:05 Seg Neutrophils # Man 8.3 K/mm3 (1.8-7.7) H 12/14/18 04:05 Band Neutrophils # 0.0 K/mm3 12/14/18 04:05 Lymphocytes # (Manual) 1.6 K/mm3 (1.2-5.4) 12/14/18 04:05 Abs React Lymphs (Man) 0.0 K/mm3 12/14/18 04:05 Monocytes # (Manual) 7.7 K/mm3 (0.0-0.8) H 12/14/18 04:05 Eosinophils # (Manual) 0.0 K/mm3 (0.0-0.4) 12/14/18 04:05 Basophils # (Manual) 0.0 K/mm3 (0.0-0.1) 12/14/18 04:05 Metamyelocytes # 0.0 K/mm3 12/14/18 04:05 Myelocytes # 0.0 K/mm3 12/14/18 04:05 Promyelocytes # 0.0 K/mm3 12/14/18 04:05 Blast Cells # 0.0 K/mm3 12/14/18 04:05 Pathologist Review 12/13/18 15:05 WBC Morphology Not Reportable 12/14/18 04:05 Hypersegmented Neuts Not Reportable 12/14/18 04:05 Hyposegmented Neuts Not Reportable 12/14/18 04:05 Hypogranular Neuts Not Reportable 12/14/18 04:05 Smudge Cells Not Reportable 12/14/18 04:05 Toxic Granulation Not Reportable 12/14/18 04:05 Toxic Vacuolation Not Reportable 12/14/18 04:05 Dohle Bodies Not Reportable 12/14/18 04:05 Pelger-Huet Anomaly Not Reportable 12/14/18 04:05 Willow Rods Not Reportable 12/14/18 04:05 Platelet Estimate Consistent w auto 12/14/18 04:05 Clumped Platelets Not Reportable 12/14/18 04:05 Plt Clumps, EDTA Not Reportable 12/14/18 04:05 Large Platelets Not Reportable 12/14/18 04:05 Giant Platelets Not Reportable 12/14/18 04:05 Platelet Satelliting Not Reportable 12/14/18 04:05 Plt Morphology Comment Not Reportable 12/14/18 04:05 RBC Morphology Not Reportable 12/14/18 04:05 Dimorphic RBCs Not Reportable 12/14/18 04:05 Polychromasia Not Reportable 12/14/18 04:05 Hypochromasia Not Reportable 12/14/18 04:05 Poikilocytosis Not Reportable 12/14/18 04:05 Anisocytosis Not Reportable 12/14/18 04:05 Microcytosis Not Reportable 12/14/18 04:05 Macrocytosis Not Reportable 12/14/18 04:05 Spherocytes Not Reportable 12/14/18 04:05 Pappenheimer Bodies Not Reportable 12/14/18 04:05 Sickle Cells Not Reportable 12/14/18 04:05 Target Cells 1+ 12/14/18 04:05 Tear Drop Cells Not Reportable 12/14/18 04:05 Ovalocytes Not Reportable 12/14/18 04:05 Helmet Cells Not Reportable 12/14/18 04:05 [place] Bodies Not Reportable 12/14/18 04:05 Beasley Rings Not Reportable 12/14/18 04:05 Rene Cells Not Reportable 12/14/18 04:05 Bite Cells Not Reportable 12/14/18 04:05 Crenated Cell Not Reportable 12/14/18 04:05 Elliptocytes Not Reportable 12/14/18 04:05 Acanthocytes (Spur) Not Reportable 12/14/18 04:05 Rouleaux Not Reportable 12/14/18 04:05 Hemoglobin C Crystals Not Reportable 12/14/18 04:05 Schistocytes Few 12/14/18 04:05 Malaria parasites Not Reportable 12/14/18 04:05 ESR > 140.0 mm/Hr (0-20) 12/13/18 17:46 Terry Bodies Not Reportable 12/14/18 04:05 Hem Pathologist Commnt Sent to pathology 12/14/18 04:05 Sodium 133 mmol/L (137-145) L 12/17/18 04:34 Potassium 4.1 mmol/L (3.6-5.0) 12/17/18 04:34 Chloride 98.3 mmol/L (98-107) 12/17/18 04:34 Carbon Dioxide 20 mmol/L (22-30) L 12/17/18 04:34 Anion Gap 19 mmol/L 12/17/18 04:34 BUN 10 mg/dL (9-20) 12/17/18 04:34 Creatinine 0.7 mg/dL (0.8-1.5) L 12/17/18 04:34 Estimated GFR > 60 ml/min 12/17/18 04:34 BUN/Creatinine Ratio 14 % 12/17/18 04:34 Glucose 91 mg/dL (75-100) 12/17/18 04:34 POC Glucose 118 (70-105) H 12/14/18 23:15 Lactic Acid 0.60 mmol/L (0.7-2.0) L 12/13/18 21:28 Uric Acid 5.1 mg/dL (3.5-7.6) 12/14/18 08:22 Calcium 9.1 mg/dL (8.4-10.2) 12/17/18 04:34 Magnesium 2.10 mg/dL (1.7-2.3) 12/13/18 17:46 Total Bilirubin 0.60 mg/dL (0.1-1.2) 12/17/18 04:34 Direct Bilirubin 0.3 mg/dL (0-0.2) H 12/13/18 16:36 Indirect Bilirubin 0.3 mg/dL 12/13/18 16:36 AST 45 units/L (5-40) H 12/17/18 04:34 ALT 81 units/L (7-56) H 12/17/18 04:34 Alkaline Phosphatase 126 units/L (35-129) 12/17/18 04:34 Total Creatine Kinase 142 units/L (55-170) 12/13/18 17:46 C-Reactive Protein 25.30 mg/dL (0.00-1.30) H 12/13/18 17:46 Total Protein 8.0 g/dL (6.3-8.2) 12/17/18 04:34 Albumin 3.1 g/dL (3.9-5) L 12/17/18 04:34 Albumin/Globulin Ratio 0.6 % 12/17/18 04:34 Urine Color Yellow (Yellow) 12/13/18 Unknown Urine Turbidity Slightly-cloudy (Clear) 12/13/18 Unknown Urine pH 5.0 (5.0-7.0) 12/13/18 Unknown Ur Specific [place] 1.014 (1.003-1.030) 12/13/18 Unknown Urine Protein <15 mg/dl mg/dL (Negative) 12/13/18 Unknown Urine Glucose (UA) Neg mg/dL (Negative) 12/13/18 Unknown Urine Ketones Tr mg/dL (Negative) 12/13/18 Unknown Urine Blood Mod (Negative) 12/13/18 Unknown Urine Nitrite Neg (Negative) 12/13/18 Unknown Urine Bilirubin Neg (Negative) 12/13/18 Unknown Urine Urobilinogen < 2.0 mg/dL (<2.0) 12/13/18 Unknown Ur Leukocyte Esterase Lg (Negative) 12/13/18 Unknown Urine WBC (Auto) 52.0 /HPF (0.0-6.0) H 12/13/18 Unknown Urine RBC (Auto) 20.0 /HPF (0.0-6.0) 12/13/18 Unknown U Epithel Cells (Auto) < 1.0 /HPF (0-13.0) 12/13/18 Unknown Urine Bacteria (Auto) 2+ /HPF (Negative) 12/13/18 Unknown Urine Mucus Few /HPF 12/13/18 Unknown Urine Yeast (Budding) 1+ /HPF 12/13/18 Unknown Vancomycin Trough 15.9 ug/mL (5.0-20.0) 12/17/18 23:11 Blood Type B POSITIVE 12/13/18 15:05 Antibody Screen Negative 12/13/18 15:05 Active Medications - Current Medications Current Medications: Generic Name Dose Route Start Last Admin Trade Name Freq PRN Reason Stop Dose Admin Acetaminophen 650 mg 12/13/18 18:19 12/16/18 00:23 Tylenol PO 650 mg Q4H PRN Administration Pain MILD(1-3)/Fever >100.5/[place] Albuterol 2.5 mg 12/13/18 18:19 Proventil IH Q4HRT PRN Shortness Of Breath Allopurinol 100 mg 12/14/18 10:00 12/19/18 09:39 Zyloprim PO 100 mg QDAY STEVE Administration Amlodipine Besylate 10 mg 12/14/18 10:00 12/19/18 09:40 Amlodipine PO 10 mg DAILY STEVE Administration Arformoterol Tartrate 15 mcg 12/13/18 20:00 12/19/18 08:07 Brovana Nebu IH 15 mcg Q12HRT STEVE Administration Aspirin 81 mg 12/14/18 10:00 12/19/18 09:39 Halfprin Ec PO 81 mg QDAY STEVE Administration Budesonide 0.5 mg 12/13/18 20:00 12/19/18 08:07 Pulmicort IH 0.5 mg Q12HRT STEVE Administration Colchicine 0.6 mg 12/14/18 10:00 12/19/18 09:39 Colchicine PO 0.6 mg QDAY STEVE Administration Docusate Sodium 100 mg 12/16/18 10:00 12/19/18 09:38 Colace PO 100 mg BID STEVE Administration Ceftriaxone Sodium 2 gm in 100 mls @ 200 mls/hr 12/14/18 10:00 12/19/18 09:39 Rocephin/Ns 2 Gm/100 Ml IV 200 mls/hr DAILY STEVE Administration Protocol Vancomycin HCl 1,250 mg/ 275 mls @ 166.667 mls/hr 12/15/18 11:30 12/19/18 11:16 Sodium Chloride IV 166.667 mls/hr Q12H STEVE Administration Magnesium Hydroxide 30 ml 12/16/18 07:54 12/18/18 10:07 Milk Of Magnesia PO 30 ml Q4H PRN Administration Constipation Morphine Sulfate 2 mg 12/13/18 19:27 12/16/18 12:54 Morphine IV 2 mg Q4H PRN Administration Pain, Moderate (4-6) Ondansetron HCl 4 mg 12/13/18 18:19 Zofran IV Q8H PRN Nausea And Vomiting Oxycodone/Acetaminophen 1 tab 12/13/18 19:27 12/19/18 11:19 Percocet 5/325 PO 1 tab Q6H PRN Administration Pain, Moderate (4-6) Sodium Chloride 10 ml 12/13/18 22:00 12/19/18 09:39 Sodium Chloride Flush Syringe 10 Ml IV 10 ml BID STEVE Administration Sodium Chloride 10 ml 12/13/18 18:19 12/14/18 19:46 Sodium Chloride Flush Syringe 10 Ml IV 10 ml PRN PRN Administration LINE FLUSH
--- NOTE | 2018-12-19 14:33 | Progress Note ---
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 1. Sepsis - present on admission with leukocytosis and tachycardia. Had low grade temps but no fevers documented. Likely secondary to septic arthritis. 2. Septic arthritis - pending ortho eval and possible joint tap. MRI not possible due to metallic shrapnel fragment. Would continue vancomycin and ceftriaxone for now. If tap performed please send for culture. Leukocytosis may not be reliable indicator given cancer. Possibly due to gout, arthrocentesis would be beneficial. 3. 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 COPD Recs: - continue vancomycin dosed per pharmacy, goal trough 15-20 - continue ceftriaxone 2g q24h - no arthrocentesis performed. in the absence of convincing data to suggest a crystal arthropathy would recommend treatment for septic arthritis for 2 weeks of IV therapy followed by 2 weeks of PO therapy. - PICC ordered - case management consulted - Should follow up in 2 weeks in my office - sent to ticket scheduler. Thank you for the consult, we will continue to follow. Sharif Caballero MD [facility] ([facility]) M: [phone] O: [phone] F: [phone] Subjective Date of service: 12/19/18 Interval history: Ongoing pain in the elbow and wrist. No fevers. Leukocytosis stable. Objective - Exam Narrative Exam: Constitutional: Alert, cooperative. No acute distress Head, Ears, Nose: Normocephalic, atraumatic. External ears, nose normal Eyes: Conjunctivae/corneas clear. No icterus. No ptosis. Neck: Supple, no meningeal signs Oral: dentition fair, no thrush Cardiovascular: S1, S2 normal. Respiratory: Good air entry, clear to auscultation bilaterally GI: Soft, non-tender; bowel sounds normal. No peritoneal signs. Musculoskeletal: No pedal edema, no cyanosis. R wrist and elbow tender, decreased ROM, red Skin: No rash or abscess Hem/Lymphatic: No palpable cervical or supraclavicular nodes. No lymphangitis Psych: Mood ok. Affect normal Neurological: Awake, alert, oriented. No gross abnormality - Constitutional Vitals: Vital Signs Temp Pulse Resp BP Pulse Ox 97.6 F 83 18 122/70 100 12/19/18 08:00 12/19/18 09:40 12/19/18 08:09 12/19/18 09:40 12/19/18 08:00 Temperature -Last 24 Hours Temperature 97.6 F Temperature 97.6 F - Labs CBC & Chem 7: 12/17/18 04:34 12/17/18 04:34
[2018-12-20] MEDS: ARFORMOTEROL 15 MCG/2 ML NEBU IH SCH (09:00)
[2018-12-20] MEDS: BUDESONIDE 0.5 MG/2 ML NEBU IH SCH (09:00)
--- NOTE | 2018-12-20 10:31 | Progress Note ---
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 1. Sepsis - present on admission with leukocytosis and tachycardia. Had low grade temps but no fevers documented. Likely secondary to septic arthritis. 2. Septic arthritis - pending ortho eval and possible joint tap. MRI not possible due to metallic shrapnel fragment. Would continue vancomycin and ceftriaxone for now. If tap performed please send for culture. Leukocytosis may not be reliable indicator given cancer. Possibly due to gout, arthrocentesis would be beneficial. 3. 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 COPD Recs: - continue vancomycin dosed per pharmacy, goal trough 15-20 - continue ceftriaxone 2g q24h - no arthrocentesis performed. in the absence of convincing data to suggest a crystal arthropathy would recommend treatment for septic arthritis for 2 weeks of IV therapy followed by 2 weeks of PO therapy. - PICC ordered - case management consulted - Should follow up in 2 weeks in my office - sent to battery plate assembler. - ok for discharge from infectious disease perspective. Thank you for the consult, we will continue to follow. Sharif Caballero MD [facility] ([facility]) M: [phone] O: [phone] F: [phone] Subjective Date of service: 12/20/18 Interval history: Afebrile, improved elbow pain. Objective - Exam Narrative Exam: Constitutional: Alert, cooperative. No acute distress Head, Ears, Nose: Normocephalic, atraumatic. External ears, nose normal Eyes: Conjunctivae/corneas clear. No icterus. No ptosis. Neck: Supple, no meningeal signs Oral: dentition fair, no thrush Cardiovascular: S1, S2 normal. Respiratory: Good air entry, clear to auscultation bilaterally GI: Soft, non-tender; bowel sounds normal. No peritoneal signs. Musculoskeletal: No pedal edema, no cyanosis. R wrist and elbow tender, decreased ROM, red Skin: No rash or abscess Hem/Lymphatic: No palpable cervical or supraclavicular nodes. No lymphangitis Psych: Mood ok. Affect normal Neurological: Awake, alert, oriented. No gross abnormality - Constitutional Vitals: Vital Signs Temp Pulse Resp BP Pulse Ox 98.4 F 79 18 136/64 100 12/20/18 02:43 12/20/18 09:00 12/20/18 09:00 12/20/18 02:43 12/20/18 02:43 Temperature -Last 24 Hours Temperature 98.4 F Temperature 99.5 F Temperature 98.7 F - Labs CBC & Chem 7: 12/17/18 04:34 12/17/18 04:34
[2018-12-20] MEDS: allopurinoL 100 MG TAB PO SCH (10:50)
[2018-12-20] MEDS: ASPIRIN EC 81 MG TAB PO SCH (10:50)
[2018-12-20] MEDS: COLCHICINE 0.6 MG CAP PO SCH (10:50)
[2018-12-20] MEDS: DOCUSATE SODIUM 100 MG CAP PO SCH (10:50)
[2018-12-20] MEDS: cefTRIAXone/NS 2 GM/100 ML 2 GM/100 ML BAG IV SCH (10:50)
[2018-12-20] MEDS: amLODIPine 10 MG TAB PO SCH (10:51)
[2018-12-20] MEDS: VANCOMYCIN 1,250 MG in SODIUM CHLORIDE 0.9% 250ML 250 ML IV SCH (11:18)
[2018-12-20] MEDS: oxyCODONE /ACETAMINOPHEN 5-325MG TAB PO PRN (11:31)
[2018-12-20] MEDS ORDERED: SIMETHICONE 80 MG CHEW TAB PO PRN (14:12)
[2018-12-20 14:27] VITALS: BP 122/56
--- NOTE | 2018-12-20 15:37 | Discharge Summary ---
Providers - Providers Date of Admission: 12/13/18 18:19 Date of discharge: 12/20/18 Attending physician: PHOENIX SIN 12/13/18 17:09 Consult to Physician [CONS] Urgent Comment: called office/ reunka Consulting Provider: KEREN AVINA Physician Instructions: Reason For Exam: multi joint paion 12/13/18 19:27 Physical Therapy Evaluation and Treat [CONS] Routine Comment: Reason For Exam: weakness 12/14/18 07:56 Consult to Physician [CONS] Routine Comment: Consulting Provider: RU CABALLERO Physician Instructions: Reason For Exam: SEPSIS 12/17/18 14:17 Occupational Therapy Evaluate and Treat [CONS] Urgent Comment: Reason For Exam: General Weakness 12/18/18 12:43 PICC Line Insertion [Consult to PICC Line RN] [CONS] Routine Reason For Exam: FDC antibiotics Type Line:: PICC 12/18/18 12:50 Consult to Case Management [CONS] Routine Services Needed at Discharge: Home Health Services Notified:: Zaida Additional Physician Instructions: [facility] ([facility]) M: [phone] O: [phone] F: [phone] OUTPATIENT PARENTERAL ANTIBIOTIC THERAPY ORDERS Diagnosis: Septic arthritis Antimicrobial administration: ceftriaxone 2g q24h and vancomycin 1250mg q12h until 12/29/18 Line: PICC or midline Lab monitoring: CBC with diff, BUN, creatinine, LFTs, vanc trough once per week preferably on Monday mornings. Please fax results to [phone] and call [phone] Caballero 11/23/2018 Primary care physician: ICT SALES ASSISTANT Hospitalization Reason for admission: Polyarthritis/septic arthritis Condition: Fair Pertinent studies: Rt Wrist xray Rt.Elbow xray CXR Hospital course: 77 YO Male Assisted Living Facility Resident with Debility, CML, COPD, Cardiomyopathy, CAD S/P Stent Placement present to ED for evaluation. Pt states that he has experienced generalized weakness over the past 1 week with worsening symptoms over the same time frame. Pt also reports /poly arthritisRt wrist and elbow pain with worsening symptoms over the past 2 days. Pt states that pain is 8/10, and limits his ability to use his Rt arm.work up was consistant with septic arthritis. Evaluated by orthopedic and ID.ID recommend 4 weeks of antibiotics.Patient received PICC line,Case management set up SNF placement. Today patient is comfortable,no new complaints. Cleared by ID and Ortho. Stable at discharge. Discharge Diagnosis: --Sepsis-POA, leukocytosis tachycardia documented low-grade fevers Secondary to septic arthritis, on IV antibiotics, ID following --SEPTIC Arthritis/Polyarthritis; IV antibiotics, Ortho evaluated the patient Unable to get a moderate due to shrapnel fragments in the body ID recommended 4 weeks of IV antibiotics Orthopedic evaluated, did not recommend arthrocentesis --CML-AML; outpatient follow-up with hematology oncology --Metabolic Acidosis; significantly improved --ANEMIA of chronic illness; closely monitor H&H Transfuse as needed --Hyponatremia-sodium levels trending up --Severe malnutrition; hypoalbuminemia Nutrition supplements and supportive --Acute Cystitis; empiric antibiotics follow cultures --Debility; physical therapy occupational therapy supportive care --Tranaminitis; trending down closely monitor --Constipation; stool softener milk of magnesia If no improvement in edema DC planning per case management; setting up IV antibiotics Awaiting insurance pre-CERT/approval Patient is stable for discharge. Disposition: DC/[place]-03 SNF [facility] CERT Time spent for discharge: 32 min Core Measure Documentation - Palliative Care Palliative Care/ Comfort Measures: Not Applicable - Core Measures Any of the following diagnoses?: none Exam - Constitutional Vitals: Temp Pulse Resp BP Pulse Ox 98.4 F 71 18 122/56 100 12/20/18 13:46 12/20/18 13:46 12/20/18 13:46 12/20/18 13:46 12/20/18 13:46 General appearance: Present: no acute distress, well-nourished - EENT Eyes: Present: PERRL, EOM intact - Neck Neck: Present: supple, normal ROM - Respiratory Respiratory effort: normal Respiratory: bilateral: diminished, negative: rales, rhonchi, wheezing - Cardiovascular Rhythm: regular Heart Sounds: Present: S1 & S2 - Extremities Extremities: no ischemia, abnormal (rt elbow swelling) - Abdominal General gastrointestinal: Present: soft, non-tender, non-distended, normal bowel sounds - Integumentary Integumentary: Present: clear, warm - Musculoskeletal Musculoskeletal: strength equal bilaterally - Psychiatric Psychiatric: appropriate mood/affect, cooperative - Neurologic Neurologic: CNII-XII intact, moves all extremities Plan Activity: advance as tolerated, fall precautions Diet: regular Additional Instructions: 13 days of IV vancomycin 1,250 [goal trough 15-25]. and 13days of Rocephin 2gms IV daily. Follow with infectious diseases in 10-14 days for oral antibiotics Follow up with: PRIMARY CAREMD [Primary Care Provider] - 3-5 Days KEREN AVINA MD [Staff Physician] - 7 Days RU CABALLERO MD [Staff Physician] - 14 Days Prescriptions: oxyCODONE /ACETAMINOPHEN [Percocet 5/325 mg] 1 tab PO Q6H PRN #14 tablet PRN Reason: Pain, Moderate (4-6) ALBUTEROL Inhaler (OR & NICU) [ProAir HFA Inhaler] 1 puff IH QID PRN #8.5 gram PRN Reason: Shortness Of Breath
== END 2018-12-20 18:55 | DRG 871 ==
LOC: ED 14:29 → 2B-ACE 18:19
PROVIDERS: ADMIT Internal Medicine; ATTEND Internal Medicine
PROC: 05HY33Z Insertion of Infusion Device into Upper Vein, Percutaneous Approach (ICD-10-PCS; principal; 2018-12-19)
DX: A41.9 Sepsis, unspecified organism (principal); E43 Unspecified severe protein-calorie malnutrition; E87.1 Hypo-osmolality and hyponatremia; M00.9 Pyogenic arthritis, unspecified; C92.00 Acute myeloblastic leukemia, not having achieved remission; N30.00 Acute cystitis without hematuria; I42.9 Cardiomyopathy, unspecified; D63.8 Anemia in other chronic diseases classified elsewhere; R53.81 Other malaise; R74.0 Nonspecific elevation of levels of transaminase and lactic acid dehydrogenase [LDH]; K59.00 Constipation, unspecified; J44.9 Chronic obstructive pulmonary disease, unspecified; I25.10 Atherosclerotic heart disease of native coronary artery without angina pectoris; I10 Essential (primary) hypertension; M13.0 Polyarthritis, unspecified; D69.6 Thrombocytopenia, unspecified; Z68.22 Body mass index [BMI] 22.0-22.9, adult; Z95.5 Presence of coronary angioplasty implant and graft; Z79.82 Long term (current) use of aspirin; Z79.899 Other long term (current) drug therapy
CPT/HCPCS: 36415; 71045; 80048; 80053; 80076; 80202; 81001; 82140; 82271; 82550; 82962; 83735; 84550; 85007; 85025; 85027; 85652; 86140; 86850; 86900; 86901; 87040; 87086; 93005; 93010; 94640; 96365; 96366; 96375; G0378; J0696; J1885; J2270; J2405; J3370; J7030; J7040; J7050

== ENCOUNTER 2018-12-24 14:20 | Inpatient (IN) | payer MEDICARE ==
--- NOTE | 2018-12-24 15:27 | Emergency Department Report ---
ED General Adult HPI - General Stated complaint: LOW HEMOGLOBIN Time Seen by Provider: 12/24/18 15:17 Source: patient, EMS - History of Present Illness Initial comments: Patient is 78-year-old male with history of hypertension, asthma and recent diagnosis of septic arthritis. Patient was seen in the ER and admitted to the hospital for sepsis secondary to arthritis and patient is currently on IV antibiotic. Patient brought to the emergency room via EMS from a alf facility for evaluation of an abnormal hemoglobin. EMS stated that alf told them that his hemoglobin was 6.7 . labs was drawn today. Patient currently denying any symptoms. Specifically patient denied hematemesis, hematochezia, melena, hemoptysis or hematuria. Patient denies any chest pain or shortness of breath. - Related Data Home Medications Medication Instructions Recorded Confirmed Last Taken Advair Diskus 250-50 mcg 50 mcg INHALATION BID 12/13/18 12/13/18 Unknown Amlodipine Besylate 10 mg PO DAILY 12/13/18 12/13/[address] 81 mg PO DAILY 12/13/18 12/13/18 Unknown Cefdinir 300 mg PO BID 12/13/18 12/13/18 Unknown Previous Rx's Medication Instructions Recorded Last Taken Type oxyCODONE /ACETAMINOPHEN [Percocet 1 tab PO Q6H PRN #14 tablet 12/17/18 Unknown Rx 5/325 mg] ALBUTEROL Inhaler (OR & NICU) 1 puff IH QID PRN #8.5 gram 12/20/18 Unknown Rx [ProAir HFA Inhaler] Arformoterol Nebu [Brovana Nebu] 15 mcg IH Q12HRT ml 12/20/18 Unknown Rx Aspirin EC [Halfprin EC] 81 mg PO QDAY tablet 12/20/18 Unknown Rx Budesonide [Pulmicort Respules] 0.5 mg IH Q12HRT nebu 12/20/18 Unknown Rx Docusate Sodium [Colace CAP] 100 mg PO BID capsule 12/20/18 Unknown Rx Allergies Allergy/AdvReac Type Severity Reaction Status Date / Time No Known Allergies Allergy Verified 12/13/18 15:00 ED Review of Systems ROS: Stated complaint: LOW HEMOGLOBIN Other details as noted in HPI Comment: All other systems reviewed and negative Constitutional: denies: chills, fever Respiratory: denies: cough, shortness of breath Cardiovascular: denies: chest pain, palpitations Gastrointestinal: denies: abdominal pain, nausea, vomiting Neurological: denies: headache, weakness ED Past Medical Hx - Past Medical History Hx Hypertension: Yes Hx Deep Vein Thrombosis: No Hx Arthritis: Yes Hx Asthma: Yes - Surgical History Hx Pacemaker: No Hx Internal Defibrillator: No - Social History Smoking Status: Never Smoker Substance Use Type: None - Medications Home Medications: Home Medications Medication Instructions Recorded Confirmed Last Taken Type Advair Diskus 250-50 mcg 50 mcg INHALATION BID 12/13/18 12/13/18 Unknown History Amlodipine Besylate 10 mg PO DAILY 12/13/18 12/13/18 Unknown History Aspirin EC DR 81 mg PO DAILY 12/13/18 12/13/18 Unknown History Cefdinir 300 mg PO BID 12/13/18 12/13/18 Unknown History oxyCODONE /ACETAMINOPHEN [Percocet 1 tab PO Q6H PRN #14 tablet 12/17/18 Unknown Rx 5/325 mg] ALBUTEROL Inhaler (OR & NICU) 1 puff IH QID PRN #8.5 gram 12/20/18 Unknown Rx [ProAir HFA Inhaler] Arformoterol Nebu [Brovana Nebu] 15 mcg IH Q12HRT ml 12/20/18 Unknown Rx Aspirin EC [Halfprin EC] 81 mg PO QDAY tablet 12/20/18 Unknown Rx Budesonide [Pulmicort Respules] 0.5 mg IH Q12HRT nebu 12/20/18 Unknown Rx Docusate Sodium [Colace CAP] 100 mg PO BID capsule 12/20/18 Unknown Rx ED Physical Exam - General General appearance: alert, in no apparent distress - Head Head exam: Present: atraumatic, normocephalic, normal inspection - Eye Eye exam: Present: normal appearance - ENT ENT exam: Present: normal exam, normal orophraynx, mucous membranes moist - Neck Neck exam: Present: normal inspection, full ROM. Absent: tenderness, meningismus, lymphadenopathy, thyromegaly - Respiratory Respiratory exam: Present: normal lung sounds bilaterally - Cardiovascular Cardiovascular Exam: Present: regular rate, normal rhythm, normal heart sounds - GI/Abdominal GI/Abdominal exam: Present: soft, normal bowel sounds. Absent: distended, tenderness, guarding, rebound, rigid, hyperactive bowel sounds, hypoactive bowel sounds, organomegaly, mass, bruit, pulsatile mass, hernia - Extremities Exam Extremities exam: Present: normal inspection, full ROM, normal capillary refill - Back Exam Back exam: Present: normal inspection, full ROM. Absent: CVA tenderness (R), CVA tenderness (L), muscle spasm, paraspinal tenderness, vertebral tenderness - Neurological Exam Neurological exam: Present: alert, oriented X3, CN II-XII intact, normal gait, reflexes normal - Psychiatric Psychiatric exam: Present: normal mood - Skin Skin exam: Present: warm, intact, normal color ED Course Vital Signs 12/24/18 15:41 Temperature 98.7 F Pulse Rate 72 Respiratory 17 Rate Blood Pressure 120/57 O2 Sat by Pulse 99 Oximetry ED Medical Decision Making - Lab Data Result diagrams: 12/24/18 17:04 12/24/18 17:04 - Medical Decision Making Patient is 78-year-old male with history of hypertension, asthma and recent diagnosis of septic arthritis. Patient was seen in the ER and admitted to the hospital for sepsis secondary to arthritis and patient is currently on IV a ntibiotic. Patient brought to the emergency room via EMS from a alf facility for evaluation of an abnormal hemoglobin. EMS stated that alf told them that his hemoglobin was 6.7 . labs was drawn today. Patient currently denying any symptoms. Specifically patient denied hematemesis, hematochezia, melena, hemoptysis or hematuria. Patient denies any chest pain or shortness of breath. An remained stable in the ER. Hemoglobin 6.4. Patient received 1 units of PRBC. I discussed the patient with Dr. Krueger he agreed to admit the patient to medical service. Critical Care Time: Yes Critical care time in (mins) excluding proc time.: 30 Critical care attestation.: If time is entered above; I have spent that time in minutes in the direct care of this critically ill patient, excluding procedure time. ED Disposition Clinical Impression: CML (chronic myelocytic leukemia), Acute anemia Disposition: OP ADMIT IP TO THIS HOSP Is pt being admited?: Yes Condition: Stable Referrals: DINH JORGENSEN MD [Referring] - 3-5 Days
--- NOTE | 2018-12-24 16:17 | Cat Scan Report ---
CT HEAD WITHOUT CONTRAST HISTORY: head injury. TECHNIQUE: Axial imaging performed from the skull apex through the skull base without the use of con trast. All CT scans at this location are performed using CT dose reduction for ALARA by means of aut omated exposure control. COMPARISON: None FINDINGS: Parenchyma: No acute intracranial hemorrhage or parenchymal abnormality.. Mild hypoattenuation thro ughout the white matter is noted and consistent with chronic microvascular ischemic disease. Ventricles: There is mild diffuse brain atrophy with commensurate ventricular enlargement which is l ikely age appropriate. Soft tissues: Soft tissues including the orbits appear normal. Bones: No acute osseous abnormality. Sinuses: Sinuses and mastoid air cells are clear. IMPRESSION: No acute abnormality. Signer Name: Vasyl Caicedo Jr, MD Signed: 12/24/2018 4:12 PM Workstation Name: [id number]
[2018-12-24 17:19] LABS: Hematocrit 20.6 % (35.5-45.6); Hemoglobin 6.4 gm/dl (11.8-15.2); Mean Corpuscular HGB Conc 31 % (32-34); Mean Corpuscular Volume 85 fl (84-94); Red Blood Count 2.42 M/mm3 (3.65-5.03)
[2018-12-24 17:26] LABS: Platelet Count 78 K/mm3 (140-440); Red Cell Distribution Width 23.5 % (13.2-15.2)
[2018-12-24 17:30] LABS: INR 1.41 (0.87-1.13)
[2018-12-24 17:31] LABS: Partial Thromboplastin Time 36.2 Sec. (24.2-36.6)
[2018-12-24] MEDS ORDERED: SODIUM CHLORIDE 0.9% 500 ML 500 ML IV ONE ×2 (17:38→22:48)
[2018-12-24 17:40] LABS: Alanine Aminotransferase 36 units/L (7-56); Albumin 2.8 g/dL (3.9-5); BUN/Creatinine Ratio 9; Blood Urea Nitrogen 7 mg/dL (9-20); Calcium 8.6 mg/dL (8.4-10.2); Hemolysis Index 0
[2018-12-24 18:31] LABS: Basophils % (Manual) 0 % (0.0-1.8); Eosinophils % (Manual) 0 % (0.0-4.3); Myelocytes # (Manual) 0.2 K/mm3; Total Cells Counted 100
[2018-12-24 18:32] LABS: Anisocytosis 2+; Platelet Estimate Consistent w Auto
[2018-12-24 20:06] LABS: Bacteria,Urine 2+ /HPF (Negative); Bilirubin,Urine NEG (Negative); Blood,Urine SM (Negative); Color,Urine Yellow (Yellow); Mucus,Urine FEW /HPF; Urobilinogen,Urine < 2.0 mg/dL (<2.0)
[2018-12-24] MEDS ORDERED: ALBUTEROL 8.5 GM INHALATION IH PRN (22:38)
[2018-12-24] MEDS ORDERED: ONDANSETRON 4 MG/2 ML INJ IV PRN (22:42)
[2018-12-24] MEDS ORDERED: ACETAMINOPHEN 325 MG TAB PO PRN (22:42)
[2018-12-24] MEDS ORDERED: ADVAIR INHALATION SCH (22:45)
[2018-12-24] MEDS ORDERED: ALBUTEROL 2.5 MG/3 ML NEBU IH PRN (22:56)
[2018-12-24] MEDS: oxyCODONE /ACETAMINOPHEN 5-325MG TAB PO PRN (23:12)
[2018-12-24] MEDS: ZOLPIDEM 5 MG TAB PO PRN (23:12)
--- NOTE | 2018-12-25 01:43 | History and Physical Report ---
History of Present Illness Date of examination: 12/24/18 Date of admission: 12/24/18 18:22 Chief complaint: Low Hemoglobin level History of present illness: 78-year-old male with history of hypertension, asthma and recent diagnosis of septic arthritis on oral abx sent from [place] for low Hb of 6.4.No tarry stools or Hematemesis.No Nsaid use.No fever or chills. Past Medical History Hypertension: Yes Deep Vein Thrombosis: No Arthritis: Yes Asthma: Yes Surgical History Hx Pacemaker: No Hx Internal Defibrillator: No Social History Smoking Status: Never Smoker Substance Use Type: None Family History Htn Medications Home Medications: Home Medications Medication Instructions Recorded Confirmed Last Taken Type Advair Diskus 250-50 mcg 50 mcg INHALATION BID 12/13/18 12/13/18 Unknown History Amlodipine Besylate 10 mg PO DAILY 12/13/18 12/13/18 Unknown History Aspirin EC DR 81 mg PO DAILY 12/13/18 12/13/18 Unknown History Cefdinir 300 mg PO BID 12/13/18 12/13/18 Unknown History oxyCODONE /ACETAMINOPHEN [Percocet 1 tab PO Q6H PRN #14 tablet 12/17/18 Unknown Rx 5/325 mg] ALBUTEROL Inhaler (OR & NICU) 1 puff IH QID PRN #8.5 gram 12/20/18 Unknown Rx [ProAir HFA Inhaler] Arformoterol Nebu [Brovana Nebu] 15 mcg IH Q12HRT ml 12/20/18 Unknown Rx Aspirin EC [Halfprin EC] 81 mg PO QDAY tablet 12/20/18 Unknown Rx Budesonide [Pulmicort Respules] 0.5 mg IH Q12HRT nebu 12/20/18 Unknown Rx Docusate Sodium [Colace CAP] 100 mg PO BID capsule 12/20/18 Unknown Rx Review of Systems ROS: Stated complaint: LOW HEMOGLOBIN Other details as noted in HPI Comment: All other systems reviewed and negative Constitutional: denies: chills, fever Respiratory: denies: cough, shortness of breath Cardiovascular: denies: chest pain, palpitations Gastrointestinal: denies: abdominal pain, nausea, vomiting Neurological: denies: headache, weakness Medications and Allergies Allergies Allergy/AdvReac Type Severity Reaction Status Date / Time No Known Allergies Allergy Verified 12/13/18 15:00 Home Medications Medication Instructions Recorded Confirmed Last Taken Type Advair Diskus 250-50 mcg 50 mcg INHALATION BID 12/13/18 12/13/18 Unknown History Amlodipine Besylate 10 mg PO DAILY 12/13/18 12/13/18 Unknown History Aspirin EC DR 81 mg PO DAILY 12/13/18 12/13/18 Unknown History Cefdinir 300 mg PO BID 12/13/18 12/13/18 Unknown History oxyCODONE /ACETAMINOPHEN [Percocet 1 tab PO Q6H PRN #14 tablet 12/17/18 Unknown Rx 5/325 mg] ALBUTEROL Inhaler (OR & NICU) 1 puff IH QID PRN #8.5 gram 12/20/18 Unknown Rx [ProAir HFA Inhaler] Arformoterol Nebu [Brovana Nebu] 15 mcg IH Q12HRT ml 12/20/18 Unknown Rx Aspirin EC [Halfprin EC] 81 mg PO QDAY tablet 12/20/18 Unknown Rx Budesonide [Pulmicort Respules] 0.5 mg IH Q12HRT nebu 12/20/18 Unknown Rx Docusate Sodium [Colace CAP] 100 mg PO BID capsule 12/20/18 Unknown Rx Active Meds: Active Medications Acetaminophen (Tylenol) 650 mg PO Q4H PRN PRN Reason: Pain MILD(1-3)/Fever >100.5/[place] Albuterol (Proventil) 2.5 mg IH Q4HRT PRN PRN Reason: Shortness Of Breath Amlodipine Besylate (Amlodipine) 10 mg PO DAILY STEVE Arformoterol Tartrate (Brovana Nebu) 15 mcg IH Q12HRT STEVE Aspirin (Halfprin Ec) 81 mg PO QDAY STEVE Budesonide (Pulmicort) 0.5 mg IH Q12HRT STEVE Docusate Sodium (Colace) 100 mg PO BID STEVE Hydromorphone HCl (Dilaudid) 0.5 mg IV Q3H PRN PRN Reason: Pain , Severe (7-10) Ceftriaxone Sodium (Rocephin/Ns 2 Gm/100 Ml) 2 gm in 100 mls @ 200 mls/hr IV Q24HR STEVE; Protocol Ondansetron HCl (Zofran) 4 mg IV Q8H PRN PRN Reason: Nausea And Vomiting Oxycodone/Acetaminophen (Percocet 5/325) 1 tab PO Q6H PRN PRN Reason: Pain, Moderate (4-6) Last Admin: 12/24/18 23:12 Dose: 1 tab Documented by: Sodium Chloride (Sodium Chloride Flush Syringe 10 Ml) 10 ml IV BID STEVE Sodium Chloride (Sodium Chloride Flush Syringe 10 Ml) 10 ml IV PRN PRN PRN Reason: LINE FLUSH Zolpidem Tartrate (Ambien) 5 mg PO QHS PRN PRN Reason: Insomnia Last Admin: 12/24/18 23:12 Dose: 5 mg Documented by: Exam - Constitutional Vitals: Temp Pulse Resp BP Pulse Ox 98.5 F 76 18 119/56 99 12/24/18 21:45 12/24/18 22:55 12/24/18 23:39 12/24/18 21:45 12/24/18 22:55 General appearance: Present: no acute distress, well-nourished - EENT Eyes: Present: PERRL ENT: hearing intact, clear oral mucosa - Neck Neck: Present: supple, normal ROM - Respiratory Respiratory effort: normal Respiratory: bilateral: CTA - Cardiovascular Heart rate: 78 Rhythm: regular Heart Sounds: Present: S1 & S2. Absent: rub, click - Extremities Extremities: no ischemia, pulses intact, pulses symmetrical, No edema Peripheral Pulses: within normal limits - Abdominal General gastrointestinal: Present: soft, non-tender, non-distended, normal bowel sounds Male genitourinary: Present: normal - Rectal Rectal Exam: deferred - Integumentary Integumentary: Present: clear, warm, dry - Musculoskeletal Musculoskeletal: gait normal, strength equal bilaterally - Psychiatric Psychiatric: appropriate mood/affect, intact judgment & insight - Neurologic Neurologic: CNII-XII intact, moves all extremities - Allied Health Allied health notes reviewed: nursing, case management Results - Labs CBC & Chem 7: 12/24/18 17:04 12/24/18 17:04 Labs: Laboratory Last Values WBC 10.5 K/mm3 (4.5-11.0) 12/24/18 17:04 RBC 2.42 M/mm3 (3.65-5.03) L 12/24/18 17:04 Hgb 6.4 gm/dl (11.8-15.2) L 12/24/18 17:04 Hct 20.6 % (35.5-45.6) L 12/24/18 17:04 MCV 85 fl (84-94) 12/24/18 17:04 MCH 27 pg (28-32) L 12/24/18 17:04 MCHC 31 % (32-34) L 12/24/18 17:04 RDW 23.5 % (13.2-15.2) H 12/24/18 17:04 Plt Count 78 K/mm3 (140-440) L 12/24/18 17:04 [place] % (Auto) Media Buyer 12/24/18 17:04 Add Manual Diff Complete 12/24/18 17:04 Total Counted 100 12/24/18 17:04 Seg Neutrophils % Media [employer]er 12/24/18 17:04 Seg Neuts % (Manual) 61.0 % (40.0-70.0) 12/24/18 17:04 Band Neutrophils % 0 % 12/24/18 17:04 Lymphocytes % (Manual) 26.0 % (13.4-35.0) 12/24/18 17:04 Reactive Lymphs % (Man) 0 % 12/24/18 17:04 Monocytes % (Manual) 11.0 % (0.0-7.3) H 12/24/18 17:04 Eosinophils % (Manual) 0 % (0.0-4.3) 12/24/18 17:04 Basophils % (Manual) 0 % (0.0-1.8) 12/24/18 17:04 Metamyelocytes % 0 % 12/24/18 17:04 Myelocytes % 2 % 12/24/18 17:04 Promyelocytes % 0 % 12/24/18 17:04 Blast Cells % 0 % 12/24/18 17:04 Nucleated RBC % Not Reportable 12/24/18 17:04 Seg Neutrophils # Man 6.4 K/mm3 (1.8-7.7) 12/24/18 17:04 Band Neutrophils # 0.0 K/mm3 12/24/18 17:04 Lymphocytes # (Manual) 2.7 K/mm3 (1.2-5.4) 12/24/18 17:04 Abs React Lymphs (Man) 0.0 K/mm3 12/24/18 17:04 Monocytes # (Manual) 1.2 K/mm3 (0.0-0.8) H 12/24/18 17:04 Eosinophils # (Manual) 0.0 K/mm3 (0.0-0.4) 12/24/18 17:04 Basophils # (Manual) 0.0 K/mm3 (0.0-0.1) 12/24/18 17:04 Metamyelocytes # 0.0 K/mm3 12/24/18 17:04 Myelocytes # 0.2 K/mm3 12/24/18 17:04 Promyelocytes # 0.0 K/mm3 12/24/18 17:04 Blast Cells # 0.0 K/mm3 12/24/18 17:04 WBC Morphology Not Reportable 12/24/18 17:04 Hypersegmented Neuts Not Reportable 12/24/18 17:04 Hyposegmented Neuts Not Reportable 12/24/18 17:04 Hypogranular Neuts Not Reportable 12/24/18 17:04 Smudge Cells Not Reportable 12/24/18 17:04 Toxic Granulation Not Reportable 12/24/18 17:04 Toxic Vacuolation Not Reportable 12/24/18 17:04 Dohle Bodies Not Reportable 12/24/18 17:04 Pelger-Huet Anomaly Not Reportable 12/24/18 17:04 Willow Rods Not Reportable 12/24/18 17:04 Platelet Estimate Consistent w auto 12/24/18 17:04 Clumped Platelets Not Reportable 12/24/18 17:04 Plt Clumps, EDTA Not Reportable 12/24/18 17:04 Large Platelets Not Reportable 12/24/18 17:04 Giant Platelets Not Reportable 12/24/18 17:04 Platelet Satelliting Not Reportable 12/24/18 17:04 Plt Morphology Comment Not Reportable 12/24/18 17:04 RBC Morphology Not Reportable 12/24/18 17:04 Dimorphic RBCs Not Reportable 12/24/18 17:04 Polychromasia Not Reportable 12/24/18 17:04 Hypochromasia Not Reportable 12/24/18 17:04 Poikilocytosis Not Reportable 12/24/18 17:04 Anisocytosis 2+ 12/24/18 17:04 Microcytosis Not Reportable 12/24/18 17:04 Macrocytosis Not Reportable 12/24/18 17:04 Spherocytes Not Reportable 12/24/18 17:04 Pappenheimer Bodies Not Reportable 12/24/18 17:04 Sickle Cells Not Reportable 12/24/18 17:04 Target Cells Not Reportable 12/24/18 17:04 Tear Drop Cells Not Reportable 12/24/18 17:04 Ovalocytes Not Reportable 12/24/18 17:04 Helmet Cells Not Reportable 12/24/18 17:04 [place] Bodies Not Reportable 12/24/18 17:04 [place] Rings Not Reportable 12/24/18 17:04 Onyx Cells Not Reportable 12/24/18 17:04 Bite Cells Not Reportable 12/24/18 17:04 Crenated Cell Not Reportable 12/24/18 17:04 Elliptocytes Not Reportable 12/24/18 17:04 Acanthocytes (Spur) Not Reportable 12/24/18 17:04 Rouleaux Not Reportable 12/24/18 17:04 Hemoglobin C Crystals Not Reportable 12/24/18 17:04 Schistocytes Not Reportable 12/24/18 17:04 Malaria parasites Not Reportable 12/24/18 17:04 Terry Bodies Not Reportable 12/24/18 17:04 Hem Pathologist Commnt No 12/24/18 17:04 PT 17.1 Sec. (12.2-14.9) H 12/24/18 17:04 INR 1.41 (0.87-1.13) H 12/24/18 17:04 APTT 36.2 Sec. (24.2-36.6) 12/24/18 17:04 Sodium 137 mmol/L (137-145) 12/24/18 17:04 Potassium 3.7 mmol/L (3.6-5.0) 12/24/18 17:04 Chloride 100.6 mmol/L (98-107) 12/24/18 17:04 Carbon Dioxide 25 mmol/L (22-30) 12/24/18 17:04 Anion Gap 15 mmol/L 12/24/18 17:04 BUN 7 mg/dL (9-20) L 12/24/18 17:04 Creatinine 0.8 mg/dL (0.8-1.5) 12/24/18 17:04 Estimated GFR > 60 ml/min 12/24/18 17:04 BUN/Creatinine Ratio 9 % 12/24/18 17:04 Glucose 95 mg/dL (75-100) 12/24/18 17:04 Calcium 8.6 mg/dL (8.4-10.2) 12/24/18 17:04 Total Bilirubin 0.30 mg/dL (0.1-1.2) 12/24/18 17:04 AST 21 units/L (5-40) 12/24/18 17:04 ALT 36 units/L (7-56) 12/24/18 17:04 Alkaline Phosphatase 82 units/L (35-129) 12/24/18 17:04 Total Protein 7.0 g/dL (6.3-8.2) 12/24/18 17:04 Albumin 2.8 g/dL (3.9-5) L 12/24/18 17:04 Albumin/Globulin Ratio 0.7 % 12/24/18 17:04 Urine Color Yellow (Yellow) 12/24/18 19:17 Urine Turbidity Cloudy (Clear) 12/24/18 19:17 Urine pH 6.0 (5.0-7.0) 12/24/18 19:17 Ur Specific [place] 1.014 (1.003-1.030) 12/24/18 19:17 Urine Protein 30 mg/dl mg/dL (Negative) 12/24/18 19:17 Urine Glucose (UA) Neg mg/dL (Negative) 12/24/18 19:17 Urine Ketones Neg mg/dL (Negative) 12/24/18 19:17 Urine Blood Sm (Negative) 12/24/18 19:17 Urine Nitrite Neg (Negative) 12/24/18 19:17 Urine Bilirubin Neg (Negative) 12/24/18 19:17 Urine Urobilinogen < 2.0 mg/dL (<2.0) 12/24/18 19:17 Ur Leukocyte Esterase Sm (Negative) 12/24/18 19:17 Urine WBC (Auto) 39.0 /HPF (0.0-6.0) H 12/24/18 19:17 Urine RBC (Auto) 13.0 /HPF (0.0-6.0) 12/24/18 19:17 U Epithel Cells (Auto) 1.0 /HPF (0-13.0) 12/24/18 19:17 Urine Bacteria (Auto) 2+ /HPF (Negative) 12/24/18 19:17 Urine Mucus Few /HPF 12/24/18 19:17 Urine Yeast (Budding) 3+ /HPF 12/24/18 19:17 Blood Type B POSITIVE 12/24/18 17:05 Antibody Screen Negative 12/24/18 17:05 Crossmatch See Detail 12/24/18 17:05 Short CBC 12/24/18 Range/Units 17:04 WBC 10.5 (4.5-11.0) K/mm3 Hgb 6.4 L (11.8-15.2) gm/dl Hct 20.6 L (35.5-45.6) % Plt Count 78 L (140-440) K/mm3 BMP 12/24/18 17:04 Sodium 137 Potassium 3.7 Chloride 100.6 Carbon Dioxide 25 BUN 7 L Creatinine 0.8 Glucose 95 Calcium 8.6 Liver Function 12/24/18 Range/Units 17:04 Total Bilirubin 0.30 (0.1-1.2) mg/dL AST 21 (5-40) units/L ALT 36 (7-56) units/L Alkaline Phosphatase 82 (35-129) units/L Albumin 2.8 L (3.9-5) g/dL Urine 12/24/18 Range/Units 19:17 Urine Color Yellow (Yellow) Urine pH 6.0 (5.0-7.0) Ur Specific [place] 1.014 (1.003-1.030) Urine Protein 30 mg/dl (Negative) mg/dL Urine Glucose (UA) Neg (Negative) mg/dL - Imaging and Cardiology CT Scan - head: report reviewed (NAF) Assessment and Plan Advance Directives: Yes (Full code) VTE prophylaxis?: Chemical Plan of care discussed with patient/family: Yes - Patient Problems (1) Acute anemia Current Visit: Yes Status: Acute Plan to address problem: Transfuse one to 2 units of PRBC Severe iron deficiency expected b/c of low mcv and MCHC Check iron levels (2) UTI (urinary tract infection) Current Visit: No Status: Acute Qualifiers: Encounter type: initial encounter Plan to address problem: On Ceftriaxone pending cultures (3) Malnutrition Current Visit: Yes Status: Chronic Qualifiers: Protein-calorie malnutrition severity: moderate Plan to address problem: Dietitian consult (4) HTN (hypertension) Current Visit: Yes Status: Chronic Qualifiers: Hypertension type: essential hypertension Qualified Code(s): I10 - Essential (primary) hypertension Plan to address problem: Cont antihypertensives (5) Asthma Current Visit: Yes Status: Chronic Qualifiers: Asthma severity: unspecified severity Plan to address problem: Inhalers prn (6) DVT prophylaxis Current Visit: No Status: Acute Plan to address problem: On SCD's and GI prophylaxis
[2018-12-25 05:44] LABS: Hematocrit 25.7 % (35.5-45.6); Hemoglobin 8.2 gm/dl (11.8-15.2); Mean Corpuscular HGB Conc 32 % (32-34); Mean Corpuscular Volume 85 fl (84-94); Red Blood Count 3.02 M/mm3 (3.65-5.03)
[2018-12-25 05:45] LABS: Platelet Count 81 K/mm3 (140-440); Red Cell Distribution Width 20.9 % (13.2-15.2)
[2018-12-25 06:07] LABS: Alanine Aminotransferase 35 units/L (7-56); Albumin 2.8 g/dL (3.9-5); BUN/Creatinine Ratio 11; Blood Urea Nitrogen 9 mg/dL (9-20); Calcium 8.4 mg/dL (8.4-10.2); Hemolysis Index 15
[2018-12-25 06:29] LABS: % Iron Saturation 15.04 %
[2018-12-25 08:18] LABS: Band Neutrophils # (Manual) 0.4 K/mm3; Basophils % (Manual) 0 % (0.0-1.8); Eosinophils % (Manual) 0 % (0.0-4.3); Total Cells Counted 100
[2018-12-25 08:19] LABS: Anisocytosis 1+
[2018-12-25 08:21] LABS: Hypochromasia 1+; Platelet Estimate Consistent w Auto
[2018-12-25] MEDS: ASPIRIN EC 81 MG TAB PO SCH (09:58)
[2018-12-25] MEDS: amLODIPine 10 MG TAB PO SCH (09:58)
[2018-12-25] MEDS: cefTRIAXone/NS 2 GM/100 ML 2 GM/100 ML BAG IV SCH (09:58)
[2018-12-25] MEDS: DOCUSATE SODIUM 100 MG CAP PO SCH ×2 (09:59→22:07)
[2018-12-25] MEDS ORDERED: ASPIRIN 81 MG PO SCH (10:00)
[2018-12-25] MEDS ORDERED: NON-FORMULARY EACH (Amlodipine Besylate 10 MG) PO SCH (10:00)
[2018-12-25] MEDS: BUDESONIDE 0.5 MG/2 ML NEBU IH SCH ×2 (11:04→20:53)
--- NOTE | 2018-12-25 11:04 | Discharge Summary ---
Providers - Providers Date of Admission: 12/24/18 18:22 Attending physician: BLAS MORIN MD 12/24/18 22:46 Consult to Dietitian/Nutrition [CONS] Routine Physician Instructions: Reason For Exam: Reason for Consult: Poor oral intake 12/25/18 09:48 Physical Therapy Evaluation and Treat [CONS] Routine Comment: Reason For Exam: weakness Primary care physician: ARELIS JONES Hospitalization Condition: Stable Hospital course: 78-year-old man who was at rehab. He is being treated for septic arthritis with IV antibiotics at rehab facility. He presents with a left upper extremity PICC line Past medical history; hypertension, obstructive lung disease CT head negative Likely anemia of chronic disease, patient has been transfused, patient on emp iric antibiotics. Received dietitian consult for malnutrition, patient improved Septic arthritis, reviewed documentation from previous admission. Patient was to continue Rocephin 2 g every 24 hours until 12/27/2018, after which PICC line can be removed. And patient will be on Cefdinir twice daily x2 weeks -He received Rocephin while in hospital. PICC line was removed prior to discharge. And he was discharged on Ceftin ear as recommended by the ID Patient was planned for return back to [facility] facility. But insurance denied, and therefore patient was discharged home with family. Diagnosis Sepsis UTI? fup urine cx Septic arthritis involving R UE Anemia of chronic disease Hypertension Asthma Senile dementia Disposition: TO HOME OR SELFCARE Time spent for discharge: 35 minutes Core Measure Documentation - Palliative Care Palliative Care/ Comfort Measures: Not Applicable - Core Measures Any of the following diagnoses?: none Exam - Physical Exam Narrative exam: General.: Appears well, no distress, nontoxic HEENT: Moist mucous membranes, extraocular muscles intact, no lymphadenopathy Neck: supple Cardiac: S1-S2 heard Lungs: clear to auscultation bilaterally Abdomen: soft , nontender, nondistended, bowel sounds positive Extremities: no edema clubbing or cyanosis Skin: no rash or lesions Neurologic: no gross focal deficits Psych: calm, and cooperative - Constitutional Vitals: Temp Pulse Resp BP Pulse Ox 98.3 F 76 18 139/58 99 12/25/18 09:05 12/25/18 09:58 12/25/18 09:05 12/25/18 09:58 12/25/18 09:05 Plan Follow up with: XIMENA KINGSLEYELKINS MD MELQUIADES [Referring] - 3-5 Days Prescriptions: Advair Diskus 250-50 mcg 1 each INHALATION BID #1 Allopurinol 100 mg PO DAILY #90 Amlodipine Besylate 10 mg PO DAILY #90 Cefdinir 300 mg PO BID #20 Docusate Sodium [Colace CAP] 100 mg PO BID #60 capsule Combivent Inhaler 1 each IH Q6HR PRN #1 PRN Reason: Shortness Of Breath Colchicine [Gloperba] 0.6 mg PO DAILY #90 Aspirin EC [Halfprin EC] 81 mg PO QDAY #90 tablet Multivitamin Tab W-MINERAL [Multiple Vitamin/Mineral (Theragran M)] 1 each PO QDAY #90 tablet ALBUTEROL Inhaler (OR & NICU) [ProAir HFA Inhaler] 1 puff IH QID PRN #8.5 gram PRN Reason: Shortness Of Breath ALBUTEROL NEB's [Proventil 0.083% NEBS] 2.5 mg IH Q4HRT PRN #120 nebu PRN Reason: Shortness Of Breath
[2018-12-25] MEDS: ARFORMOTEROL 15 MCG/2 ML NEBU IH SCH ×2 (11:05→20:53)
--- NOTE | 2018-12-25 14:53 | Progress Note ---
Assessment and Plan Assessment and plan: 78-year-old man who was at rehab. He is being treated for septic arthritis with IV antibiotics at rehab facility. He presents with a left upper extremity PICC line Past medical history; hypertension, obstructive lung disease CT head negative Likely anemia of chronic disease, patient has been transfused, patient on empiric antibiotics. Received dietitian consult for malnutrition, patient improved cont iv abx, awaiting auth prior to dc back to SNF Diagnosis Sepsis UTI? fup urine cx Septic arthritis Anemia of chronic disease Hypertension Asthma History Interval history: Review of systems Constitutional: No fevers, no malaise, no joint pains CVS: No chest pain, no orthopnea, no pedal edema GI: No abdominal pain, no diarrhea, no vomiting, no constipation Respiratory: No shortness of breath, no wheezing, no coughing Hospitalist Physical - Physical exam Narrative exam: General.: Appears well, no distress, nontoxic HEENT: Moist mucous membranes, extraocular muscles intact, no lymphadenopathy Neck: supple Cardiac: S1-S2 heard Lungs: clear to auscultation bilaterally Abdomen: soft , nontender, nondistended, bowel sounds positive Extremities: no edema clubbing or cyanosis Skin: no rash or lesions Neurologic: no gross focal deficits Psych: calm, and cooperative - Constitutional Vitals: Temp Pulse Resp BP Pulse Ox 97.9 F 73 18 131/64 99 12/25/18 11:51 12/25/18 12:00 12/25/18 11:51 12/25/18 11:51 12/25/18 11:51 General appearance: Present: no acute distress, well-nourished Results - Labs CBC & Chem 7: 12/25/18 04:02 12/25/18 04:02 Labs: Laboratory Last Values WBC 13.8 K/mm3 (4.5-11.0) H 12/25/18 04:02 RBC 3.02 M/mm3 (3.65-5.03) L 12/25/18 04:02 Hgb 8.2 gm/dl (11.8-15.2) L 12/25/18 04:02 Hct 25.7 % (35.5-45.6) L 12/25/18 04:02 MCV 85 fl (84-94) 12/25/18 04:02 MCH 27 pg (28-32) L 12/25/18 04:02 MCHC 32 % (32-34) 12/25/18 04:02 RDW 20.9 % (13.2-15.2) H 12/25/18 04:02 Plt Count 81 K/mm3 (140-440) L 12/25/18 04:02 [place] % (Auto) Portal Administrator 12/25/18 04:02 Add Manual Diff Complete 12/25/18 04:02 Total Counted 100 12/25/18 04:02 Seg Neutrophils % Portal Administrator 12/25/18 04:02 Seg Neuts % (Manual) 50.0 % (40.0-70.0) 12/25/18 04:02 Band Neutrophils % 3.0 % 12/25/18 04:02 Lymphocytes % (Manual) 15.0 % (13.4-35.0) 12/25/18 04:02 Reactive Lymphs % (Man) 0 % 12/25/18 04:02 Monocytes % (Manual) 32.0 % (0.0-7.3) H 12/25/18 04:02 Eosinophils % (Manual) 0 % (0.0-4.3) 12/25/18 04:02 Basophils % (Manual) 0 % (0.0-1.8) 12/25/18 04:02 Metamyelocytes % 0 % 12/25/18 04:02 Myelocytes % 0 % 12/25/18 04:02 Promyelocytes % 0 % 12/25/18 04:02 Blast Cells % 0 % 12/25/18 04:02 Nucleated RBC % Not Reportable 12/25/18 04:02 Seg Neutrophils # Man 6.9 K/mm3 (1.8-7.7) 12/25/18 04:02 Band Neutrophils # 0.4 K/mm3 12/25/18 04:02 Lymphocytes # (Manual) 2.1 K/mm3 (1.2-5.4) 12/25/18 04:02 Abs React Lymphs (Man) 0.0 K/mm3 12/25/18 04:02 Monocytes # (Manual) 4.4 K/mm3 (0.0-0.8) H 12/25/18 04:02 Eosinophils # (Manual) 0.0 K/mm3 (0.0-0.4) 12/25/18 04:02 Basophils # (Manual) 0.0 K/mm3 (0.0-0.1) 12/25/18 04:02 Metamyelocytes # 0.0 K/mm3 12/25/18 04:02 Myelocytes # 0.0 K/mm3 12/25/18 04:02 Promyelocytes # 0.0 K/mm3 12/25/18 04:02 Blast Cells # 0.0 K/mm3 12/25/18 04:02 WBC Morphology Not Reportable 12/25/18 04:02 Hypersegmented Neuts Not Reportable 12/25/18 04:02 Hyposegmented Neuts Not Reportable 12/25/18 04:02 Hypogranular Neuts Not Reportable 12/25/18 04:02 Smudge Cells Not Reportable 12/25/18 04:02 Toxic Granulation Not Reportable 12/25/18 04:02 Toxic Vacuolation Not Reportable 12/25/18 04:02 Dohle Bodies Not Reportable 12/25/18 04:02 Pelger-Huet Anomaly Not Reportable 12/25/18 04:02 Willow Rods Not Reportable 12/25/18 04:02 Platelet Estimate Consistent w auto 12/25/18 04:02 Clumped Platelets Not Reportable 12/25/18 04:02 Plt Clumps, EDTA Not Reportable 12/25/18 04:02 Large Platelets Not Reportable 12/25/18 04:02 Giant Platelets Not Reportable 12/25/18 04:02 Platelet Satelliting Not Reportable 12/25/18 04:02 Plt Morphology Comment Not Reportable 12/25/18 04:02 RBC Morphology Not Reportable 12/25/18 04:02 Dimorphic RBCs Not Reportable 12/25/18 04:02 Polychromasia Not Reportable 12/25/18 04:02 Hypochromasia 1+ 12/25/18 04:02 Poikilocytosis Not Reportable 12/25/18 04:02 Anisocytosis 1+ 12/25/18 04:02 Microcytosis Few 12/25/18 04:02 Macrocytosis Not Reportable 12/25/18 04:02 Spherocytes Not Reportable 12/25/18 04:02 Pappenheimer Bodies Not Reportable 12/25/18 04:02 Sickle Cells Not Reportable 12/25/18 04:02 Target Cells Not Reportable 12/25/18 04:02 Tear Drop Cells Not Reportable 12/25/18 04:02 Ovalocytes Not Reportable 12/25/18 04:02 Helmet Cells Not Reportable 12/25/18 04:02 [place] Bodies Not Reportable 12/25/18 04:02 [place] Rings Not Reportable 12/25/18 04:02 [place] Cells Not Reportable 12/25/18 04:02 Bite Cells Not Reportable 12/25/18 04:02 Crenated Cell Not Reportable 12/25/18 04:02 Elliptocytes Not Reportable 12/25/18 04:02 Acanthocytes (Spur) Not Reportable 12/25/18 04:02 Rouleaux Not Reportable 12/25/18 04:02 Hemoglobin C Crystals Not Reportable 12/25/18 04:02 Schistocytes Not Reportable 12/25/18 04:02 Malaria parasites Not Reportable 12/25/18 04:02 [place] Bodies Not Reportable 12/25/18 04:02 Hem Pathologist Commnt No 12/25/18 04:02 PT 17.1 Sec. (12.2-14.9) H 12/24/18 17:04 INR 1.41 (0.87-1.13) H 12/24/18 17:04 APTT 36.2 Sec. (24.2-36.6) 12/24/18 17:04 Sodium 137 mmol/L (137-145) 12/25/18 04:02 Potassium 3.7 mmol/L (3.6-5.0) 12/25/18 04:02 Chloride 101.5 mmol/L (98-107) 12/25/18 04:02 Carbon Dioxide 21 mmol/L (22-30) L 12/25/18 04:02 Anion Gap 18 mmol/L 12/25/18 04:02 BUN 9 mg/dL (9-20) 12/25/18 04:02 Creatinine 0.8 mg/dL (0.8-1.5) 12/25/18 04:02 Estimated GFR > 60 ml/min 12/25/18 04:02 BUN/Creatinine Ratio 11 % 12/25/18 04:02 Glucose 107 mg/dL (75-100) H 12/25/18 04:02 Hemoglobin A1c 5.8 % (4-6) 12/24/18 17:04 Calcium 8.4 mg/dL (8.4-10.2) 12/25/18 04:02 Iron 20 ug/dL (49-181) L 12/25/18 04:02 TIBC 133 mcg/dL (250-450) L 12/25/18 04:02 % Saturation 15.04 % 12/25/18 04:02 Transferrin 114 mg/dl (180-329) L 12/25/18 04:02 Total Bilirubin 0.40 mg/dL (0.1-1.2) 12/25/18 04:02 AST 21 units/L (5-40) 12/25/18 04:02 ALT 35 units/L (7-56) 12/25/18 04:02 Alkaline Phosphatase 84 units/L (35-129) 12/25/18 04:02 Total Protein 7.1 g/dL (6.3-8.2) 12/25/18 04:02 Albumin 2.8 g/dL (3.9-5) L 12/25/18 04:02 Albumin/Globulin Ratio 0.7 % 12/25/18 04:02 Vitamin B12 906.8 pg/mL (211-911) 12/25/18 04:02 Urine Color Yellow (Yellow) 12/24/18 19:17 Urine Turbidity Cloudy (Clear) 12/24/18 19:17 Urine pH 6.0 (5.0-7.0) 12/24/18 19:17 Ur Specific [place] 1.014 (1.003-1.030) 12/24/18 19:17 Urine Protein 30 mg/dl mg/dL (Negative) 12/24/18 19:17 Urine Glucose (UA) Neg mg/dL (Negative) 12/24/18 19:17 Urine Ketones Neg mg/dL (Negative) 12/24/18 19:17 Urine Blood Sm (Negative) 12/24/18 19:17 Urine Nitrite Neg (Negative) 12/24/18 19:17 Urine Bilirubin Neg (Negative) 12/24/18 19:17 Urine Urobilinogen < 2.0 mg/dL (<2.0) 12/24/18 19:17 Ur Leukocyte Esterase Sm (Negative) 12/24/18 19:17 Urine WBC (Auto) 39.0 /HPF (0.0-6.0) H 12/24/18 19:17 Urine RBC (Auto) 13.0 /HPF (0.0-6.0) 12/24/18 19:17 U Epithel Cells (Auto) 1.0 /HPF (0-13.0) 12/24/18 19:17 Urine Bacteria (Auto) 2+ /HPF (Negative) 12/24/18 19:17 Urine Mucus Few /HPF 12/24/18 19:17 Urine Yeast (Budding) 3+ /HPF 12/24/18 19:17 Blood Type B POSITIVE 12/24/18 17:05 Antibody Screen Negative 12/24/18 17:05 Crossmatch See Detail 12/24/18 17:05 Active Medications - Current Medications Current Medications: Generic Name Dose Route Start Last Admin Trade Name Freq PRN Reason Stop Dose Admin Acetaminophen 650 mg 12/24/18 22:42 Tylenol PO Q4H PRN Pain MILD(1-3)/Fever >100.5/[place] Albuterol 2.5 mg 12/24/18 22:56 Proventil IH Q4HRT PRN Shortness Of Breath Amlodipine Besylate 10 mg 12/25/18 10:00 12/25/18 09:58 Amlodipine PO 10 mg DAILY STEVE Administration Arformoterol Tartrate 15 mcg 12/25/18 08:00 12/25/18 11:05 Brovana Nebu IH 15 mcg Q12HRT STEVE Administration Aspirin 81 mg 12/25/18 10:00 12/25/18 09:58 Halfprin Ec PO 81 mg QDAY STEVE Administration Budesonide 0.5 mg 12/25/18 08:00 12/25/18 11:04 Pulmicort IH 0.5 mg Q12HRT STEVE Administration Docusate Sodium 100 mg 12/25/18 10:00 12/25/18 09:59 Colace PO 100 mg BID STEVE Administration Hydromorphone HCl 0.5 mg 12/24/18 22:42 Dilaudid IV Q3H PRN Pain , Severe (7-10) Ceftriaxone Sodium 2 gm in 100 mls @ 200 mls/hr 12/25/18 10:00 12/25/18 09:58 Rocephin/Ns 2 Gm/100 Ml IV 12/29/18 10:29 200 mls/hr Q24HR STEVE Administration Protocol Multivitamins/Minerals 1 each 12/25/18 15:00 Theragran-M Tab PO QDAY STEVE Ondansetron HCl 4 mg 12/24/18 22:42 Zofran IV Q8H PRN Nausea And Vomiting Oxycodone/Acetaminophen 1 tab 12/24/18 22:38 12/24/18 23:12 Percocet 5/325 PO 1 tab Q6H PRN Administration Pain, Moderate (4-6) Sodium Chloride 10 ml 12/25/18 10:00 12/25/18 09:59 Sodium Chloride Flush Syringe 10 Ml IV 10 ml BID STEVE Administration Sodium Chloride 10 ml 12/24/18 22:42 Sodium Chloride Flush Syringe 10 Ml IV PRN PRN LINE FLUSH Zolpidem Tartrate 5 mg 12/24/18 22:42 12/24/18 23:12 Ambien PO 5 mg QHS PRN Administration Insomnia Nutrition/Malnutrition Assess - Dietary Evaluation Nutrition/Malnutrition Findings: Nutrition Notes Start: 12/25/18 10:55 Freq: Status: Active Protocol: Document 12/25/18 10:55 CT (Rec: 12/25/18 11:25 CT [id number]) Co-Sign 12/25/18 10:55 Nutrition Notes Need for Assessment generated from: MD Order Initial or Follow up Assessment Current Diagnosis Hypertension Other Pertinent Diagnosis Asthma, Septic Arthritis on Oral abx Current Diet Cardiac Diet, Ensure Max Pro Labs/Tests Iron 20 TIBC 133 Transferrin 114 Glu 107 Pertinent Medications Colace Height 5 ft 9 in Weight 76.1 kg Usual Body Weight 77.7 kg [place] Body Weight (kg) 72.72 BMI 24.7 Intake Prior to Admission Good Weight change and time frame 30% weight loss in 1 year UBW 243 lbs Weight Status Appropriate Subjective/Other Information Pt consult for poor oral intake. Pt was sleeping but woke up at time of visit. Per RN, pt has not had an appetite recently. Pt states that the food is okay taste villareal and that he has been receiving 1 Ensure at breakfast time. Pt states that the doctor wanted him to have 2 Ensure per day. Noted that pt has no issues with chewing the food, but does not have an appetite. Burn Absent Trauma Absent GI Symptoms None Food Allergy No Minimum of two criteria Yes Energy Intake (non-severe) <75% Estimated Energy Requirement >7 days Interpretation of Weight Loss (severe) > 20% in 1 year #1 Nutrition Diagnosis Inadequate oral intake, Malnutrition Etiology decreased appetite As Evidenced by Signs and Symptoms Pt wt loss of >20% in 1 year and consuming <75% of energy requirements over the last 7 days. Is patient on ventilator? No Is Patient Ambulatory and/or Out of Bed No REE-([facility]-confined to bed) 3584.028 Calculation Used for Recommendations [facility] Additional Notes PRO needs 76-91 g/day (1-1.2 g /kg/day) Fluid needs: 1 ml/kcal Nutrition Intervention Change Diet Order: Continue Current Add Supplement/Snack (indicate name/kcal Change to Ensure Enlive BID /protein ) Chocolate only Provides kCal: 700 Provides Protein (gm) 40 Goal #1 Meet >80% of energy and protein needs Anticipated Discharge Needs: Cardiac Diet Follow-Up By: 12/27/18 Additional Comments PO intakes and receiving 2 ONS /need for additional ONS
[2018-12-25] MEDS: MULTIVITAMINS,THER W-MINERALS TAB PO SCH (15:00)
[2018-12-25] MEDS: oxyCODONE /ACETAMINOPHEN 5-325MG TAB PO PRN (22:05)
[2018-12-26] MEDS: BUDESONIDE 0.5 MG/2 ML NEBU IH SCH ×2 (09:07→20:16)
[2018-12-26] MEDS: ARFORMOTEROL 15 MCG/2 ML NEBU IH SCH ×2 (09:07→20:16)
[2018-12-26] MEDS: cefTRIAXone/NS 2 GM/100 ML 2 GM/100 ML BAG IV SCH (09:47)
[2018-12-26] MEDS: amLODIPine 10 MG TAB PO SCH (09:47)
[2018-12-26] MEDS: MULTIVITAMINS,THER W-MINERALS TAB PO SCH (09:48)
[2018-12-26] MEDS: ASPIRIN EC 81 MG TAB PO SCH (09:48)
[2018-12-26] MEDS: DOCUSATE SODIUM 100 MG CAP PO SCH ×2 (09:48→21:59)
--- NOTE | 2018-12-26 16:21 | Progress Note ---
Assessment and Plan Assessment and plan: 78-year-old man who was at rehab. He is being treated for septic arthritis with IV antibiotics at rehab facility. He presents with a left upper extremity PICC line Past medical history; hypertension, obstructive lung disease CT head negative Likely anemia of chronic disease, patient has been transfused, patient on empiric antibiotics. Received dietitian consult for malnutrition, patient improved cont iv abx, awaiting auth prior to dc back to SNF Septic arthritis, reviewed documentation from previous admission. Patient was to continue Rocephin 2 g every 24 hours until 12/27/2018, after which PICC line can be removed. And patient will be on Cefdinir twice daily x2 weeks Diagnosis Sepsis UTI? fup urine cx Septic arthritis involving R UE Anemia of chronic disease Hypertension Asthma History Interval history: Review of systems Constitutional: No fevers, no malaise, no joint pains CVS: No chest pain, no orthopnea, no pedal edema GI: No abdominal pain, no diarrhea, no vomiting, no constipation Respiratory: No shortness of breath, no wheezing, no coughing Hospitalist Physical - Physical exam Narrative exam: General.: Appears well, no distress, nontoxic HEENT: Moist mucous membranes, extraocular muscles intact, no lymphadenopathy Neck: supple Cardiac: S1-S2 heard Lungs: clear to auscultation bilaterally Abdomen: soft , nontender, nondistended, bowel sounds positive Extremities: no edema clubbing or cyanosis Skin: no rash or lesions Neurologic: no gross focal deficits Psych: calm, and cooperative - Constitutional Vitals: Temp Pulse Resp BP Pulse Ox 97.8 F 106 H 19 108/51 99 12/26/18 09:01 12/26/18 12:00 12/26/18 10:00 12/26/18 09:47 12/26/18 10:00 General appearance: Present: no acute distress, well-nourished Results - Labs CBC & Chem 7: 12/25/18 04:02 12/25/18 04:02 Labs: Laboratory Last Values WBC 13.8 K/mm3 (4.5-11.0) H 12/25/18 04:02 RBC 3.02 M/mm3 (3.65-5.03) L 12/25/18 04:02 Hgb 8.2 gm/dl (11.8-15.2) L 12/25/18 04:02 Hct 25.7 % (35.5-45.6) L 12/25/18 04:02 MCV 85 fl (84-94) 12/25/18 04:02 MCH 27 pg (28-32) L 12/25/18 04:02 MCHC 32 % (32-34) 12/25/18 04:02 RDW 20.9 % (13.2-15.2) H 12/25/18 04:02 Plt Count 81 K/mm3 (140-440) L 12/25/18 04:02 [place] % (Auto) [place] 12/25/18 04:02 Add Manual Diff Complete 12/25/18 04:02 Total Counted 100 12/25/18 04:02 Seg Neutrophils % [place] 12/25/18 04:02 Seg Neuts % (Manual) 50.0 % (40.0-70.0) 12/25/18 04:02 Band Neutrophils % 3.0 % 12/25/18 04:02 Lymphocytes % (Manual) 15.0 % (13.4-35.0) 12/25/18 04:02 Reactive Lymphs % (Man) 0 % 12/25/18 04:02 Monocytes % (Manual) 32.0 % (0.0-7.3) H 12/25/18 04:02 Eosinophils % (Manual) 0 % (0.0-4.3) 12/25/18 04:02 Basophils % (Manual) 0 % (0.0-1.8) 12/25/18 04:02 Metamyelocytes % 0 % 12/25/18 04:02 Myelocytes % 0 % 12/25/18 04:02 Promyelocytes % 0 % 12/25/18 04:02 Blast Cells % 0 % 12/25/18 04:02 Nucleated RBC % Not Reportable 12/25/18 04:02 Seg Neutrophils # Man 6.9 K/mm3 (1.8-7.7) 12/25/18 04:02 Band Neutrophils # 0.4 K/mm3 12/25/18 04:02 Lymphocytes # (Manual) 2.1 K/mm3 (1.2-5.4) 12/25/18 04:02 Abs React Lymphs (Man) 0.0 K/mm3 12/25/18 04:02 Monocytes # (Manual) 4.4 K/mm3 (0.0-0.8) H 12/25/18 04:02 Eosinophils # (Manual) 0.0 K/mm3 (0.0-0.4) 12/25/18 04:02 Basophils # (Manual) 0.0 K/mm3 (0.0-0.1) 12/25/18 04:02 Metamyelocytes # 0.0 K/mm3 12/25/18 04:02 Myelocytes # 0.0 K/mm3 12/25/18 04:02 Promyelocytes # 0.0 K/mm3 12/25/18 04:02 Blast Cells # 0.0 K/mm3 12/25/18 04:02 Pathologist Review 12/25/18 08:26 WBC Morphology Not Reportable 12/25/18 04:02 Hypersegmented Neuts Not Reportable 12/25/18 04:02 Hyposegmented Neuts Not Reportable 12/25/18 04:02 Hypogranular Neuts Not Reportable 12/25/18 04:02 Smudge Cells Not Reportable 12/25/18 04:02 Toxic Granulation Not Reportable 12/25/18 04:02 Toxic Vacuolation Not Reportable 12/25/18 04:02 Dohle Bodies Not Reportable 12/25/18 04:02 Pelger-Huet Anomaly Not Reportable 12/25/18 04:02 Willow Rods Not Reportable 12/25/18 04:02 Platelet Estimate Consistent w auto 12/25/18 04:02 Clumped Platelets Not Reportable 12/25/18 04:02 Plt Clumps, EDTA Not Reportable 12/25/18 04:02 Large Platelets Not Reportable 12/25/18 04:02 Giant Platelets Not Reportable 12/25/18 04:02 Platelet Satelliting Not Reportable 12/25/18 04:02 Plt Morphology Comment Not Reportable 12/25/18 04:02 RBC Morphology Not Reportable 12/25/18 04:02 Dimorphic RBCs Not Reportable 12/25/18 04:02 Polychromasia Not Reportable 12/25/18 04:02 Hypochromasia 1+ 12/25/18 04:02 Poikilocytosis Not Reportable 12/25/18 04:02 Anisocytosis 1+ 12/25/18 04:02 Microcytosis Few 12/25/18 04:02 Macrocytosis Not Reportable 12/25/18 04:02 Spherocytes Not Reportable 12/25/18 04:02 Pappenheimer Bodies Not Reportable 12/25/18 04:02 Sickle Cells Not Reportable 12/25/18 04:02 Target Cells Not Reportable 12/25/18 04:02 Tear Drop Cells Not Reportable 12/25/18 04:02 Ovalocytes Not Reportable 12/25/18 04:02 Helmet Cells Not Reportable 12/25/18 04:02 [place] Bodies Not Reportable 12/25/18 04:02 [place] Rings Not Reportable 12/25/18 04:02 [place] Cells Not Reportable 12/25/18 04:02 Bite Cells Not Reportable 12/25/18 04:02 Crenated Cell Not Reportable 12/25/18 04:02 Elliptocytes Not Reportable 12/25/18 04:02 Acanthocytes (Spur) Not Reportable 12/25/18 04:02 Rouleaux Not Reportable 12/25/18 04:02 Hemoglobin C Crystals Not Reportable 12/25/18 04:02 Schistocytes Not Reportable 12/25/18 04:02 Malaria parasites Not Reportable 12/25/18 04:02 Terry Bodies Not Reportable 12/25/18 04:02 Hem Pathologist Commnt Sent 12/25/18 04:02 PT 17.1 Sec. (12.2-14.9) H 12/24/18 17:04 INR 1.41 (0.87-1.13) H 12/24/18 17:04 APTT 36.2 Sec. (24.2-36.6) 12/24/18 17:04 Sodium 137 mmol/L (137-145) 12/25/18 04:02 Potassium 3.7 mmol/L (3.6-5.0) 12/25/18 04:02 Chloride 101.5 mmol/L (98-107) 12/25/18 04:02 Carbon Dioxide 21 mmol/L (22-30) L 12/25/18 04:02 Anion Gap 18 mmol/L 12/25/18 04:02 BUN 9 mg/dL (9-20) 12/25/18 04:02 Creatinine 0.8 mg/dL (0.8-1.5) 12/25/18 04:02 Estimated GFR > 60 ml/min 12/25/18 04:02 BUN/Creatinine Ratio 11 % 12/25/18 04:02 Glucose 107 mg/dL (75-100) H 12/25/18 04:02 Hemoglobin A1c 5.8 % (4-6) 12/24/18 17:04 Calcium 8.4 mg/dL (8.4-10.2) 12/25/18 04:02 Iron 20 ug/dL (49-181) L 12/25/18 04:02 TIBC 133 mcg/dL (250-450) L 12/25/18 04:02 % Saturation 15.04 % 12/25/18 04:02 Transferrin 114 mg/dl (180-329) L 12/25/18 04:02 Total Bilirubin 0.40 mg/dL (0.1-1.2) 12/25/18 04:02 AST 21 units/L (5-40) 12/25/18 04:02 ALT 35 units/L (7-56) 12/25/18 04:02 Alkaline Phosphatase 84 units/L (35-129) 12/25/18 04:02 Total Protein 7.1 g/dL (6.3-8.2) 12/25/18 04:02 Albumin 2.8 g/dL (3.9-5) L 12/25/18 04:02 Albumin/Globulin Ratio 0.7 % 12/25/18 04:02 Vitamin B12 906.8 pg/mL (211-911) 12/25/18 04:02 Urine Color Yellow (Yellow) 12/24/18 19:17 Urine Turbidity Cloudy (Clear) 12/24/18 19:17 Urine pH 6.0 (5.0-7.0) 12/24/18 19:17 Ur Specific [place] 1.014 (1.003-1.030) 12/24/18 19:17 Urine Protein 30 mg/dl mg/dL (Negative) 12/24/18 19:17 Urine Glucose (UA) Neg mg/dL (Negative) 12/24/18 19:17 Urine Ketones Neg mg/dL (Negative) 12/24/18 19:17 Urine Blood Sm (Negative) 12/24/18 19:17 Urine Nitrite Neg (Negative) 12/24/18 19:17 Urine Bilirubin Neg (Negative) 12/24/18 19:17 Urine Urobilinogen < 2.0 mg/dL (<2.0) 12/24/18 19:17 Ur Leukocyte Esterase Sm (Negative) 12/24/18 19:17 Urine WBC (Auto) 39.0 /HPF (0.0-6.0) H 12/24/18 19:17 Urine RBC (Auto) 13.0 /HPF (0.0-6.0) 12/24/18 19:17 U Epithel Cells (Auto) 1.0 /HPF (0-13.0) 12/24/18 19:17 Urine Bacteria (Auto) 2+ /HPF (Negative) 12/24/18 19:17 Urine Mucus Few /HPF 12/24/18 19:17 Urine Yeast (Budding) 3+ /HPF 12/24/18 19:17 Blood Type B POSITIVE 12/24/18 17:05 Antibody Screen Negative 12/24/18 17:05 Crossmatch See Detail 12/24/18 17:05 Active Medications - Current Medications Current Medications: Generic Name Dose Route Start Last Admin Trade Name Freq PRN Reason Stop Dose Admin Acetaminophen 650 mg 12/24/18 22:42 Tylenol PO Q4H PRN Pain MILD(1-3)/Fever >100.5/[place] Albuterol 2.5 mg 12/24/18 22:56 Proventil IH Q4HRT PRN Shortness Of Breath Amlodipine Besylate 10 mg 12/25/18 10:00 12/26/18 09:47 Amlodipine PO Not Given DAILY STEVE Arformoterol Tartrate 15 mcg 12/25/18 08:00 12/26/18 09:07 Brovana Nebu IH 15 mcg Q12HRT STEVE Administration Aspirin 81 mg 12/25/18 10:00 12/26/18 09:48 Halfprin Ec PO 81 mg QDAY STEVE Administration Budesonide 0.5 mg 12/25/18 08:00 12/26/18 09:07 Pulmicort IH 0.5 mg Q12HRT STEVE Administration Docusate Sodium 100 mg 12/25/18 10:00 12/26/18 09:48 Colace PO 100 mg BID STEVE Administration Hydromorphone HCl 0.5 mg 12/24/18 22:42 Dilaudid IV Q3H PRN Pain , Severe (7-10) Ceftriaxone Sodium 2 gm in 100 mls @ 200 mls/hr 12/25/18 10:00 12/26/18 09:47 Rocephin/Ns 2 Gm/100 Ml IV 12/29/18 10:29 200 mls/hr Q24HR STEVE Administration Protocol Multivitamins/Minerals 1 each 12/25/18 15:00 12/26/18 09:48 Theragran-M Tab PO 1 each QDAY STEVE Administration Ondansetron HCl 4 mg 12/24/18 22:42 Zofran IV Q8H PRN Nausea And Vomiting Oxycodone/Acetaminophen 1 tab 12/24/18 22:38 12/25/18 22:05 Percocet 5/325 PO 1 tab Q6H PRN Administration Pain, Moderate (4-6) Sodium Chloride 10 ml 12/25/18 10:00 12/26/18 09:48 Sodium Chloride Flush Syringe 10 Ml IV 10 ml BID STEVE Administration Sodium Chloride 10 ml 12/24/18 22:42 Sodium Chloride Flush Syringe 10 Ml IV PRN PRN LINE FLUSH Zolpidem Tartrate 5 mg 12/24/18 22:42 12/24/18 23:12 Ambien PO 5 mg QHS PRN Administration Insomnia Nutrition/Malnutrition Assess - Dietary Evaluation Nutrition/Malnutrition Findings: Nutrition Notes Start: 12/25/18 10:55 Freq: Status: Active Protocol: Document 12/25/18 10:55 CT (Rec: 12/25/18 11:25 CT [id number]) Co-Sign 12/25/18 10:55 Nutrition Notes Need for Assessment generated from: MD Order Initial or Follow up Assessment Current Diagnosis Hypertension Other Pertinent Diagnosis Asthma, Septic Arthritis on Oral abx Current Diet Cardiac Diet, Ensure Max Pro Labs/Tests Iron 20 TIBC 133 Transferrin 114 Glu 107 Pertinent Medications Colace Height 5 ft 9 in Weight 76.1 kg Usual Body Weight 77.7 kg [place] Body Weight (kg) 72.72 BMI 24.7 Intake Prior to Admission Good Weight change and time frame 30% weight loss in 1 year UBW 243 lbs Weight Status Appropriate Subjective/Other Information Pt consult for poor oral intake. Pt was sleeping but woke up at time of visit. Per RN, pt has not had an appetite recently. Pt states that the food is okay taste villareal and that he has been receiving 1 Ensure at breakfast time. Pt states that the doctor wanted him to have 2 Ensure per day. Noted that pt has no issues with chewing the food, but does not have an appetite. Burn Absent Trauma Absent GI Symptoms None Food Allergy No Minimum of two criteria Yes Energy Intake (non-severe) <75% Estimated Energy Requirement >7 days Interpretation of Weight Loss (severe) > 20% in 1 year #1 Nutrition Diagnosis Inadequate oral intake, Malnutrition Etiology decreased appetite As Evidenced by Signs and Symptoms Pt wt loss of >20% in 1 year and consuming <75% of energy requirements over the last 7 days. Is patient on ventilator? No Is Patient Ambulatory and/or Out of Bed No REE-([facility]-confined to bed) 1784.028 Calculation Used for Recommendations [facility] Additional Notes PRO needs 76-91 g/day (1-1.2 g /kg/day) Fluid needs: 1 ml/kcal Nutrition Intervention Change Diet Order: Continue Current Add Supplement/Snack (indicate name/kcal Change to Ensure Enlive BID /protein ) Chocolate only Provides kCal: 700 Provides Protein (gm) 40 Goal #1 Meet >80% of energy and protein needs Anticipated Discharge Needs: Cardiac Diet Follow-Up By: 12/27/18 Additional Comments PO intakes and receiving 2 ONS /need for additional ONS
[2018-12-26] MEDS: oxyCODONE /ACETAMINOPHEN 5-325MG TAB PO PRN (22:02)
[2018-12-27] MEDS: HYDROmorphone 1 MG/1 ML INJ IV PRN ×4 (08:20→19:45)
[2018-12-27] MEDS: oxyCODONE /ACETAMINOPHEN 5-325MG TAB PO PRN ×3 (10:20→23:26)
[2018-12-27] MEDS: cefTRIAXone/NS 2 GM/100 ML 2 GM/100 ML BAG IV SCH (10:23)
[2018-12-27] MEDS: ASPIRIN EC 81 MG TAB PO SCH (10:23)
[2018-12-27] MEDS: amLODIPine 10 MG TAB PO SCH (10:24)
[2018-12-27] MEDS: MULTIVITAMINS,THER W-MINERALS TAB PO SCH (10:24)
[2018-12-27] MEDS: DOCUSATE SODIUM 100 MG CAP PO SCH ×2 (10:24→21:43)
[2018-12-27] MEDS: BUDESONIDE 0.5 MG/2 ML NEBU IH SCH ×2 (15:04→20:25)
[2018-12-27] MEDS: ARFORMOTEROL 15 MCG/2 ML NEBU IH SCH ×2 (15:05→20:25)
--- NOTE | 2018-12-27 15:07 | Progress Note ---
Assessment and Plan Assessment and plan: 78-year-old man who was at rehab. He is being treated for septic arthritis with IV antibiotics at rehab facility. He presents with a left upper extremity PICC line Past medical history; hypertension, obstructive lung disease CT head negative Likely anemia of chronic disease, patient has been transfused, patient on empiric antibiotics. Received dietitian consult for malnutrition, patient improved cont iv abx, awaiting auth prior to dc back to SNF Septic arthritis, reviewed documentation from previous admission. Patient was to continue Rocephin 2 g every 24 hours until 12/27/2018, after which PICC line can be removed. And patient will be on Cefdinir twice daily x2 weeks Diagnosis Sepsis UTI? fup urine cx Septic arthritis involving R UE Anemia of chronic disease Hypertension Asthma History Interval history: Review of systems Constitutional: No fevers, no malaise, no joint pains CVS: No chest pain, no orthopnea, no pedal edema GI: No abdominal pain, no diarrhea, no vomiting, no constipation Respiratory: No shortness of breath, no wheezing, no coughing Hospitalist Physical - Physical exam Narrative exam: General.: Appears well, no distress, nontoxic HEENT: Moist mucous membranes, extraocular muscles intact, no lymphadenopathy Neck: supple Cardiac: S1-S2 heard Lungs: clear to auscultation bilaterally Abdomen: soft , nontender, nondistended, bowel sounds positive Extremities: no edema clubbing or cyanosis Skin: no rash or lesions Neurologic: no gross focal deficits Psych: calm, and cooperative - Constitutional Vitals: Temp Pulse Resp BP Pulse Ox 98.1 F 73 8 L 110/47 99 12/27/18 08:19 12/27/18 11:23 12/27/18 08:19 12/27/18 11:23 12/27/18 11:23 General appearance: Present: no acute distress, well-nourished Results - Labs CBC & Chem 7: 12/25/18 04:02 12/25/18 04:02 Labs: Laboratory Last Values WBC 13.8 K/mm3 (4.5-11.0) H 12/25/18 04:02 RBC 3.02 M/mm3 (3.65-5.03) L 12/25/18 04:02 Hgb 8.2 gm/dl (11.8-15.2) L 12/25/18 04:02 Hct 25.7 % (35.5-45.6) L 12/25/18 04:02 MCV 85 fl (84-94) 12/25/18 04:02 MCH 27 pg (28-32) L 12/25/18 04:02 MCHC 32 % (32-34) 12/25/18 04:02 RDW 20.9 % (13.2-15.2) H 12/25/18 04:02 Plt Count 81 K/mm3 (140-440) L 12/25/18 04:02 [place] % (Auto) Electronics Inspector 12/25/18 04:02 Add Manual Diff Complete 12/25/18 04:02 Total Counted 100 12/25/18 04:02 Seg Neutrophils % Electronics Inspector 12/25/18 04:02 Seg Neuts % (Manual) 50.0 % (40.0-70.0) 12/25/18 04:02 Band Neutrophils % 3.0 % 12/25/18 04:02 Lymphocytes % (Manual) 15.0 % (13.4-35.0) 12/25/18 04:02 Reactive Lymphs % (Man) 0 % 12/25/18 04:02 Monocytes % (Manual) 32.0 % (0.0-7.3) H 12/25/18 04:02 Eosinophils % (Manual) 0 % (0.0-4.3) 12/25/18 04:02 Basophils % (Manual) 0 % (0.0-1.8) 12/25/18 04:02 Metamyelocytes % 0 % 12/25/18 04:02 Myelocytes % 0 % 12/25/18 04:02 Promyelocytes % 0 % 12/25/18 04:02 Blast Cells % 0 % 12/25/18 04:02 Nucleated RBC % Not Reportable 12/25/18 04:02 Seg Neutrophils # Man 6.9 K/mm3 (1.8-7.7) 12/25/18 04:02 Band Neutrophils # 0.4 K/mm3 12/25/18 04:02 Lymphocytes # (Manual) 2.1 K/mm3 (1.2-5.4) 12/25/18 04:02 Abs React Lymphs (Man) 0.0 K/mm3 12/25/18 04:02 Monocytes # (Manual) 4.4 K/mm3 (0.0-0.8) H 12/25/18 04:02 Eosinophils # (Manual) 0.0 K/mm3 (0.0-0.4) 12/25/18 04:02 Basophils # (Manual) 0.0 K/mm3 (0.0-0.1) 12/25/18 04:02 Metamyelocytes # 0.0 K/mm3 12/25/18 04:02 Myelocytes # 0.0 K/mm3 12/25/18 04:02 Promyelocytes # 0.0 K/mm3 12/25/18 04:02 Blast Cells # 0.0 K/mm3 12/25/18 04:02 Pathologist Review 12/25/18 08:26 WBC Morphology Not Reportable 12/25/18 04:02 Hypersegmented Neuts Not Reportable 12/25/18 04:02 Hyposegmented Neuts Not Reportable 12/25/18 04:02 Hypogranular Neuts Not Reportable 12/25/18 04:02 Smudge Cells Not Reportable 12/25/18 04:02 Toxic Granulation Not Reportable 12/25/18 04:02 Toxic Vacuolation Not Reportable 12/25/18 04:02 Dohle Bodies Not Reportable 12/25/18 04:02 Pelger-Huet Anomaly Not Reportable 12/25/18 04:02 Willow Rods Not Reportable 12/25/18 04:02 Platelet Estimate Consistent w auto 12/25/18 04:02 Clumped Platelets Not Reportable 12/25/18 04:02 Plt Clumps, EDTA Not Reportable 12/25/18 04:02 Large Platelets Not Reportable 12/25/18 04:02 Giant Platelets Not Reportable 12/25/18 04:02 Platelet Satelliting Not Reportable 12/25/18 04:02 Plt Morphology Comment Not Reportable 12/25/18 04:02 RBC Morphology Not Reportable 12/25/18 04:02 Dimorphic RBCs Not Reportable 12/25/18 04:02 Polychromasia Not Reportable 12/25/18 04:02 Hypochromasia 1+ 12/25/18 04:02 Poikilocytosis Not Reportable 12/25/18 04:02 Anisocytosis 1+ 12/25/18 04:02 Microcytosis Few 12/25/18 04:02 Macrocytosis Not Reportable 12/25/18 04:02 Spherocytes Not Reportable 12/25/18 04:02 Pappenheimer Bodies Not Reportable 12/25/18 04:02 Sickle Cells Not Reportable 12/25/18 04:02 Target Cells Not Reportable 12/25/18 04:02 Tear Drop Cells Not Reportable 12/25/18 04:02 Ovalocytes Not Reportable 12/25/18 04:02 Helmet Cells Not Reportable 12/25/18 04:02 [place] Bodies Not Reportable 12/25/18 04:02 [place] Rings Not Reportable 12/25/18 04:02 [place] Cells Not Reportable 12/25/18 04:02 Bite Cells Not Reportable 12/25/18 04:02 Crenated Cell Not Reportable 12/25/18 04:02 Elliptocytes Not Reportable 12/25/18 04:02 Acanthocytes (Spur) Not Reportable 12/25/18 04:02 Rouleaux Not Reportable 12/25/18 04:02 Hemoglobin C Crystals Not Reportable 12/25/18 04:02 Schistocytes Not Reportable 12/25/18 04:02 Malaria parasites Not Reportable 12/25/18 04:02 [place] Bodies Not Reportable 12/25/18 04:02 Hem Pathologist Commnt Sent 12/25/18 04:02 PT 17.1 Sec. (12.2-14.9) H 12/24/18 17:04 INR 1.41 (0.87-1.13) H 12/24/18 17:04 APTT 36.2 Sec. (24.2-36.6) 12/24/18 17:04 Sodium 137 mmol/L (137-145) 12/25/18 04:02 Potassium 3.7 mmol/L (3.6-5.0) 12/25/18 04:02 Chloride 101.5 mmol/L (98-107) 12/25/18 04:02 Carbon Dioxide 21 mmol/L (22-30) L 12/25/18 04:02 Anion Gap 18 mmol/L 12/25/18 04:02 BUN 9 mg/dL (9-20) 12/25/18 04:02 Creatinine 0.8 mg/dL (0.8-1.5) 12/25/18 04:02 Estimated GFR > 60 ml/min 12/25/18 04:02 BUN/Creatinine Ratio 11 % 12/25/18 04:02 Glucose 107 mg/dL (75-100) H 12/25/18 04:02 Hemoglobin A1c 5.8 % (4-6) 12/24/18 17:04 Calcium 8.4 mg/dL (8.4-10.2) 12/25/18 04:02 Iron 20 ug/dL (49-181) L 12/25/18 04:02 TIBC 133 mcg/dL (250-450) L 12/25/18 04:02 % Saturation 15.04 % 12/25/18 04:02 Transferrin 114 mg/dl (180-329) L 12/25/18 04:02 Total Bilirubin 0.40 mg/dL (0.1-1.2) 12/25/18 04:02 AST 21 units/L (5-40) 12/25/18 04:02 ALT 35 units/L (7-56) 12/25/18 04:02 Alkaline Phosphatase 84 units/L (35-129) 12/25/18 04:02 Total Protein 7.1 g/dL (6.3-8.2) 12/25/18 04:02 Albumin 2.8 g/dL (3.9-5) L 12/25/18 04:02 Albumin/Globulin Ratio 0.7 % 12/25/18 04:02 Vitamin B12 906.8 pg/mL (211-911) 12/25/18 04:02 Urine Color Yellow (Yellow) 12/24/18 19:17 Urine Turbidity Cloudy (Clear) 12/24/18 19:17 Urine pH 6.0 (5.0-7.0) 12/24/18 19:17 Ur Specific [place] 1.014 (1.003-1.030) 12/24/18 19:17 Urine Protein 30 mg/dl mg/dL (Negative) 12/24/18 19:17 Urine Glucose (UA) Neg mg/dL (Negative) 12/24/18 19:17 Urine Ketones Neg mg/dL (Negative) 12/24/18 19:17 Urine Blood Sm (Negative) 12/24/18 19:17 Urine Nitrite Neg (Negative) 12/24/18 19:17 Urine Bilirubin Neg (Negative) 12/24/18 19:17 Urine Urobilinogen < 2.0 mg/dL (<2.0) 12/24/18 19:17 Ur Leukocyte Esterase Sm (Negative) 12/24/18 19:17 Urine WBC (Auto) 39.0 /HPF (0.0-6.0) H 12/24/18 19:17 Urine RBC (Auto) 13.0 /HPF (0.0-6.0) 12/24/18 19:17 U Epithel Cells (Auto) 1.0 /HPF (0-13.0) 12/24/18 19:17 Urine Bacteria (Auto) 2+ /HPF (Negative) 12/24/18 19:17 Urine Mucus Few /HPF 12/24/18 19:17 Urine Yeast (Budding) 3+ /HPF 12/24/18 19:17 Blood Type B POSITIVE 12/24/18 17:05 Antibody Screen Negative 12/24/18 17:05 Crossmatch See Detail 12/24/18 17:05 Active Medications - Current Medications Current Medications: Generic Name Dose Route Start Last Admin Trade Name Freq PRN Reason Stop Dose Admin Acetaminophen 650 mg 12/24/18 22:42 Tylenol PO Q4H PRN Pain MILD(1-3)/Fever >100.5/[place] Albuterol 2.5 mg 12/24/18 22:56 Proventil IH Q4HRT PRN Shortness Of Breath Amlodipine Besylate 10 mg 12/25/18 10:00 12/27/18 10:24 Amlodipine PO 10 mg DAILY STEVE Administration Arformoterol Tartrate 15 mcg 12/25/18 08:00 12/27/18 15:05 Brovana Nebu IH 15 mcg Q12HRT STEVE Administration Aspirin 81 mg 12/25/18 10:00 12/27/18 10:23 Halfprin Ec PO 81 mg QDAY STEVE Administration Budesonide 0.5 mg 12/25/18 08:00 12/27/18 15:04 Pulmicort IH 0.5 mg Q12HRT STEVE Administration Docusate Sodium 100 mg 12/25/18 10:00 12/27/18 10:24 Colace PO 100 mg BID STEVE Administration Hydromorphone HCl 0.5 mg 12/24/18 22:42 12/27/18 13:49 Dilaudid IV 0.5 mg Q3H PRN Administration Pain , Severe (7-10) Ceftriaxone Sodium 2 gm in 100 mls @ 200 mls/hr 12/25/18 10:00 12/27/18 10:23 Rocephin/Ns 2 Gm/100 Ml IV 12/29/18 10:29 200 mls/hr Q24HR STEVE Administration Protocol Multivitamins/Minerals 1 each 12/25/18 15:00 12/27/18 10:24 Theragran-M Tab PO 1 each QDAY STEVE Administration Ondansetron HCl 4 mg 12/24/18 22:42 Zofran IV Q8H PRN Nausea And Vomiting Oxycodone/Acetaminophen 1 tab 12/24/18 22:38 12/27/18 10:20 Percocet 5/325 PO 1 tab Q6H PRN Administration Pain, Moderate (4-6) Sodium Chloride 10 ml 12/25/18 10:00 12/27/18 10:25 Sodium Chloride Flush Syringe 10 Ml IV 10 ml BID STEVE Administration Sodium Chloride 10 ml 12/24/18 22:42 Sodium Chloride Flush Syringe 10 Ml IV PRN PRN LINE FLUSH Zolpidem Tartrate 5 mg 12/24/18 22:42 12/24/18 23:12 Ambien PO 5 mg QHS PRN Administration Insomnia Nutrition/Malnutrition Assess - Dietary Evaluation Nutrition/Malnutrition Findings: Nutrition Notes Start: 12/25/18 10:55 Freq: Status: Active Protocol: Document 12/27/18 10:03 CT (Rec: 12/27/18 11:12 CT [id number]) Co-Sign 12/27/18 10:03 Nutrition Notes Initial or Follow up Reassessment Current Diagnosis Hypertension Other Pertinent Diagnosis Asthma, Septic Arthritis on Oral abx Current Diet Cardiac Diet double portions, Ensure Enlive Labs/Tests Iron 20 TIBC 133 Transferrin 114 Pertinent Medications Reviewed Height 5 ft 9 in Weight 69.5 kg Usual Body Weight 77.7 kg [place] Body Weight (kg) 72.72 BMI 22.6 Intake Prior to Admission Good Weight change and time frame Pt weight on bedscale was 69 kg at time of visit. 30% weight loss in 1 year UBW 243 lbs Weight Status Appropriate Subjective/Other Information Pt follow up for PO and ONS intake. Pt was sleeping at arrival, but woke up and asked for his tray to be moved to where he could eat it. Helped pt get set up for eating breakfast. He needs help with eating meals. Pt started receiving 2 Ensure daily, would like 3 to help with hunger. Pt c/o not getting enough food. Order double portions for his trays due to pt report of good appetite. Pt experiencing arm pain in left arm, was not using left arm to eat. Pt ate 90% of breakfast tray. Noted clavical and temporal wasting. Percent of energy/protein needs met: 91% energy / 90% protein Burn Absent Trauma Absent GI Symptoms None Minimum of two criteria Yes Energy Intake (non-severe) <75% Estimated Energy Requirement >7 days Interpretation of Weight Loss (severe) > 20% in 1 year Body Fat Depletion Moderate depletion (severe) Muscle Mass Moderate Depletion (severe) #1 Nutrition Diagnosis Malnutrition Diagnosis Progress(for reassessment Worsened documentation) Is patient on ventilator? No Is Patient Ambulatory and/or Out of Bed No REE-([place]-confined to bed) 1704.912 Kcal/Kg value to use for calculation 30 Approximate Energy Requirements Using 2085 kcal/Kg Calculation Used for Recommendations Kcal/kg Additional Notes PRO needs 83-104 g/day (1.2-1. 5 g/kg/day) Fluid needs: 1 ml/kcal Nutrition Intervention Change Diet Order: Add double portions to current diet Add Supplement/Snack (indicate name/kcal Change to Ensure Enlive TID /protein ) Chocolate only Provides kCal: 1,050 Provides Protein (gm) 60 Goal #1 Meet >80% of energy and protein needs Goal #2 Wt gain/maintenance Anticipated Discharge Needs: Regular Diet Follow-Up By: 12/28/18 Additional Comments PO and ONS intakes Receiving double portions
[2018-12-28] MEDS: cefTRIAXone/NS 2 GM/100 ML 2 GM/100 ML BAG IV SCH (09:32)
[2018-12-28] MEDS: MULTIVITAMINS,THER W-MINERALS TAB PO SCH (09:32)
[2018-12-28] MEDS: DOCUSATE SODIUM 100 MG CAP PO SCH ×2 (09:32→21:32)
[2018-12-28] MEDS: ASPIRIN EC 81 MG TAB PO SCH (09:32)
[2018-12-28] MEDS: amLODIPine 10 MG TAB PO SCH (09:33)
[2018-12-28] MEDS: ARFORMOTEROL 15 MCG/2 ML NEBU IH SCH ×2 (10:18→20:08)
[2018-12-28] MEDS: BUDESONIDE 0.5 MG/2 ML NEBU IH SCH ×2 (10:19→20:09)
--- NOTE | 2018-12-28 13:36 | Progress Note ---
Assessment and Plan Assessment and plan: 78-year-old man who was at rehab. He is being treated for septic arthritis with IV antibiotics at rehab facility. He presents with a left upper extremity PICC line Past medical history; hypertension, obstructive lung disease CT head negative Likely anemia of chronic disease, patient has been transfused, patient on empiric antibiotics. Received dietitian consult for malnutrition, patient improved cont iv abx, awaiting auth prior to dc back to SNF Septic arthritis, reviewed documentation from previous admission. Patient was to continue Rocephin 2 g every 24 hours until 12/27/2018, after which PICC line can be removed. And patient will be on Cefdinir twice daily x2 weeks Diagnosis Sepsis UTI? fup urine cx Septic arthritis involving R UE Anemia of chronic disease Hypertension Asthma History Interval history: Review of systems Constitutional: No fevers, no malaise, no joint pains CVS: No chest pain, no orthopnea, no pedal edema GI: No abdominal pain, no diarrhea, no vomiting, no constipation Respiratory: No shortness of breath, no wheezing, no coughing Hospitalist Physical - Physical exam Narrative exam: General.: Appears well, no distress, nontoxic HEENT: Moist mucous membranes, extraocular muscles intact, no lymphadenopathy Neck: supple Cardiac: S1-S2 heard Lungs: clear to auscultation bilaterally Abdomen: soft , nontender, nondistended, bowel sounds positive Extremities: no edema clubbing or cyanosis Skin: no rash or lesions Neurologic: no gross focal deficits Psych: calm, and cooperative - Constitutional Vitals: Temp Pulse Resp BP Pulse Ox 98.1 F 80 18 117/66 100 12/28/18 08:57 12/28/18 10:18 12/28/18 10:18 12/28/18 13:35 12/28/18 04:16 General appearance: Present: no acute distress, well-nourished Results - Labs CBC & Chem 7: 12/25/18 04:02 12/25/18 04:02 Labs: Laboratory Last Values WBC 13.8 K/mm3 (4.5-11.0) H 12/25/18 04:02 RBC 3.02 M/mm3 (3.65-5.03) L 12/25/18 04:02 Hgb 8.2 gm/dl (11.8-15.2) L 12/25/18 04:02 Hct 25.7 % (35.5-45.6) L 12/25/18 04:02 MCV 85 fl (84-94) 12/25/18 04:02 MCH 27 pg (28-32) L 12/25/18 04:02 MCHC 32 % (32-34) 12/25/18 04:02 RDW 20.9 % (13.2-15.2) H 12/25/18 04:02 Plt Count 81 K/mm3 (140-440) L 12/25/18 04:02 [place] % (Auto) [employer] Vice President 12/25/18 04:02 Add Manual Diff Complete 12/25/18 04:02 Total Counted 100 12/25/18 04:02 Seg Neutrophils % [employer] Vice President 12/25/18 04:02 Seg Neuts % (Manual) 50.0 % (40.0-70.0) 12/25/18 04:02 Band Neutrophils % 3.0 % 12/25/18 04:02 Lymphocytes % (Manual) 15.0 % (13.4-35.0) 12/25/18 04:02 Reactive Lymphs % (Man) 0 % 12/25/18 04:02 Monocytes % (Manual) 32.0 % (0.0-7.3) H 12/25/18 04:02 Eosinophils % (Manual) 0 % (0.0-4.3) 12/25/18 04:02 Basophils % (Manual) 0 % (0.0-1.8) 12/25/18 04:02 Metamyelocytes % 0 % 12/25/18 04:02 Myelocytes % 0 % 12/25/18 04:02 Promyelocytes % 0 % 12/25/18 04:02 Blast Cells % 0 % 12/25/18 04:02 Nucleated RBC % Not Reportable 12/25/18 04:02 Seg Neutrophils # Man 6.9 K/mm3 (1.8-7.7) 12/25/18 04:02 Band Neutrophils # 0.4 K/mm3 12/25/18 04:02 Lymphocytes # (Manual) 2.1 K/mm3 (1.2-5.4) 12/25/18 04:02 Abs React Lymphs (Man) 0.0 K/mm3 12/25/18 04:02 Monocytes # (Manual) 4.4 K/mm3 (0.0-0.8) H 12/25/18 04:02 Eosinophils # (Manual) 0.0 K/mm3 (0.0-0.4) 12/25/18 04:02 Basophils # (Manual) 0.0 K/mm3 (0.0-0.1) 12/25/18 04:02 Metamyelocytes # 0.0 K/mm3 12/25/18 04:02 Myelocytes # 0.0 K/mm3 12/25/18 04:02 Promyelocytes # 0.0 K/mm3 12/25/18 04:02 Blast Cells # 0.0 K/mm3 12/25/18 04:02 Pathologist Review 12/25/18 08:26 WBC Morphology Not Reportable 12/25/18 04:02 Hypersegmented Neuts Not Reportable 12/25/18 04:02 Hyposegmented Neuts Not Reportable 12/25/18 04:02 Hypogranular Neuts Not Reportable 12/25/18 04:02 Smudge Cells Not Reportable 12/25/18 04:02 Toxic Granulation Not Reportable 12/25/18 04:02 Toxic Vacuolation Not Reportable 12/25/18 04:02 Dohle Bodies Not Reportable 12/25/18 04:02 Pelger-Huet Anomaly Not Reportable 12/25/18 04:02 Willow Rods Not Reportable 12/25/18 04:02 Platelet Estimate Consistent w auto 12/25/18 04:02 Clumped Platelets Not Reportable 12/25/18 04:02 Plt Clumps, EDTA Not Reportable 12/25/18 04:02 Large Platelets Not Reportable 12/25/18 04:02 Giant Platelets Not Reportable 12/25/18 04:02 Platelet Satelliting Not Reportable 12/25/18 04:02 Plt Morphology Comment Not Reportable 12/25/18 04:02 RBC Morphology Not Reportable 12/25/18 04:02 Dimorphic RBCs Not Reportable 12/25/18 04:02 Polychromasia Not Reportable 12/25/18 04:02 Hypochromasia 1+ 12/25/18 04:02 Poikilocytosis Not Reportable 12/25/18 04:02 Anisocytosis 1+ 12/25/18 04:02 Microcytosis Few 12/25/18 04:02 Macrocytosis Not Reportable 12/25/18 04:02 Spherocytes Not Reportable 12/25/18 04:02 Pappenheimer Bodies Not Reportable 12/25/18 04:02 Sickle Cells Not Reportable 12/25/18 04:02 Target Cells Not Reportable 12/25/18 04:02 Tear Drop Cells Not Reportable 12/25/18 04:02 Ovalocytes Not Reportable 12/25/18 04:02 Helmet Cells Not Reportable 12/25/18 04:02 [place] Bodies Not Reportable 12/25/18 04:02 [place] Rings Not Reportable 12/25/18 04:02 [place] Cells Not Reportable 12/25/18 04:02 Bite Cells Not Reportable 12/25/18 04:02 Crenated Cell Not Reportable 12/25/18 04:02 Elliptocytes Not Reportable 12/25/18 04:02 Acanthocytes (Spur) Not Reportable 12/25/18 04:02 Rouleaux Not Reportable 12/25/18 04:02 Hemoglobin C Crystals Not Reportable 12/25/18 04:02 Schistocytes Not Reportable 12/25/18 04:02 Malaria parasites Not Reportable 12/25/18 04:02 [place] Bodies Not Reportable 12/25/18 04:02 Hem Pathologist Commnt Sent 12/25/18 04:02 PT 17.1 Sec. (12.2-14.9) H 12/24/18 17:04 INR 1.41 (0.87-1.13) H 12/24/18 17:04 APTT 36.2 Sec. (24.2-36.6) 12/24/18 17:04 Sodium 137 mmol/L (137-145) 12/25/18 04:02 Potassium 3.7 mmol/L (3.6-5.0) 12/25/18 04:02 Chloride 101.5 mmol/L (98-107) 12/25/18 04:02 Carbon Dioxide 21 mmol/L (22-30) L 12/25/18 04:02 Anion Gap 18 mmol/L 12/25/18 04:02 BUN 9 mg/dL (9-20) 12/25/18 04:02 Creatinine 0.8 mg/dL (0.8-1.5) 12/25/18 04:02 Estimated GFR > 60 ml/min 12/25/18 04:02 BUN/Creatinine Ratio 11 % 12/25/18 04:02 Glucose 107 mg/dL (75-100) H 12/25/18 04:02 Hemoglobin A1c 5.8 % (4-6) 12/24/18 17:04 Calcium 8.4 mg/dL (8.4-10.2) 12/25/18 04:02 Iron 20 ug/dL (49-181) L 12/25/18 04:02 TIBC 133 mcg/dL (250-450) L 12/25/18 04:02 % Saturation 15.04 % 12/25/18 04:02 Transferrin 114 mg/dl (180-329) L 12/25/18 04:02 Total Bilirubin 0.40 mg/dL (0.1-1.2) 12/25/18 04:02 AST 21 units/L (5-40) 12/25/18 04:02 ALT 35 units/L (7-56) 12/25/18 04:02 Alkaline Phosphatase 84 units/L (35-129) 12/25/18 04:02 Total Protein 7.1 g/dL (6.3-8.2) 12/25/18 04:02 Albumin 2.8 g/dL (3.9-5) L 12/25/18 04:02 Albumin/Globulin Ratio 0.7 % 12/25/18 04:02 Vitamin B12 906.8 pg/mL (211-911) 12/25/18 04:02 Urine Color Yellow (Yellow) 12/24/18 19:17 Urine Turbidity Cloudy (Clear) 12/24/18 19:17 Urine pH 6.0 (5.0-7.0) 12/24/18 19:17 Ur Specific [place] 1.014 (1.003-1.030) 12/24/18 19:17 Urine Protein 30 mg/dl mg/dL (Negative) 12/24/18 19:17 Urine Glucose (UA) Neg mg/dL (Negative) 12/24/18 19:17 Urine Ketones Neg mg/dL (Negative) 12/24/18 19:17 Urine Blood Sm (Negative) 12/24/18 19:17 Urine Nitrite Neg (Negative) 12/24/18 19:17 Urine Bilirubin Neg (Negative) 12/24/18 19:17 Urine Urobilinogen < 2.0 mg/dL (<2.0) 12/24/18 19:17 Ur Leukocyte Esterase Sm (Negative) 12/24/18 19:17 Urine WBC (Auto) 39.0 /HPF (0.0-6.0) H 12/24/18 19:17 Urine RBC (Auto) 13.0 /HPF (0.0-6.0) 12/24/18 19:17 U Epithel Cells (Auto) 1.0 /HPF (0-13.0) 12/24/18 19:17 Urine Bacteria (Auto) 2+ /HPF (Negative) 12/24/18 19:17 Urine Mucus Few /HPF 12/24/18 19:17 Urine Yeast (Budding) 3+ /HPF 12/24/18 19:17 Blood Type B POSITIVE 12/24/18 17:05 Antibody Screen Negative 12/24/18 17:05 Crossmatch See Detail 12/24/18 17:05 Active Medications - Current Medications Current Medications: Generic Name Dose Route Start Last Admin Trade Name Freq PRN Reason Stop Dose Admin Acetaminophen 650 mg 12/24/18 22:42 Tylenol PO Q4H PRN Pain MILD(1-3)/Fever >100.5/[place] Albuterol 2.5 mg 12/24/18 22:56 Proventil IH Q4HRT PRN Shortness Of Breath Amlodipine Besylate 10 mg 12/25/18 10:00 12/28/18 09:33 Amlodipine PO Not Given DAILY STEVE Arformoterol Tartrate 15 mcg 12/25/18 08:00 12/28/18 10:18 Brovana Nebu IH 15 mcg Q12HRT STEVE Administration Aspirin 81 mg 12/25/18 10:00 12/28/18 09:32 Halfprin Ec PO 81 mg QDAY STEVE Administration Budesonide 0.5 mg 12/25/18 08:00 12/28/18 10:19 Pulmicort IH 0.5 mg Q12HRT STEVE Administration Docusate Sodium 100 mg 12/25/18 10:00 12/28/18 09:32 Colace PO 100 mg BID STEVE Administration Hydromorphone HCl 0.5 mg 12/24/18 22:42 12/27/18 19:45 Dilaudid IV 0.5 mg Q3H PRN Administration Pain , Severe (7-10) Ceftriaxone Sodium 2 gm in 100 mls @ 200 mls/hr 12/25/18 10:00 12/28/18 09:32 Rocephin/Ns 2 Gm/100 Ml IV 12/29/18 10:29 200 mls/hr Q24HR STEVE Administration Protocol Multivitamins/Minerals 1 each 12/25/18 15:00 12/28/18 09:32 Theragran-M Tab PO 1 each QDAY STEVE Administration Ondansetron HCl 4 mg 12/24/18 22:42 Zofran IV Q8H PRN Nausea And Vomiting Oxycodone/Acetaminophen 1 tab 12/24/18 22:38 12/27/18 23:26 Percocet 5/325 PO 1 tab Q6H PRN Administration Pain, Moderate (4-6) Sodium Chloride 10 ml 12/25/18 10:00 12/28/18 09:32 Sodium Chloride Flush Syringe 10 Ml IV 10 ml BID STEVE Administration Sodium Chloride 10 ml 12/24/18 22:42 Sodium Chloride Flush Syringe 10 Ml IV PRN PRN LINE FLUSH Zolpidem Tartrate 5 mg 12/24/18 22:42 12/24/18 23:12 Ambien PO 5 mg QHS PRN Administration Insomnia Nutrition/Malnutrition Assess - Dietary Evaluation Nutrition/Malnutrition Findings: Nutrition Notes Start: 12/25/18 10:55 Freq: Status: Active Protocol: Document 12/28/18 10:17 CT (Rec: 12/28/18 10:41 CT [id number]) Co-Sign 12/28/18 10:17 LP Nutrition Notes Initial or Follow up Reassessment Current Diagnosis Hypertension Other Pertinent Diagnosis Asthma, Septic Arthritis on Oral abx Current Diet Cardiac Diet double portions, Ensure Enlive Labs/Tests Reviewed Pertinent Medications Reviewed Height 5 ft 9 in Weight 71.7 kg Usual Body Weight 77.7 kg [place] Body Weight (kg) 72.72 BMI 23.3 Intake Prior to Admission Good Weight Status Appropriate Subjective/Other Information Pt follow up for PO and ONS intake. Pt drank all of his Ensure for breakfast. Pt ate 10% of his breakfast, and states that he is receiving more food than yesterday. Pt report of eating all of his dinner the previous night. Noted pt on breathing treatment. Percent of energy/protein needs met: 89% energy / 100% protein Burn Absent Trauma Absent GI Symptoms None Minimum of two criteria Yes Energy Intake (non-severe) <75% Estimated Energy Requirement >7 days Interpretation of Weight Loss (severe) > 20% in 1 year Body Fat Depletion Moderate depletion (severe) Muscle Mass Moderate Depletion (severe) #1 Nutrition Diagnosis Malnutrition Diagnosis Progress(for reassessment Continues documentation) Is patient on ventilator? No Is Patient Ambulatory and/or Out of Bed No REE-([facility]-confined to bed) 1731.288 Kcal/Kg value to use for calculation 30 Approximate Energy Requirements Using 2151 kcal/Kg Calculation Used for Recommendations Kcal/kg Additional Notes PRO needs 83-104 g/day (1.2-1. 5 g/kg/day) Fluid needs: 1 ml/kcal Nutrition Intervention Change Diet Order: Continue current diet Add Supplement/Snack (indicate name/kcal Ensure Enlive TID Chocolate /protein ) Provides kCal: 1,050 Provides Protein (gm) 60 Goal #1 Meet >80% of energy and protein needs Goal #2 Wt gain/maintenance Anticipated Discharge Needs: Regular Diet Follow-Up By: 01/01/19 Additional Comments PO and ONS intake Receiving 3 Ensure
[2018-12-28] MEDS: ZOLPIDEM 5 MG TAB PO PRN (21:32)
[2018-12-29] MEDS: oxyCODONE /ACETAMINOPHEN 5-325MG TAB PO PRN (02:26)
[2018-12-29 08:02] VITALS: BP 105/44
[2018-12-29] MEDS: ARFORMOTEROL 15 MCG/2 ML NEBU IH SCH (09:05)
[2018-12-29] MEDS: BUDESONIDE 0.5 MG/2 ML NEBU IH SCH (09:05)
[2018-12-29] MEDS: MULTIVITAMINS,THER W-MINERALS TAB PO SCH (10:33)
[2018-12-29] MEDS: cefTRIAXone/NS 2 GM/100 ML 2 GM/100 ML BAG IV SCH (10:33)
[2018-12-29] MEDS: ASPIRIN EC 81 MG TAB PO SCH (10:33)
[2018-12-29] MEDS: DOCUSATE SODIUM 100 MG CAP PO SCH (10:33)
[2018-12-29] MEDS: amLODIPine 10 MG TAB PO SCH (10:34)
--- NOTE | 2018-12-29 14:55 | Progress Note ---
Hospitalist Physical - Constitutional Vitals: Temp Pulse Resp BP Pulse Ox 98.9 F 80 18 105/44 97 12/29/18 07:24 12/29/18 10:34 12/29/18 10:00 12/29/18 10:34 12/29/18 07:24 General appearance: Present: no acute distress, well-nourished Results - Labs CBC & Chem 7: 12/25/18 04:02 12/25/18 04:02 Labs: Laboratory Last Values WBC 13.8 K/mm3 (4.5-11.0) H 12/25/18 04:02 RBC 3.02 M/mm3 (3.65-5.03) L 12/25/18 04:02 Hgb 8.2 gm/dl (11.8-15.2) L 12/25/18 04:02 Hct 25.7 % (35.5-45.6) L 12/25/18 04:02 MCV 85 fl (84-94) 12/25/18 04:02 MCH 27 pg (28-32) L 12/25/18 04:02 MCHC 32 % (32-34) 12/25/18 04:02 RDW 20.9 % (13.2-15.2) H 12/25/18 04:02 Plt Count 81 K/mm3 (140-440) L 12/25/18 04:02 [place] % (Auto) Laminating Machine Operator 12/25/18 04:02 Add Manual Diff Complete 12/25/18 04:02 Total Counted 100 12/25/18 04:02 Seg Neutrophils % Laminating Machine Operator 12/25/18 04:02 Seg Neuts % (Manual) 50.0 % (40.0-70.0) 12/25/18 04:02 Band Neutrophils % 3.0 % 12/25/18 04:02 Lymphocytes % (Manual) 15.0 % (13.4-35.0) 12/25/18 04:02 Reactive Lymphs % (Man) 0 % 12/25/18 04:02 Monocytes % (Manual) 32.0 % (0.0-7.3) H 12/25/18 04:02 Eosinophils % (Manual) 0 % (0.0-4.3) 12/25/18 04:02 Basophils % (Manual) 0 % (0.0-1.8) 12/25/18 04:02 Metamyelocytes % 0 % 12/25/18 04:02 Myelocytes % 0 % 12/25/18 04:02 Promyelocytes % 0 % 12/25/18 04:02 Blast Cells % 0 % 12/25/18 04:02 Nucleated RBC % Not Reportable 12/25/18 04:02 Seg Neutrophils # Man 6.9 K/mm3 (1.8-7.7) 12/25/18 04:02 Band Neutrophils # 0.4 K/mm3 12/25/18 04:02 Lymphocytes # (Manual) 2.1 K/mm3 (1.2-5.4) 12/25/18 04:02 Abs React Lymphs (Man) 0.0 K/mm3 12/25/18 04:02 Monocytes # (Manual) 4.4 K/mm3 (0.0-0.8) H 12/25/18 04:02 Eosinophils # (Manual) 0.0 K/mm3 (0.0-0.4) 12/25/18 04:02 Basophils # (Manual) 0.0 K/mm3 (0.0-0.1) 12/25/18 04:02 Metamyelocytes # 0.0 K/mm3 12/25/18 04:02 Myelocytes # 0.0 K/mm3 12/25/18 04:02 Promyelocytes # 0.0 K/mm3 12/25/18 04:02 Blast Cells # 0.0 K/mm3 12/25/18 04:02 Pathologist Review 12/25/18 08:26 WBC Morphology Not Reportable 12/25/18 04:02 Hypersegmented Neuts Not Reportable 12/25/18 04:02 Hyposegmented Neuts Not Reportable 12/25/18 04:02 Hypogranular Neuts Not Reportable 12/25/18 04:02 Smudge Cells Not Reportable 12/25/18 04:02 Toxic Granulation Not Reportable 12/25/18 04:02 Toxic Vacuolation Not Reportable 12/25/18 04:02 Dohle Bodies Not Reportable 12/25/18 04:02 Pelger-Huet Anomaly Not Reportable 12/25/18 04:02 Willow Rods Not Reportable 12/25/18 04:02 Platelet Estimate Consistent w auto 12/25/18 04:02 Clumped Platelets Not Reportable 12/25/18 04:02 Plt Clumps, EDTA Not Reportable 12/25/18 04:02 Large Platelets Not Reportable 12/25/18 04:02 Giant Platelets Not Reportable 12/25/18 04:02 Platelet Satelliting Not Reportable 12/25/18 04:02 Plt Morphology Comment Not Reportable 12/25/18 04:02 RBC Morphology Not Reportable 12/25/18 04:02 Dimorphic RBCs Not Reportable 12/25/18 04:02 Polychromasia Not Reportable 12/25/18 04:02 Hypochromasia 1+ 12/25/18 04:02 Poikilocytosis Not Reportable 12/25/18 04:02 Anisocytosis 1+ 12/25/18 04:02 Microcytosis Few 12/25/18 04:02 Macrocytosis Not Reportable 12/25/18 04:02 Spherocytes Not Reportable 12/25/18 04:02 Pappenheimer Bodies Not Reportable 12/25/18 04:02 Sickle Cells Not Reportable 12/25/18 04:02 Target Cells Not Reportable 12/25/18 04:02 Tear Drop Cells Not Reportable 12/25/18 04:02 Ovalocytes Not Reportable 12/25/18 04:02 Helmet Cells Not Reportable 12/25/18 04:02 [place] Bodies Not Reportable 12/25/18 04:02 [place] Rings Not Reportable 12/25/18 04:02 [place] Cells Not Reportable 12/25/18 04:02 Bite Cells Not Reportable 12/25/18 04:02 Crenated Cell Not Reportable 12/25/18 04:02 Elliptocytes Not Reportable 12/25/18 04:02 Acanthocytes (Spur) Not Reportable 12/25/18 04:02 Rouleaux Not Reportable 12/25/18 04:02 Hemoglobin C Crystals Not Reportable 12/25/18 04:02 Schistocytes Not Reportable 12/25/18 04:02 Malaria parasites Not Reportable 12/25/18 04:02 Terry Bodies Not Reportable 12/25/18 04:02 Hem Pathologist Commnt Sent 12/25/18 04:02 PT 17.1 Sec. (12.2-14.9) H 12/24/18 17:04 INR 1.41 (0.87-1.13) H 12/24/18 17:04 APTT 36.2 Sec. (24.2-36.6) 12/24/18 17:04 Sodium 137 mmol/L (137-145) 12/25/18 04:02 Potassium 3.7 mmol/L (3.6-5.0) 12/25/18 04:02 Chloride 101.5 mmol/L (98-107) 12/25/18 04:02 Carbon Dioxide 21 mmol/L (22-30) L 12/25/18 04:02 Anion Gap 18 mmol/L 12/25/18 04:02 BUN 9 mg/dL (9-20) 12/25/18 04:02 Creatinine 0.8 mg/dL (0.8-1.5) 12/25/18 04:02 Estimated GFR > 60 ml/min 12/25/18 04:02 BUN/Creatinine Ratio 11 % 12/25/18 04:02 Glucose 107 mg/dL (75-100) H 12/25/18 04:02 Hemoglobin A1c 5.8 % (4-6) 12/24/18 17:04 Calcium 8.4 mg/dL (8.4-10.2) 12/25/18 04:02 Iron 20 ug/dL (49-181) L 12/25/18 04:02 TIBC 133 mcg/dL (250-450) L 12/25/18 04:02 % Saturation 15.04 % 12/25/18 04:02 Transferrin 114 mg/dl (180-329) L 12/25/18 04:02 Total Bilirubin 0.40 mg/dL (0.1-1.2) 12/25/18 04:02 AST 21 units/L (5-40) 12/25/18 04:02 ALT 35 units/L (7-56) 12/25/18 04:02 Alkaline Phosphatase 84 units/L (35-129) 12/25/18 04:02 Total Protein 7.1 g/dL (6.3-8.2) 12/25/18 04:02 Albumin 2.8 g/dL (3.9-5) L 12/25/18 04:02 Albumin/Globulin Ratio 0.7 % 12/25/18 04:02 Vitamin B12 906.8 pg/mL (211-911) 12/25/18 04:02 RBC Folic Acid >1000 ng/mL (>280) 12/25/18 04:02 Urine Color Yellow (Yellow) 12/24/18 19:17 Urine Turbidity Cloudy (Clear) 12/24/18 19:17 Urine pH 6.0 (5.0-7.0) 12/24/18 19:17 Ur Specific [place] 1.014 (1.003-1.030) 12/24/18 19:17 Urine Protein 30 mg/dl mg/dL (Negative) 12/24/18 19:17 Urine Glucose (UA) Neg mg/dL (Negative) 12/24/18 19:17 Urine Ketones Neg mg/dL (Negative) 12/24/18 19:17 Urine Blood Sm (Negative) 12/24/18 19:17 Urine Nitrite Neg (Negative) 12/24/18 19:17 Urine Bilirubin Neg (Negative) 12/24/18 19:17 Urine Urobilinogen < 2.0 mg/dL (<2.0) 12/24/18 19:17 Ur Leukocyte Esterase Sm (Negative) 12/24/18 19:17 Urine WBC (Auto) 39.0 /HPF (0.0-6.0) H 12/24/18 19:17 Urine RBC (Auto) 13.0 /HPF (0.0-6.0) 12/24/18 19:17 U Epithel Cells (Auto) 1.0 /HPF (0-13.0) 12/24/18 19:17 Urine Bacteria (Auto) 2+ /HPF (Negative) 12/24/18 19:17 Urine Mucus Few /HPF 12/24/18 19:17 Urine Yeast (Budding) 3+ /HPF 12/24/18 19:17 Blood Type B POSITIVE 12/24/18 17:05 Antibody Screen Negative 12/24/18 17:05 Crossmatch See Detail 12/24/18 17:05 Active Medications - Current Medications Current Medications: Generic Name Dose Route Start Last Admin Trade Name Freq PRN Reason Stop Dose Admin Acetaminophen 650 mg 12/24/18 22:42 Tylenol PO Q4H PRN Pain MILD(1-3)/Fever >100.5/[place] Albuterol 2.5 mg 12/24/18 22:56 Proventil IH Q4HRT PRN Shortness Of Breath Amlodipine Besylate 10 mg 12/25/18 10:00 12/29/18 10:34 Amlodipine PO Not Given DAILY STEVE Arformoterol Tartrate 15 mcg 12/25/18 08:00 12/29/18 09:05 [place] IH 15 mcg Q12HRT STEVE Administration Aspirin 81 mg 12/25/18 10:00 12/29/18 10:33 Halfprin Ec PO 81 mg QDAY STEVE Administration Budesonide 0.5 mg 12/25/18 08:00 12/29/18 09:05 Pulmicort IH 0.5 mg Q12HRT STEVE Administration Docusate Sodium 100 mg 12/25/18 10:00 12/29/18 10:33 Colace PO 100 mg BID STEVE Administration Hydromorphone HCl 0.5 mg 12/24/18 22:42 12/27/18 19:45 Dilaudid IV 0.5 mg Q3H PRN Administration Pain , Severe (7-10) Multivitamins/Minerals 1 each 12/25/18 15:00 12/29/18 10:33 Theragran-M Tab PO 1 each QDAY STEVE Administration Ondansetron HCl 4 mg 12/24/18 22:42 Zofran IV Q8H PRN Nausea And Vomiting Oxycodone/Acetaminophen 1 tab 12/24/18 22:38 12/29/18 02:26 Percocet 5/325 PO 1 tab Q6H PRN Administration Pain, Moderate (4-6) Sodium Chloride 10 ml 12/25/18 10:00 12/29/18 10:34 Sodium Chloride Flush Syringe 10 Ml IV 10 ml BID STEVE Administration Sodium Chloride 10 ml 12/24/18 22:42 Sodium Chloride Flush Syringe 10 Ml IV PRN PRN LINE FLUSH Zolpidem Tartrate 5 mg 12/24/18 22:42 12/28/18 21:32 Ambien PO 5 mg QHS PRN Administration Insomnia Nutrition/Malnutrition Assess - Dietary Evaluation Nutrition/Malnutrition Findings: Nutrition Notes Start: 12/25/18 10:55 Freq: Status: Active Protocol: Document 12/28/18 10:17 CT (Rec: 12/28/18 10:41 CT [id number]) Co-Sign 12/28/18 10:17 LP Nutrition Notes Initial or Follow up Reassessment Current Diagnosis Hypertension Other Pertinent Diagnosis Asthma, 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 Pt drank all of his Ensure for breakfast. Pt ate 10% of his breakfast, and states that he is receiving more food than yesterday. Pt report of eating all of his dinner the previous night. Noted pt on breathing treatment. Percent of energy/protein needs met: 89% energy / 100% protein Burn Absent Trauma Absent GI Symptoms None Minimum of two criteria Yes Energy Intake (non-severe) <75% Estimated Energy Requirement >7 days Interpretation of Weight Loss (severe) > 20% in 1 year Body Fat Depletion Moderate depletion (severe) Muscle Mass Moderate Depletion (severe) #1 Nutrition Diagnosis Malnutrition Diagnosis Progress(for reassessment Continues documentation) Is patient on ventilator? No Is Patient Ambulatory and/or Out of Bed No REE-([place]-confined to bed) 1731.288 Kcal/Kg value to use for calculation 30 Approximate Energy Requirements Using 2151 kcal/Kg Calculation Used for Recommendations Kcal/kg Additional Notes PRO needs 83-104 g/day (1.2-1. 5 g/kg/day) Fluid needs: 1 ml/kcal Nutrition Intervention Change Diet Order: Continue current diet Add Supplement/Snack (indicate name/kcal Ensure Enlive TID Chocolate /protein ) Provides kCal: 1,050 Provides Protein (gm) 60 Goal #1 Meet >80% of energy and protein needs Goal #2 Wt gain/maintenance Anticipated Discharge Needs: Regular Diet Follow-Up By: 01/01/19 Additional Comments PO and ONS intake Receiving 3 Ensure
== END 2018-12-29 19:45 | disposition home or self-care (01) | DRG 812 ==
LOC: ED 14:20 → 4A 18:22 → 2B-ACE 12-28 18:52
PROVIDERS: ADMIT Internal Medicine; ATTEND Internal Medicine
PROC: 30233N1 Transfusion of Nonautologous Red Blood Cells into Peripheral Vein, Percutaneous Approach (ICD-10-PCS; principal; 2018-12-24)
DX: D50.9 Iron deficiency anemia, unspecified (principal); E44.0 Moderate protein-calorie malnutrition; C92.10 Chronic myeloid leukemia, BCR/ABL-positive, not having achieved remission; N39.0 Urinary tract infection, site not specified; D63.8 Anemia in other chronic diseases classified elsewhere; I10 Essential (primary) hypertension; J45.909 Unspecified asthma, uncomplicated; Z68.24 Body mass index [BMI] 24.0-24.9, adult; Z82.49 Family history of ischemic heart disease and other diseases of the circulatory system; Z79.82 Long term (current) use of aspirin; Z79.899 Other long term (current) drug therapy; Z79.51 Long term (current) use of inhaled steroids
CPT/HCPCS: 36415; 70450; 80053; 81001; 82607; 82747; 83036; 83550; 85007; 85025; 85610; 85730; 86850; 86900; 86901; 86920; 87086; 87116; 94640; 96360; G0378; J0696; J1170; J7040; P9016